=== PATIENT | female | born 1975 | race African-American/Black ===

== ENCOUNTER 2019-04-23 23:06 | Inpatient (IN) | payer OTHER ==
[2019-04-23] MEDS ORDERED: NORMAL SALINE 1000 ML 1,000 ML IV ONE (23:46)
--- NOTE | 2019-04-23 23:46 | ER Document Report ---
ED Medical Screen (RME) - General Chief Complaint: Nausea Stated Complaint: NAUSEA Time Seen by Provider: 04/23/19 23:35 Primary Care Provider: EYAD SMALLS MD [Primary Care Provider] - Follow up as needed Mode of Arrival: Wheelchair Information source: Patient, Relative Notes: 44-year-old female with history of sarcoidosis presents emergency department with altered mental status feeling very weak. Reports symptoms started on . Denies fever vomiting diarrhea. Reports she feels like she might be dehydrated. Patient reports she feels very very weak. Her cousin reports she is just not acting right. No obvious neuro deficit noted. I have greeted and performed a rapid initial assessment of this patient. A comprehensive ED assessment and evaluation of the patient, analysis of test results and completion of the medical decision making process will be conducted by additional ED providers. TRAVEL OUTSIDE OF THE [place] IN LAST 30 DAYS: No Physical Exam - Vital signs Vitals: Temp Pulse Resp BP Pulse Ox 98.5 F 127 H 20 99/59 L 95 04/23/19 23:14 04/23/19 23:14 04/23/19 23:14 04/23/19 23:14 04/23/19 23:14 Course - Vital Signs Vital signs: Temp Pulse Resp BP Pulse Ox 98.5 F 127 H 20 99/59 L 95 04/23/19 23:14 04/23/19 23:14 04/23/19 23:14 04/23/19 23:14 04/23/19 23:14 Doctor's Discharge - Discharge Referrals: EYAD SMALLS MD [Primary Care Provider] - Follow up as needed
[2019-04-24 01:00] LABS: HEMATOCRIT 38.6 % (36.0-47.0); HEMOGLOBIN 12.6 g/dL (12.0-15.5); MEAN CORPUSCULAR HEMOGLOBIN 22.7 pg (27.0-33.4); MEAN CORPUSCULAR HGB CONC 32.6 g/dL (32.0-36.0); MEAN CORPUSCULAR VOLUME 70 fl (80-97); PLATELET COUNT 377 10^3/uL (150-450); RED BLOOD COUNT 5.55 10^6/uL (3.72-5.28); WHITE BLOOD COUNT 20.1 10^3/uL (4.0-10.5)
[2019-04-24 01:17] LABS: ALBUMIN 4.6 g/dL (3.5-5.0); ALKALINE PHOSPHATASE 78 U/L (38-126); ASPARTATE AMINO TRANSFERASE 45 U/L (14-36); BILIRUBIN,DIRECT 0.6 mg/dL (0.0-0.4); BILIRUBIN,TOTAL 1.5 mg/dL (0.2-1.3); BLOOD UREA NITROGEN 67 mg/dL (7-20); CARBON DIOXIDE 26 mmol/L (22-30); CHLORIDE 93 mmol/L (98-107); GLUCOSE 182 mg/dL (75-110); POTASSIUM 3.9 mmol/L (3.6-5.0); TOTAL PROTEIN 9.1 g/dL (6.3-8.2)
--- NOTE | 2019-04-24 01:17 | RADIOLOGY REPORT (SQ) ---
EXAM DESCRIPTION: XR CHEST 1 VIEW COMPLETED DATE/TME: 04/23/2019 23:46 CLINICAL HISTORY: tachypneic COMPARISON: None. FINDINGS: Single frontal view of the chest. Cardiomediastinal silhouette: Normal size and contour. Lungs: Linear bibasilar opacities. Low lung volumes. Leads overlie the chest. Bones: No acute osseous abnormality. Upper abdomen: No abnormality identified. IMPRESSION: 1. Linear bibasilar opacities likely represent subsegmental atelectasis.
[2019-04-24 01:21] LABS: ABSOLUTE LYMPHOCYTES# (MANUAL) 1.8 10^3/uL (0.5-4.7); ABSOLUTE MONOCYTES # (MANUAL) 1.8 10^3/uL (0.1-1.4); ANISOCYTOSIS 1+; BAND NEUTROPHILS % (MANUAL) 5 % (3-5); BASOPHILS % (MANUAL) 0 % (0-2); EOSINOPHILS % (MANUAL) 0 % (0-6); LYMPHOCYTES % (MANUAL) 9 % (13-45); MONOCYTES % (MANUAL) 9 % (3-13); PLATELET COMMENT ADEQUATE; POLYCHROMASIA 1+; SEGMENTED NEUTROPHILS % (MAN) 77 % (42-78); TOTAL CELLS COUNTED 100
[2019-04-24 01:23] LABS: A TYPE INFLUENZA AG NEGATIVE (NEGATIVE); B INFLUENZA AG NEGATIVE (NEGATIVE)
[2019-04-24 01:25] LABS: ANION GAP 21 (5-19)
[2019-04-24 01:26] LABS: CALCIUM 14.3 mg/dL (8.4-10.2)
[2019-04-24] MEDS ORDERED: RINGERS SOLUTION,LACTATED 1,000 ML IV PRN (01:30)
[2019-04-24] MEDS ORDERED: CEFEPIME 2 GM/D5W RTU 2 GM/50 ML RTUPB IV ONE (01:33)
[2019-04-24] MEDS ORDERED: FENTANYL CITRATE INJ/PF 100 MCG/2 ML AMPUL IV ONE (01:38)
[2019-04-24] MEDS ORDERED: ONDANSETRON HCL INJ/PF 4 MG/2 ML SDV IV ONE (01:38)
--- NOTE | 2019-04-24 01:48 | ER Document Report ---
ED General <LUPE TRINIDAD IV - Last Filed: 04/24/19 05:22> - General Mode of Arrival: Wheelchair TRAVEL OUTSIDE OF THE [place] IN LAST 30 DAYS: No <LETYDORIAN BARRERACHIARA Abernathy - Last Filed: 04/25/19 02:40> - General Chief Complaint: General Weakness Stated Complaint: NAUSEA Time Seen by Provider: 04/23/19 23:35 - HPI Notes: Patient is a 44-year-old female who presents to the emergency department for evaluation. Patient's cousin is primary historian. She states the patient has a history of psoriatic/rheumatoid arthritis. On Wednesday she complained of "not feeling well." She thought that the patient might have the flu. She told her to rest, stay well-hydrated. On , the patient admitted she been having some constipation. She took some magnesium citrate, states she has not had a bowel movement since then. Today, patient's cousin was unable to contact her. She went to the house, knocked on the door for some time, and eventually found the patient confused. She brought her here to the emergency department for furt her evaluation. The patient complains of some abdominal pain. She has had some nausea but no emesis. She is unaware of any eze fevers. (MYA DIAZ) - Related Data Allergies/Adverse Reactions: No Known Allergies Allergy (Unverified 04/24/19 02:03) Past Medical History - General Information source: Patient, Relative - Social History Smoking Status: Never Smoker Family History: Reviewed & Not Pertinent Patient has suicidal ideation: No Patient has homicidal ideation: No - Past Medical History Cardiac Medical History: Reports: Hx Hypertension Musculoskeletal Medical History: Reports Hx Arthritis - Psoriatic/rheumatoid arthritis <MYA DIAZ - Last Filed: 04/25/19 02:40> Review of Systems - Review of Systems Constitutional: See HPI EENT: No symptoms reported Cardiovascular: No symptoms reported Respiratory: No symptoms reported Gastrointestinal: See HPI Genitourinary: No symptoms reported Musculoskeletal: No symptoms reported Skin: No symptoms reported Neurological/Psychological: See HPI <MYA DIAZ - Last Filed: 04/25/19 02:40> Physical Exam <MYA DIAZ - Last Filed: 04/25/19 02:40> - Vital signs Vitals: Temp Pulse Resp BP Pulse Ox 98.5 F 127 H 20 99/59 L 95 04/23/19 23:14 04/23/19 23:14 04/23/19 23:14 04/23/19 23:14 04/23/19 23:14 - Notes Notes: This is a pleasant, obese, 44-year-old female who appears her stated age in no acute distress. She is awake and alert. She is slow to answer questions, but answers them all appropriately. Vital signs reviewed, please refer to chart. H ead is normocephalic, atraumatic. Pupils equal round, reactive to light. Oral mucosa is slightly dry, uvula is midline. Neck is supple without meningismus. Heart is tachycardic. Lungs are clear to auscultation bilaterally. Abdomen is soft, moderately tender diffusely without rebound or guarding, normoactive bowel sounds throughout. Extremities without cyanosis, clubbing. Posterior calves are nontender. Peripheral pulses are equal. Skin is warm and dry. Patient is awake, alert, oriented x3. Cranial nerves II - XII are grossly intact without focal neurological deficits. Strength is plus 5 out of 5 bilateral upper and lower extremities. Sensation is intact. Reflexes symmetrical. Intact [id number], rapid alternating movements, [id number]. (MYA DIAZ) Course - Laboratory Result Diagrams: 04/24/19 00:20 04/24/19 00:20 - Consults teddy mg Time consulted: 05:23 - accepted pt for dr salcido <LUPE TRINIDAD IV - Last Filed: 04/24/19 05:22> - Laboratory Result Diagrams: 04/24/19 00:20 04/24/19 07:10 - Diagnostic Test Radiology reviewed: Reports reviewed <MYA DIAZ - Last Filed: 04/25/19 02:40> - Re-evaluation Re-evalutation: 04/24/19 01:49 Patient presents to the emergency department for evaluation. She had initial laboratory investigations as ordered per care set. She was given IV fluids. Laboratory investigations revealed a 20,000 white count, acute renal failure, highly elevated lactic acid, hypercalcemia. She is given IV fluids. She is covered for sepsis with cefepime. Cultures were obtained. Because of her renal failure, Velasco catheter is ordered. Secondary to her significant abdominal tenderness, CT scan of the abdomen and pelvis is ordered as well. At this point, patient's blood pressure is marginal, but she remains awake and alert. We will continue to monitor. 04/24/19 03:[address] Black in regards to this patient. Given her multiple issues, he was concerned that she should be admitted to the ICU. I spoke with Mark Robles, nurse practitioner and school business manager, in regards to this patient. He will come down and evaluate the patient to see if she meets ICU criteria. Patient will either be admitted to ICU or IMC, final disposition to be determined. (MYA DIAZ) - Vital Signs Vital signs: Temp Pulse Resp BP Pulse Ox 97.1 F 122 H 29 H 128/55 H 100 04/24/19 16:00 04/24/19 16:00 04/24/19 16:00 04/24/19 16:00 04/24/19 16:00 - Laboratory Laboratory results interpreted by me: 04/24/19 04/24/19 04/24/19 00:20 00:20 00:20 WBC 20.1 H RBC 5.55 H MCV 70 L MCH 22.7 L RDW 17.0 H Lymphocytes % (Manual) 9 L Abs Neuts (Manual) 16.5 H Abs Monocytes (Manual) 1.8 H Chloride 93 L Anion Gap 21 H BUN 67 H Creatinine 6.54 H Est GFR ( Amer) 8 L Est GFR (MDRD) Non-Af 7 L Glucose 182 H Lactic Acid 5.6 H Calcium 14.3 H* Total Bilirubin 1.5 H Direct Bilirubin 0.6 H AST 45 H Total Protein 9.1 H Lipase Urine Protein Urine Glucose (UA) Urine Ketones Urine Blood Ur Leukocyte Esterase 04/24/19 04/24/19 04/24/19 00:20 02:23 05:00 WBC RBC MCV MCH RDW Lymphocytes % (Manual) Abs Neuts (Manual) Abs Monocytes (Manual) Chloride Anion Gap BUN Creatinine Est GFR ( Amer) Est GFR (MDRD) Non-Af Glucose Lactic Acid 3.3 H Calcium Total Bilirubin Direct Bilirubin AST Total Protein Lipase 3973.5 H Urine Protein 100 H Urine Glucose (UA) 50 H Urine Ketones TRACE H Urine Blood MODERATE H Ur Leukocyte Esterase LARGE H - EKG Interpretation by Me Additional EKG results interpreted by me: 04/24/19 01:51 Sinus tachycardia with a rate of 136 bpm. Normal axis and intervals. No acute ST changes concerning for ischemia or infarction. (MYA DIAZ) Critical Care Note - Critical Care Note Total time excluding time spent on procedures (mins): 50 <MYA DIAZ - Last Filed: 04/25/19 02:40> Discharge - Discharge Admitting Provider: Irvin (Bridge Maintenance Worker) Unit Admitted: ICU <LUPE TRINIDAD IV - Last Filed: 04/24/19 05:22> - Discharge Admitting Provider: Irvni (Bridge Maintenance Worker) Unit Admitted: ICU <MYA DIAZ - Last Filed: 04/25/19 02:40> - Discharge Clinical Impression: Hypercalcemia, Severe sepsis Acute renal failure Qualifiers: Acute renal failure type: unspecified Qualified Code(s): N17.9 - Acute kidney failure, unspecified Urinary tract infection Qualifiers: Urinary tract infection type: site unspecified Hematuria presence: with hematuria Qualified Code(s): N39.0 - Urinary tract infection, site not specified Acute pancreatitis Qualifiers: Pancreatitis type: unspecified pancreatitis type Acute pancreatitis com plication: unspecified Qualified Code(s): K85.90 - Acute pancreatitis without necrosis or infection, unspecified Condition: Stable Disposition: ADMITTED INPATIENT
[2019-04-24] MEDS: NORMAL SALINE 1000 ML 1,000 ML IV PRN ×2 (02:17→03:20)
[2019-04-24 03:03] LABS: APPEARANCE,URINE CLOUDY; BILIRUBIN,URINE NEGATIVE (NEGATIVE); COLOR,URINE AMBER; GLUCOSE, URINE 50 mg/dL (NEGATIVE); KETONES,URINE TRACE mg/dL (NEGATIVE); LEUKOCYTE ESTERASE,URINE LARGE (NEGATIVE); NITRITE,URINE NEGATIVE (NEGATIVE); PROTEIN,URINE 100 mg/dL (NEGATIVE); URINE SPECIFIC GRAVITY 1.019; UROBILINOGEN,URINE NEGATIVE mg/dL (<2.0)
--- NOTE | 2019-04-24 03:10 | RADIOLOGY REPORT (SQ) ---
CT ABDOMEN AND PELVIS WITHOUT INTRAVENOUS CONTRAST: 04/24/2019 2:03 AM GENERAL FARMWORKER HISTORY: 44-year old with abdominal pain, sepsis. COMPARISON: None available TECHNIQUE: Axial contiguous images were obtained from the lung bases to the proximal femurs without oral or intravenous contrast administered. Sagittal and coronal reconstructions were also obtained and reviewed. This exam was performed according to our departmental dose-optimization program, which includes automated exposure control, adjustment of the mA and/or KV according to the patient's size and/or use of iterative reconstruction technique. FINDINGS: No large effusion is seen. There is some linear bibasilar atelectasis. There are some fine small groundglass nodules, most pronounced within the right middle lobe. These measure up to 7-8 mm. A small hiatal hernia containing portions of the stomach is seen. Evaluation of the solid organs is limited by the lack of intravenous contrast. The visualized hepatic parenchyma is unremarkable. The gallbladder demonstrates no evidence of calcified gallstones The spleen is normal in size and contour. There is mild fullness of the left adrenal gland which may be secondary to adjacent inflammation. The pancreas is enlarged with diffuse adjacent inflammatory stranding. No obvious fluid collection is seen. This may represent evolving pancreatitis. The kidneys demonstrate no evidence of hydronephrosis. There are multiple renal calculi at least 1.6 cm at the right renal pelvis and 7-8 mm at the left renal pelvis. These are beginning to form staghorn calculi. There is a calculus at the midportion of the left ureter measuring up to 5 to 6 mm. Bladder is decompressed by Velasco catheter, but grossly appears unremarkable. The stomach is not well distended. The small bowel loops appear unremarkable. No pericolonic inflammatory stranding is seen. The appendix appears unremarkable. There is no evidence of pneumoperitoneum. Trace free fluid is seen within the lower pelvis. The aorta and IVC appear normal in size. There are multiple prominent retroperitoneal lymph nodes measuring up to 1.5 cm. Review of the bone show no evidence of any suspicious lytic or blastic lesions. IMPRESSION: The pancreas is enlarged with adjacent inflammatory stranding consistent with pancreatitis. Trace free fluid is also seen. Multiple bilateral renal calculi are seen. These are beginning to form staghorn calculi. There is also a 5 to 6 mm calculus midportion of the left ureter. Groundglass nodules are seen within the lung bases measuring up to 7 to 8 mm. This could have an inflammatory/infectious etiology. These will need interval follow-up to exclude an underlying neoplasm. There are prominent retroperitoneal lymph nodes which could be reactive in nature. These also need subsequent interval follow-up.
[2019-04-24] MEDS ORDERED: NORMAL SALINE 1000 ML 1,000 ML IV ONE (03:13)
[2019-04-24] MEDS ORDERED: 1/2 NORMAL SALINE 1,000 ML IV PRN (05:12)
[2019-04-24] MEDS ORDERED: GLUCAGON,HUMAN RECOMB 1 MG INJ IM PRN (05:21)
[2019-04-24] MEDS ORDERED: DEXTROSE 40% GEL 15 GM TUBE PO PRN ×2 (05:21)
[2019-04-24] MEDS ORDERED: DEXTROSE 50%-WATER 25 GM/50 ML DISP.SYRIN IV PRN ×2 (05:21)
[2019-04-24] MEDS ORDERED: IMIPENEM/CILASTATIN SODIUM INJ 500 MG VIAL IV SCH (06:00)
--- NOTE | 2019-04-24 06:29 | EKG REPORT ---
SEVERITY:- ABNORMAL ECG - SINUS TACHYCARDIA PROBABLE INFERIOR INFARCT, AGE INDETERMINATE : Confirmed by: John Benjamin MD 24-Apr-2019 06:28:44
[2019-04-24] MEDS ORDERED: INFLUENZA QUAD (6MOS+) 2019-20 VAC 0.5 ML SYR IM ONE (06:57)
[2019-04-24] MEDS: INSULIN REG, HUMAN 100 UNIT/ML 3 ML VIAL (PYX) SUBCUT SCH ×2 (07:08→12:37)
--- NOTE | 2019-04-24 07:38 | CRITICAL CARE ADMISSION REPORT ---
HPI Date:: 04/24/19 Time:: 04:05 Reason for ICU Reason:: Sepsis, Acute Pancreatitis HPI: Mrs Hodge is a 44 year-old female with a past medical Hx significant for HTN, psoriatic as well as rheumatory arthritis for which she denied recent steroid use, and renal insufficiency (for which she does not know her baseline Cr) who presented to [facility] with altered mental status. Per the patient's cousin, Mrs Hodge has been feeling ill about one week for which she recently developed nausea with vomiting and mid-epigastric pain. To note, she was recently treated for UTI two weeks ago with "Cipro." An abdominal CT was performed demonstrating pancreatic stranding as well as trace free fluid, lipase 3974, no gallstones or gallbladder dilation, social drinking for which last use was Thanksgiving. She was also found to be in severe sepsis with leukocytosis of 20k, tachycardia on admission HR 142, initially hypotensive BP 87/59 but improved with fluids to 104/68, lactate of 5.6. Other notable labs are hypercalcemia of 14.3 and an CASSANDRA with BUN/Cr of 67/6.5 respectively. UA with + leuk est, + wbc, trace bacteria. Discussed with Dr Bryan and patient to be admitted to ICU for severe sepsis and acute pancreatitis. History obtained from:: patient, her cousin, ER physician, medical record - Diagnosis/Plan (1) Severe sepsis with acute organ dysfunction Is this a current diagnosis for this admission?: Yes Plan: Leukocytosis, tachycardia, hypotension, tachypnea present with renal end-organ dysfunction. Hydrate, trend lactate, empiric Abx as below. Blood and urine Cx's pending at this time. (2) Urinary tract infection Qualifiers: Urinary tract infection type: site unspecified Hematuria presence: with hematuria Qualified Code(s): N39.0 - Urinary tract infection, site not specified; R31.9 - Hematuria, unspecified Is this a current diagnosis for this admission?: Yes Plan: Suspect complicated cystitis with possibility of pyelonephritis also noting recent treatment with Ciprofloxacin two weeks ago per pt report. Will start empiric Iminepenem and Linezolid (instead of Vancomycin) due to CASSANDRA to avoid further nephrotoxicity at this time. AM cbc to evaluate leukocytosis. (3) Acute pancreatitis Qualifiers: Pancreatitis type: unspecified pancreatitis type Acute pancreatitis complication: unspecified Qualified Code(s): K85.90 - Acute pancreatitis without necrosis or infection, unspecified Is this a current diagnosis for this admission?: Yes Plan: NPO, aggressive hydration, repeat lipase in the morning. CT abdomen without gallstones or dilated gallbladder. Reports only social EtOH use, denies binge drinking, last use Thanks. F/U serial lactate; if continues to increase may need surgical consultation. (4) Acute kidney injury superimposed on CKD Is this a current diagnosis for this admission?: Yes Plan: Patient unaware of baseline serum Cr; may need to contact PCP for records later today during business hours. Serial BMP today trending renal function. Strict I&O via indwelling catheter. Monitor for hyperkalemia. (5) Acute pyelonephritis Is this a current diagnosis for this admission?: Yes Plan: Concerned for acute pyelonephritis given bilateral CVA tenderness, recently diana ated for UTI with Ciprofloxacin two weeks ago, and pyuria when indwelling catheter placed per ED RN stating she had to clean the urethra multiple times before insertion due to pus. Will start empiric Imipenem and Linezolid. (6) Hypercalcemia Is this a current diagnosis for this admission?: Yes Plan: Likely etiology for renal calculi. Concerning for malignancy or hyperthyroidism since level is so high; recommended that ER MD workup for malignancy/thyroid which is pending. Mother has Hx breast CA, pt reports recent mammogram in Jan 2019 was negative. (7) Renal calculus, bilateral Is this a current diagnosis for this admission?: Yes Plan: No evidence of obstructive uropathy at this time but will certainly need Urology consultation at some point in near future. (8) Ureteral calculus, left Is this a current diagnosis for this admission?: Yes Plan: Currently without obstructive uropathy, but will need Urology consult in near future. Past Medical History Cardiac Medical History: Reports: Hypertension Denies: Congestive Heart Failure, Coronary Artery Disease, Myocardial Infarction, Heart Murmur Pulmonary Medical History: Denies: Asthma, Chronic Obstructive Pulmonary Disease (COPD) EENT Medical History: Reports: None Neurological Medical History: Reports: None Endocrine Medical History: Reports: Obesity Denies: Diabetes Mellitus Type 2, Hyperthyroidism, Hypothyroidism Renal/ Medical History: Reports: Other - "renal insufficiency" but does not known baseline Cr Malignancy Medical History: Reports: None GI Medical History: Reports: None Musculoskeltal Medical History: Reports: Arthritis - Psoriatic/rheumatoid arthritis Skin Medical History: Reports: Psoriasis Hematology: Reports: None Infectious Medical History: Denies: Hepatitis B, Hepatitis C, HIV Past Surgical History Past Surgical History: Reports: None Social/Family History - Social History Lives with: Alone Smoking Status: Never Smoker Frequency of Alcohol Use: Rare Hx Recreational Drug Use: No - Family History Family History: Hyperlipidemia, Hypertension, Malignancy - mother had breast CA - Medication/Allergies Allergies/Adverse Reactions: No Known Allergies Allergy (Unverified 04/24/19 02:03) Review of Systems Constitutional: ABSENT: chills, fever(s), headache(s), night sweats Eyes: ABSENT: visual disturbances Ears: ABSENT: hearing changes Nose, Mouth, and Throat: ABSENT: mouth pain, sore throat, vertigo Breasts: ABSENT: other - denies tenderness; reports mammogram in Jan 2019 negative Cardiovascular: ABSENT: chest pain, dyspnea on exertion, edema, palpitations Respiratory: ABSENT: cough, dyspnea, hemoptysis, sputum Gastrointestinal: PRESENT: abdominal pain - epigastric pain, nausea, vomiting. ABSENT: coffee ground emesis, diarrhea, dysphagia, heartburn, hematemesis, hematochezia, melena Genitourinary: PRESENT: other - recent UTI 2 weeks ago for which she received Tx with "Cipro". ABSENT: difficulty urinating Musculoskeletal: PRESENT: back pain - bilateral posterior flank pain. ABSENT: deformity, joint swelling, muscle weakness Integumentary: PRESENT: lesions - psoriasis "back, abdomen, legs". ABSENT: d iaphoresis, erythema, pruritus, wounds Neurological: PRESENT: confusion - today per cousin report. ABSENT: convulsions, focal weakness, frequent falls, syncope Psychiatric: ABSENT: anxiety, depression, hallucinations Endocrine: ABSENT: cold intolerance, heat intolerance, menstrual abnormalities, polydipsia, polyphagia, polyuria Hematologic/Lymphatic: ABSENT: easy bleeding, easy bruising, lymphadenopathy Allergic/Immunologic: ABSENT: seasonal rhinorrhea Physical Exam Vital Signs: Temp Pulse Resp BP Pulse Ox 97.6 F 127 H 25 H 104/68 100 04/24/19 03:39 04/23/19 23:14 04/24/19 02:31 04/24/19 02:31 04/24/19 01:01 Intake & Output 04/22/19 04/23/19 04/24/19 06:59 06:59 06:59 Intake Total 2049 Balance 2049 Weight 128.3 kg Weight/Height Weight 128.3 kg Height 5 ft 2 in General appearance: PRESENT: no acute distress, cooperative, obese, well- nourished Head exam: PRESENT: atraumatic, normocephalic Eye exam: PRESENT: conjunctiva pink, EOMI, PERRLA. ABSENT: periorbital swelling, scleral icterus Ear exam: PRESENT: normal external ear exam. ABSENT: bleeding Mouth exam: PRESENT: neck supple, tongue midline. ABSENT: dry mucosa Throat exam: ABSENT: post pharyngeal erythema Neck exam: PRESENT: full ROM. ABSENT: JVD, lymphadenopathy, tenderness, thyromegaly, tracheal deviation Respiratory exam: PRESENT: clear to auscultation rose, tachypnea, unlabored. ABSENT: accessory muscle use, wheezes Cardiovascular exam: PRESENT: +S1, +S2, tachycardia - sinus tachycardia on telemetry. ABSENT: gallop, rubs, systolic murmur Pulses: PRESENT: normal carotid pulses, +2 pedal pulses bilateral Vascular exam: PRESENT: normal capillary refill GI/Abdominal exam: PRESENT: normal bowel sounds, tenderness - to epigastric region. ABSENT: guarding, Matos's sign, rebound Rectal exam: PRESENT: deferred Gentrourinary exam: PRESENT: lesions - psoriatic arthritis lesions to inner thighs and pubic mons region, urethral discharge - per ED RN was presence of pyuria upon indwelling catheter insertion, indwelling catheter - placed in ED, concentrated yellow urine, other - + bilateral CVA tenderness Extremities exam: PRESENT: full ROM, tenderness - to ankles when palpating posterior tibial arteries-pt reports that is her baseline arthritic pain. ABSENT: calf tenderness, clubbing Musculoskeletal exam: PRESENT: full ROM, normal inspection. ABSENT: dislocation Neurological exam: PRESENT: alert, awake, oriented to person, oriented to place, oriented to time, oriented to situation, CN II-XII grossly intact Psychiatric exam: PRESENT: flat affect Skin exam: PRESENT: dry, intact, normal color, warm Laboratory/Radiographs Laboratory Results: 04/24/19 00:20 04/24/19 04/24/19 04/24/19 00:20 00:20 00:20 WBC 20.1 H RBC 5.55 H Hgb 12.6 Hct 38.6 MCV 70 L MCH 22.7 L MCHC 32.6 RDW 17.0 H Plt Count 377 Seg Neutrophils % Not Reportable Sodium 140.3 Potassium 3.9 Chloride 93 L Carbon Dioxide 26 Anion Gap 21 H BUN 67 H Creatinine 6.54 H Est GFR ( Amer) 8 L Glucose 182 H Lactic Acid 5.6 H Calcium 14.3 H* Total Bilirubin 1.5 H AST 45 H Alkaline Phosphatase 78 Total Protein 9.1 H Albumin 4.6 Lipase Urine Color Urine Appearance Urine pH Ur Specific [place] Urine Protein Urine Glucose (UA) Urine Ketones Urine Blood Urine Nitrite Ur Leukocyte Esterase Urine WBC (Auto) Urine RBC (Auto) 04/24/19 04/24/19 00:20 02:23 WBC RBC Hgb Hct MCV MCH MCHC RDW Plt Count Seg Neutrophils % Sodium Potassium Chloride Carbon Dioxide Anion Gap BUN Creatinine Est GFR ( Amer) Glucose Lactic Acid Calcium Total Bilirubin AST Alkaline Phosphatase Total Protein Albumin Lipase 3973.5 H Urine Color ARIEL Urine Appearance CLOUDY Urine pH 5.0 Ur Specific [place] 1.019 Urine Protein 100 H Urine Glucose (UA) 50 H Urine Ketones TRACE H Urine Blood MODERATE H Urine Nitrite NEGATIVE Ur Leukocyte Esterase LARGE H Urine WBC (Auto) >182 Urine RBC (Auto) 25 Impressions: Chest X-Ray 04/23/19 23:46 IMPRESSION: 1. Linear bibasilar opacities likely represent subsegmental atelectasis. Abdomen/Pelvis CT 04/24/19 01:32 IMPRESSION: The pancreas is enlarged with adjacent inflammatory stranding consistent with pancreatitis. Trace free fluid is also seen. Multiple bilateral renal calculi are seen. These are beginning to form staghorn calculi. There is also a 5 to 6 mm calculus midportion of the left ureter. Groundglass nodules are seen within the lung bases measuring up to 7 to 8 mm. This could have an inflammatory/infectious etiology. These will need interval follow-up to exclude an underlying neoplasm. There are prominent retroperitoneal lymph nodes which could be reactive in nature. These also need subsequent interval follow-up. EKG: With T wave inversion in inferior wall leads. All labs, radiographs, diagnostic studies and EKGs were personally reviewed: Yes Critical Time Critical Time (minutes): 70 -: The care of a critically ill patient is dynamic. This note represents a static moment in the admission process. Orders and treatments may be given simultaneously and urgently, and time is not customer support representative of the treatment process. This patient requires Critical Care secondary to life threatening organ or limb dysfunction. Without Critical Care services, the patient is at risk for incre ased mortality and morbidity.
[2019-04-24 07:51] LABS: ANION GAP 15 (5-19); BLOOD UREA NITROGEN 67 mg/dL (7-20); CALCIUM 11.5 mg/dL (8.4-10.2); CARBON DIOXIDE 21 mmol/L (22-30); CHLORIDE 105 mmol/L (98-107); GLUCOSE 145 mg/dL (75-110); POTASSIUM 3.7 mmol/L (3.6-5.0)
[2019-04-24] MEDS: MORPHINE SULFATE 10 MG/ML INJ ONE ×2 (07:58→08:06)
[2019-04-24] MEDS ORDERED: HEPARIN SOD (PORCINE) 5,000 UNIT/ML 1 ML VIAL SUBCUT SCH (08:00)
[2019-04-24 08:07] LABS: FREE T3 1.88 pg/mL (2.77-5.27); FREE T4 (FREE THYROXINE) 1.53 ng/dL (0.78-2.19)
[2019-04-24 08:21] LABS: THYROID STIMULATING HORMONE 0.8 uIU/mL (0.47-4.68)
[2019-04-24] MEDS: IMIPENEM/CILASTATIN SODIUM 500 MG in NORMAL SALINE 100 ML IV SCH ×2 (08:25→12:38)
[2019-04-24] MEDS ORDERED: MORPHINE SULFATE 10 MG/ML INJ IV ONE ×2 (09:00→11:30)
[2019-04-24] MEDS ORDERED: LINEZOLID 600 MG/300 ML RTUPB IV SCH (10:00)
[2019-04-24] MEDS ORDERED: NORMAL SALINE 1000 ML 1,000 ML IV PRN (12:01)
--- NOTE | 2019-04-24 12:36 | PDOC CRITICAL CARE PROG REPORT ---
General Date:: 04/24/19 - Critical Care Attending Note Events in the past 12 to 24 Hours:: Pt continues to have pain. Remains tachycardic and tachypneic. Complains of pain in her epigastric region and in her right flank. Reason for ICU Addmission:: Sepsis, Acute Pancreatitis, pyelonephritis, hy percalcemia - Medications: Medications reviewed and adjusted accordingly: Yes Physical Exam Vital Signs: Temp Pulse Resp BP Pulse Ox 97.4 F 124 H 41 H 124/105 H 99 04/24/19 08:00 04/24/19 10:00 04/24/19 10:32 04/24/19 10:32 04/24/19 10:32 Intake & Output 04/23/19 04/24/19 04/25/19 06:59 06:59 06:59 Intake Total 3050 Output Total 395 Balance 3050 -395 Weight 128.3 kg Weight/Height Weight 128.3 kg Height 5 ft 2 in General appearance: PRESENT: no acute distress, well-developed, well-nourished Head exam: PRESENT: atraumatic, normocephalic Respiratory exam: PRESENT: rhonchi, tachypnea Cardiovascular exam: PRESENT: tachycardia GI/Abdominal exam: PRESENT: tenderness - TTP in epigastric region, right CVA tenderness Gentrourinary exam: PRESENT: indwelling catheter Neurological exam: PRESENT: alert, awake Skin exam: PRESENT: other - psoriatic lesions Laboratory/Radiographs Laboratory Results: 04/24/19 00:20 04/24/19 07:10 04/24/19 04/24/19 04/24/19 00:20 00:20 00:20 WBC 20.1 H RBC 5.55 H Hgb 12.6 Hct 38.6 MCV 70 L MCH 22.7 L MCHC 32.6 RDW 17.0 H Plt Count 377 Seg Neutrophils % Not Reportable Sodium 140.3 Potassium 3.9 Chloride 93 L Carbon Dioxide 26 Anion Gap 21 H BUN 67 H Creatinine 6.54 H Est GFR ( Amer) 8 L Est GFR (Non-Af Amer) Glucose 182 H Lactic Acid 5.6 H Calcium 14.3 H* Phosphorus Magnesium Total Bilirubin 1.5 H AST 45 H Alkaline Phosphatase 78 Total Protein 9.1 H Albumin 4.6 Lipase TSH Free T4 Free T3 pg/mL Urine Color Urine Appearance Urine pH Ur Specific [place] Urine Protein Urine Glucose (UA) Urine Ketones Urine Blood Urine Nitrite Ur Leukocyte Esterase Urine WBC (Auto) Urine RBC (Auto) 04/24/19 04/24/19 04/24/19 00:20 00:20 02:23 WBC RBC Hgb Hct MCV MCH MCHC RDW Plt Count Seg Neutrophils % Sodium Potassium Chloride Carbon Dioxide Anion Gap BUN Creatinine Est GFR ( Amer) Est GFR (Non-Af Amer) Glucose Lactic Acid Calcium Phosphorus Magnesium Total Bilirubin AST Alkaline Phosphatase Total Protein Albumin Lipase 3973.5 H TSH Cancelled Free T4 Cancelled Free T3 pg/mL Cancelled Urine Color ARIEL Urine Appearance CLOUDY Urine pH 5.0 Ur Specific [place] 1.019 Urine Protein 100 H Urine Glucose (UA) 50 H Urine Ketones TRACE H Urine Blood MODERATE H Urine Nitrite NEGATIVE Ur Leukocyte Esterase LARGE H Urine WBC (Auto) >182 Urine RBC (Auto) 25 04/24/19 04/24/19 04/24/19 05:00 05:00 05:00 WBC RBC Hgb Hct MCV MCH MCHC RDW Plt Count Seg Neutrophils % Sodium Cancelled Potassium Cancelled Chloride Cancelled Carbon Dioxide Cancelled Anion Gap Cancelled BUN Cancelled Creatinine Cancelled Est GFR ( Amer) Cancelled Est GFR (Non-Af Amer) Cancelled Glucose Cancelled Lactic Acid 3.3 H Calcium Cancelled Phosphorus Cancelled Magnesium Cancelled Total Bilirubin AST Alkaline Phosphatase Total Protein Albumin Lipase TSH Free T4 Free T3 pg/mL Urine Color Urine Appearance Urine pH Ur Specific [place] Urine Protein Urine Glucose (UA) Urine Ketones Urine Blood Urine Nitrite Ur Leukocyte Esterase Urine WBC (Auto) Urine RBC (Auto) 04/24/19 04/24/19 07:10 07:10 WBC RBC Hgb Hct MCV MCH MCHC RDW Plt Count Seg Neutrophils % Sodium 140.9 Potassium 3.7 Chloride 105 Carbon Dioxide 21 L Anion Gap 15 BUN 67 H Creatinine 4.84 H Est GFR ( Amer) 12 L Est GFR (Non-Af Amer) Glucose 145 H Lactic Acid Calcium 11.5 H Phosphorus 3.0 Magnesium 2.3 Total Bilirubin AST Alkaline Phosphatase Total Protein Albumin Lipase TSH 0.80 Free T4 1.53 Free T3 pg/mL 1.88 L Urine Color Urine Appearance Urine pH Ur Specific [place] Urine Protein Urine Glucose (UA) Urine Ketones Urine Blood Urine Nitrite Ur Leukocyte Esterase Urine WBC (Auto) Urine RBC (Auto) Impressions: Chest X-Ray 04/23/19 23:46 IMPRESSION: 1. Linear bibasilar opacities likely represent subsegmental atelectasis. Abdomen/Pelvis CT 04/24/19 01:32 IMPRESSION: The pancreas is enlarged with adjacent inflammatory stranding consistent with pancreatitis. Trace free fluid is also seen. Multiple bilateral renal calculi are seen. These are beginning to form staghorn calculi. There is also a 5 to 6 mm calculus midportion of the left ureter. Groundglass nodules are seen within the lung bases measuring up to 7 to 8 mm. This could have an inflammatory/infectious etiology. These will need interval follow-up to exclude an underlying neoplasm. There are prominent retroperitoneal lymph nodes which could be reactive in nature. These also need subsequent interval follow-up. Assessment and Plan - Diagnosis (1) Acute kidney injury superimposed on CKD Is this a current diagnosis for this admission?: Yes (2) Renal calculus, bilateral Is this a current diagnosis for this admission?: Yes (3) Acute pyelonephritis Is this a current diagnosis for this admission?: Yes (4) Acute pancreatitis Qualifiers: Pancreatitis type: unspecified pancreatitis type Acute pancreatitis complication: unspecified Qualified Code(s): K85.90 - Acute pancreatitis without necrosis or infection, unspecified Is this a current diagnosis for this admission?: Yes (5) Hypercalcemia Is this a current diagnosis for this admission?: Yes (7) Rheumatoid arthritis Is this a current diagnosis for this admission?: Yes (8) Sarcoid Is this a current diagnosis for this admission?: Yes (9) Ureteral calculus, left Is this a current diagnosis for this admission?: Yes Plan Summary: Assessment: critically ill 44 yo woman with severe sepsis, RA, sarcoidosis, p soriatic arthritis, complicated UTI, pyelonephritis, renal calculi, left ureteral stone, CASSANDRA, CKD, hypercalcemia, acute pancreatitis. Plan: 1. Respiratory: mild respiratory distress. Pt is tachypneic with respiratory rate in high 20s, low 30s. Is on nasal cannula. Continue to monitor respiratory status closely. 2. CV: sinus tachycardia. Hypotension, is resolving. SBP in the 120s. Continue IVF 3. Renal/Uro: CASSANDRA, CKD, complicated UTI, pyelonephritis, multiple renal stones, left ureteral calculi, hypercalcemia. Continue IV ATBX. Continue IVF. Cr has decreased from 6.54 to 4.84. Calcium has decreased romr 14.3 to 11.5. Pt needs a urology evaluation due to her extensive renal stones and her ureteral calculi. Will request transfer to [facility]. 4. ID: severe sepsis, complicated UTI, pyelonephritis. Continue zyvoxx. Will d/c primaxin due to severe CASSANDRA. Will resume cefepime. Cultures pending 5. GI: acute pancreatitis. 6. Rheum: sarcoidosis, RA, psoriathic arthritis 7. Nutrition: NPO 8. Prophylaxis: sq heparin 9. Disposition: request transfer to [facility] for urological evaluation. Critical Time Critical Time (minutes): 60 Level of Care: ICU -: 1. The care of a critical patient is a dynamic process. This note is a printing sales representative synopsis but static in nature. The timeframe for treatments given in order is not necessarily the actual time these treatments may have been done. 2. This patient requires critical care secondary to ongoing requirements for therapy not offered or safe outside the critical care environment. Transfer to a lower level of care will result in altered life or limb morbidity and mortality. 3. Multidisciplinary rounds completed. 4. ABCDE bundle addressed.
--- NOTE | 2019-04-24 14:07 | Progress Note ---
Provider Note Provider Note: Pt has been accepted to the ICU at [facility]. Dr. Forrest is the accepting physician.
--- NOTE | 2019-04-24 14:09 | PDOC TRANSFER SUMMARY ---
General Admission Date/PCP: 04/24/19 05:28 EYAD SMALLS MD - Transfer Diagnosis (1) Acute kidney injury superimposed on CKD Is this a current diagnosis for this admission?: Yes (2) Renal calculus, bilateral Is this a current diagnosis for this admission?: Yes (3) Acute pyelonephritis Is this a current diagnosis for this admission?: Yes (4) Acute pancreatitis Is this a current diagnosis for this admission?: Yes (5) Hypercalcemia Is this a current diagnosis for this admission?: Yes (7) Rheumatoid arthritis Is this a current diagnosis for this admission?: Yes (8) Sarcoid Is this a current diagnosis for this admission?: Yes (9) Ureteral calculus, left Is this a current diagnosis for this admission?: Yes - Transfer Medications Home Medications: Candesartan/Hydrochlorothiazid [Candesartan-Hctz 32-25 mg Tab] 1 tab PO DAILY 04/24/19 Esomeprazole Magnesium [Nexium 24Hr] 20 mg PO DAILYP PRN 04/24/19 Gabapentin [Neurontin 300 mg Capsule] 300 mg PO Q8 04/24/19 Ibuprofen [Motrin 800 mg Tablet] 800 mg PO BIDP PRN 04/24/19 Metoprolol Tartrate [Lopressor 50 mg Tablet] 50 mg PO Q12 04/24/19 Transfer Medications: Current Medications Dextrose (Dextrose Inj 50% Syringe (25 Gm/50 Ml)) 12.5 gm IV PRN PRN; Protocol PRN Reason: FOR BG 50-69 IN ALERT PATIENT Stop: 05/24/19 05:20 Dextrose (Dextrose Inj 50% Syringe (25 Gm/50 Ml)) 25 gm IV PRN PRN; Protocol PRN Reason: PER PROTOCOL Stop: 05/24/19 05:20 Glucagon (Glucagen Inj 1 Mg Vial) 1 mg IM PRN PRN; Protocol PRN Reason: Evaluate for BG < 70 Stop: 05/24/19 05:20 Glucose (Glutose 40% Gel 15 Gm Tube) 15 gm PO PRN PRN; Protocol PRN Reason: FOR BG 50-69 IN ALERT PATIENT Stop: 05/24/19 05:20 Glucose (Glutose 40% Gel 15 Gm Tube) 30 gm PO PRN PRN; Protocol PRN Reason: FOR BG < 50 IN ALERT PATIENT Stop: 05/24/19 05:20 Heparin Sodium (Porcine) (Heparin Inj 5,000 Units/Ml 1 Ml Vial) 7,500 unit SUBCUT Q8H [facility] Last Admin: 04/24/19 09:21 Dose: Not Given Documented by: Linezolid (Zyvox Rtu 600 Mg/300 Ml Premixed) 600 mg in 300 mls @ 300 mls/hr IV Q12 [facility] Stop: 05/01/19 09:59 Last Infusion: 04/24/19 11:55 Dose: Infused Documented by: Sodium Chloride (Nacl 0.9% 1000 Ml Iv Soln) 1,000 mls @ 75 mls/hr IV CONTINUOUS PRN PRN Reason: THIS MED IS NOT "PRN" Stop: 05/24/19 12:00 Last Admin: 04/24/19 12:37 Dose: 75 mls/hr Documented by: Cefepime HCl (Maxipime Rtu 1 Gm/D5w 50 Ml Premix Bag) 1 gm in 50 mls @ 100 mls/hr IV DAILY [facility] Stop: 05/02/19 09:59 Insulin Human Regular (Humulin R (Pyxis) Insulin 100 Unit/Ml 3ml) 0 - 12 unit SUBCUT Q6 [facility]; Protocol Stop: 05/24/19 05:59 Last Admin: 04/24/19 12:37 Dose: Not Given Documented by: Sodium Chloride (Saline Flush 2.5 Ml Monoject Prefil Syrin) 2.5 ml IV Q8 [facility] Stop: 05/24/19 05:59 Last Admin: 04/24/19 07:08 Dose: Not Given Documented by: - Allergies Allergies/Adverse Reactions: No Known Allergies Allergy (Unverified 04/24/19 02:03) Hospital Course Hospital Course: Assessment: critically ill 44 yo woman with severe sepsis, RA, sarcoidosis, psoriatic arthritis, complicated UTI, pyelonephritis, renal calculi, left ureteral stone, CASSANDRA, CKD, hypercalcemia, acute pancreatitis. Plan: 1. Respiratory: mild respiratory distress. Pt is tachypneic with respiratory rate in high 20s, low 30s. Is on nasal cannula. Continue to monitor respiratory status closely. 2. CV: sinus tachycardia. Hypotension, is resolving. SBP in the 120s. Continue IVF 3. Renal/Uro: CASSANDRA, CKD, complicated UTI, pyelonephritis, multiple renal stones, left ureteral calculi, hypercalcemia. Continue IV ATBX. Continue IVF. Cr has decreased from 6.54 to 4.84. Calcium has decreased romr 14.3 to 11.5. Pt needs a urology evaluation due to her extensive renal stones and her ureteral calculi. Will request transfer to [facility]. 4. ID: severe sepsis, complicated UTI, pyelonephritis. Continue zyvoxx. Will d/c primaxin due to severe CASSANDRA. Will resume cefepime. Cultures pending 5. GI: acute pancreatitis. 6. Rheum: sarcoidosis, RA, psoriathic arthritis 7. Nutrition: NPO 8. Prophylaxis: sq heparin 9. Disposition: transfer to [facility] Physical Exam Vital Signs: Temp Pulse Resp BP Pulse Ox 98.4 F 119 H 30 H 127/80 H 100 04/24/19 12:00 04/24/19 12:00 04/24/19 12:00 04/24/19 12:00 04/24/19 12:00 Intake & Output 04/23/19 04/24/19 04/25/19 06:59 06:59 06:59 Intake Total 3050 300 Output Total 695 Balance 3050 -395 Weight 128.3 kg General appearance: PRESENT: well-developed, well-nourished, other - tachypnea Head exam: PRESENT: atraumatic, normocephalic Respiratory exam: PRESENT: tachypnea Cardiovascular exam: PRESENT: tachycardia GI/Abdominal exam: PRESENT: tenderness, other - right flank pain Results Laboratory Results: 04/24/19 00:20 04/24/19 07:10 04/24/19 04/24/19 04/24/19 00:20 00:20 00:20 WBC 20.1 H RBC 5.55 H Hgb 12.6 Hct 38.6 MCV 70 L MCH 22.7 L MCHC 32.6 RDW 17.0 H Plt Count 377 Seg Neutrophils % Not Reportable Sodium 140.3 Potassium 3.9 Chloride 93 L Carbon Dioxide 26 Anion Gap 21 H BUN 67 H Creatinine 6.54 H Est GFR ( Amer) 8 L Est GFR (Non-Af Amer) Glucose 182 H Lactic Acid 5.6 H Calcium 14.3 H* Phosphorus Magnesium Total Bilirubin 1.5 H AST 45 H Alkaline Phosphatase 78 Total Protein 9.1 H Albumin 4.6 Lipase TSH Free T4 Free T3 pg/mL Urine Color Urine Appearance Urine pH Ur Specific [place] Urine Protein Urine Glucose (UA) Urine Ketones Urine Blood Urine Nitrite Ur Leukocyte Esterase Urine WBC (Auto) Urine RBC (Auto) 04/24/19 04/24/19 04/24/19 00:20 00:20 02:23 WBC RBC Hgb Hct MCV MCH MCHC RDW Plt Count Seg Neutrophils % Sodium Potassium Chloride Carbon Dioxide Anion Gap BUN Creatinine Est GFR ( Amer) Est GFR (Non-Af Amer) Glucose Lactic Acid Calcium Phosphorus Magnesium Total Bilirubin AST Alkaline Phosphatase Total Protein Albumin Lipase 3973.5 H TSH Cancelled Free T4 Cancelled Free T3 pg/mL Cancelled Urine Color ARIEL Urine Appearance CLOUDY Urine pH 5.0 Ur Specific [place] 1.019 Urine Protein 100 H Urine Glucose (UA) 50 H Urine Ketones TRACE H Urine Blood MODERATE H Urine Nitrite NEGATIVE Ur Leukocyte Esterase LARGE H Urine WBC (Auto) >182 Urine RBC (Auto) 25 04/24/19 04/24/19 04/24/19 05:00 05:00 05:00 WBC RBC Hgb Hct MCV MCH MCHC RDW Plt Count Seg Neutrophils % Sodium Cancelled Potassium Cancelled Chloride Cancelled Carbon Dioxide Cancelled Anion Gap Cancelled BUN Cancelled Creatinine Cancelled Est GFR ( Amer) Cancelled Est GFR (Non-Af Amer) Cancelled Glucose Cancelled Lactic Acid 3.3 H Calcium Cancelled Phosphorus Cancelled Magnesium Cancelled Total Bilirubin AST Alkaline Phosphatase Total Protein Albumin Lipase TSH Free T4 Free T3 pg/mL Urine Color Urine Appearance Urine pH Ur Specific [place] Urine Protein Urine Glucose (UA) Urine Ketones Urine Blood Urine Nitrite Ur Leukocyte Esterase Urine WBC (Auto) Urine RBC (Auto) 04/24/19 04/24/19 07:10 07:10 WBC RBC Hgb Hct MCV MCH MCHC RDW Plt Count Seg Neutrophils % Sodium 140.9 Potassium 3.7 Chloride 105 Carbon Dioxide 21 L Anion Gap 15 BUN 67 H Creatinine 4.84 H Est GFR ( Amer) 12 L Est GFR (Non-Af Amer) Glucose 145 H Lactic Acid Calcium 11.5 H Phosphorus 3.0 Magnesium 2.3 Total Bilirubin AST Alkaline Phosphatase Total Protein Albumin Lipase TSH 0.80 Free T4 1.53 Free T3 pg/mL 1.88 L Urine Color Urine Appearance Urine pH Ur Specific [place] Urine Protein Urine Glucose (UA) Urine Ketones Urine Blood Urine Nitrite Ur Leukocyte Esterase Urine WBC (Auto) Urine RBC (Auto) 04/24/19 11:45 Troponin I < 0.012 Impressions: Chest X-Ray 04/23/19 23:46 IMPRESSION: 1. Linear bibasilar opacities likely represent subsegmental atelectasis. Abdomen/Pelvis CT 04/24/19 01:32 IMPRESSION: The pancreas is enlarged with adjacent inflammatory stranding consistent with pancreatitis. Trace free fluid is also seen. Multiple bilateral renal calculi are seen. These are beginning to form staghorn calculi. There is also a 5 to 6 mm calculus midportion of the left ureter. Groundglass nodules are seen within the lung bases measuring up to 7 to 8 mm. This could have an inflammatory/infectious etiology. These will need interval follow-up to exclude an underlying neoplasm. There are prominent retroperitoneal lymph nodes which could be reactive in nature. These also need subsequent interval follow-up. Plan Discharge Plan: Pt has been accepted to the ICU at [facility]. Dr. Forrest is the accepting physician. Time Spent: Greater than 30 Minutes
[2019-04-24 16:47] VITALS: BP 128/55
[2019-04-25] MEDS ORDERED: CEFEPIME 1 GM/D5W RTU 1 GM/50 ML RTUPB IV SCH (10:00)
== END 2019-04-24 17:23 | disposition short-term general hospital (02) | DRG 871 ==
LOC: ER 23:06 → EH 04-24 05:28 → ICU 04-24 06:10
PROVIDERS: ADMIT Anesthesiology; ATTEND Anesthesiology
DX: A41.9 Sepsis, unspecified organism (principal); K85.90 Acute pancreatitis without necrosis or infection, unspecified; N17.9 Acute kidney failure, unspecified; N20.1 Calculus of ureter; N10 Acute pyelonephritis; N39.0 Urinary tract infection, site not specified; L40.50 Arthropathic psoriasis, unspecified; R65.20 Severe sepsis without septic shock; N18.9 Chronic kidney disease, unspecified; N20.0 Calculus of kidney; E83.52 Hypercalcemia; M06.9 Rheumatoid arthritis, unspecified; D86.9 Sarcoidosis, unspecified; R31.9 Hematuria, unspecified; I12.9 Hypertensive chronic kidney disease with stage 1 through stage 4 chronic kidney disease, or unspecified chronic kidney disease; E66.9 Obesity, unspecified; L40.9 Psoriasis, unspecified; Z28.21 Immunization not carried out because of patient refusal; Z82.49 Family history of ischemic heart disease and other diseases of the circulatory system
CPT/HCPCS: 36415; 71045; 74176; 80053; 81001; 81025; 82150; 82962; 83605; 83690; 83735; 84100; 84439; 84443; 84481; 84484; 85025; 86300; 86304; 87040; 87086; 87804; 93005; 93010; 96361; 96365; 96375; 99239; 99291; 99292; J0692; J2020; J2270; J2405; J3010; J7030

== ENCOUNTER 2019-05-22 15:26 | Inpatient (IN) | payer OTHER ==
[2019-05-22] MEDS ORDERED: NORMAL SALINE 1000 ML 1,000 ML IV ONE ×2 (16:25)
[2019-05-22] MEDS ORDERED: CEFEPIME 2 GM/D5W RTU 2 GM/50 ML RTUPB IV ONE (16:25)
[2019-05-22 17:04] LABS: ABSOLUTE BASOPHILS # (AUTO) 0.1 10^3/uL (0.0-0.2); ABSOLUTE EOSINOPHILS # (AUTO) 0.1 10^3/uL (0.0-0.6); ABSOLUTE LYMPHOCYTES (AUTO) 0.7 10^3/uL (0.5-4.7); ABSOLUTE MONOCYTES (AUTO) 0.8 10^3/uL (0.1-1.4); ABSOLUTE NEUT (AUTO) 5.6 10^3/uL (1.7-8.2); BASOPHILS % (AUTO) 0.7 % (0-2); EOSINOPHILS % (AUTO) 1.4 % (0-6); HEMATOCRIT 31.9 % (36.0-47.0); HEMOGLOBIN 9.7 g/dL (12.0-15.5); LYMPHOCYTES % (AUTO) 10.1 % (13-45); MEAN CORPUSCULAR HEMOGLOBIN 21.5 pg (27.0-33.4); MEAN CORPUSCULAR HGB CONC 30.5 g/dL (32.0-36.0); MEAN CORPUSCULAR VOLUME 71 fl (80-97); MONOCYTES % (AUTO) 10.7 % (3-13); PLATELET COUNT 276 10^3/uL (150-450); RED BLOOD COUNT 4.52 10^6/uL (3.72-5.28); RED CELL DISTRIBUTION WIDTH 18.3 % (11.5-14.0); SEGMENTED NEUTROPHILS % (AUTO) 77.1 % (42-78); TOTAL CELLS COUNTED % (AUTO) 100 %; WHITE BLOOD COUNT 7.3 10^3/uL (4.0-10.5)
[2019-05-22 17:10] LABS: INTERNATIONAL RATION (INR) 1.11; PROTHROMBIN TIME 14.4 SEC (11.4-15.4)
[2019-05-22 17:12] LABS: VENOUS BLOOD BASE EXCESS -8.8 mmol/L; VENOUS BLOOD HCO3 17.7 mmol/L (20-32); VENOUS BLOOD PCO2 40.2 mmHg (35-63); VENOUS BLOOD PH 7.26 (7.30-7.42)
--- NOTE | 2019-05-22 17:12 | RADIOLOGY REPORT (SQ) ---
EXAM DESCRIPTION: CHEST SINGLE VIEW COMPLETED DATE/TIME: 05/22/2019 4:50 pm REASON FOR STUDY: ams COMPARISON: 04/24/2011 EXAM PARAMETERS: NUMBER OF VIEWS: One view. TECHNIQUE: Single frontal radiographic view of the chest acquired. RADIATION DOSE: NA LIMITATIONS: None. FINDINGS: LUNGS AND PLEURA: No opacities, masses or pneumothorax. No pleural effusion. MEDIASTINUM AND HILAR STRUCTURES: No masses. Contour normal. HEART AND VASCULAR STRUCTURES: Heart normal in size. Normal vasculature. BONES: No acute findings. HARDWARE: None in the chest. OTHER: No other significant finding. IMPRESSION: NO ACUTE RADIOGRAPHIC FINDING IN THE CHEST. TECHNICAL DOCUMENTATION: JOB ID: [id number] 2010 [employer]- All Rights Reserved Reading location - IP/workstation name: [email or web address]
[2019-05-22 17:27] LABS: ALBUMIN 3.8 g/dL (3.5-5.0); ALKALINE PHOSPHATASE 95 U/L (38-126); ASPARTATE AMINO TRANSFERASE 23 U/L (14-36); BILIRUBIN,DIRECT 0.7 mg/dL (0.0-0.4); BILIRUBIN,TOTAL 0.7 mg/dL (0.2-1.3); BLOOD UREA NITROGEN 112 mg/dL (7-20); POTASSIUM 5.8 mmol/L (3.6-5.0); TOTAL PROTEIN 7.8 g/dL (6.3-8.2)
[2019-05-22 17:32] LABS: CARBON DIOXIDE 16 mmol/L (22-30); CHLORIDE 88 mmol/L (98-107)
[2019-05-22 17:59] LABS: CALCIUM 13.9 mg/dL (8.4-10.2); GLUCOSE 993 mg/dL (75-110)
[2019-05-22 18:00] LABS: ANION GAP 27 (5-19)
[2019-05-22] MEDS: VANCOMYCIN HCL INJ 1000 MG VIAL IV ONE (18:11)
--- NOTE | 2019-05-22 18:11 | EKG REPORT ---
SEVERITY:- BORDERLINE ECG - SINUS TACHYCARDIA BORDERLINE PROLONGED QT INTERVAL : Confirmed by: Safia Payton MD 22-May-2019 18:09:26
[2019-05-22] MEDS ORDERED: ACETAMINOPHEN 325 MG TABLET PO PRN (18:28)
[2019-05-22 18:30] LABS: APPEARANCE,URINE CLOUDY; BILIRUBIN,URINE NEGATIVE (NEGATIVE); COLOR,URINE YELLOW; GLUCOSE, URINE >=500 mg/dL (NEGATIVE); KETONES,URINE 20 mg/dL (NEGATIVE); PROTEIN,URINE 30 mg/dL (NEGATIVE); URINE SPECIFIC GRAVITY 1.014; UROBILINOGEN,URINE NEGATIVE mg/dL (<2.0)
[2019-05-22] MEDS ORDERED: INSULIN REG, HUMAN 100 UNIT/ML 3 ML VIAL (PYX) ONE (18:32)
--- NOTE | 2019-05-22 18:43 | ER Document Report ---
ED Dizziness/Weakness - General Chief Complaint: General Weakness Stated Complaint: WEAKNESS/POSSIBLE SEPSIS Time Seen by Provider: 05/22/19 15:55 Primary Care Provider: EYAD SMALLS MD [Primary Care Provider] - Follow up as needed Mode of Arrival: Medic Information source: Patient TRAVEL OUTSIDE OF THE [place] IN LAST 30 DAYS: No - HPI Notes: Patient is brought in by paramedics for weakness. Paramedics state they were called by family because patient was weak. They said they found patient with a low blood pressure and confusion. Patient arrives here and still has some confusion. She also complains of feeling very weak. Due to her confusion she is somewhat of a poor historian. She states that she was recently admitted to the ICU and then transferred due to some kidney stones. She also had pancreatitis. She states she is having severe constant abdominal pain now that is in the front. Nothing makes it better or worse. Does not radiate. It is sharp and burning. She denies any problems with stool or urine. No known fevers. No known vomiting. - Related Data Allergies/Adverse Reactions: No Known Allergies Allergy (Unverified 04/24/19 02:03) Past Medical History - General Information source: Patient, Relative - Social History Smoking Status: Never Smoker Frequency of alcohol use: None Drug Abuse: None Family History: Reviewed & Not Pertinent Patient has suicidal ideation: No Patient has homicidal ideation: No - Past Medical History Cardiac Medical History: Reports: Hx Hypertension Denies: Hx Congestive Heart Failure, Hx Coronary Artery Disease, Hx Heart Attack, Hx Heart Murmur Pulmonary Medical History: Denies: Hx Asthma, Hx COPD Endocrine Medical History: Denies: Hx Diabetes Mellitus Type 2, Hx Hyperthyroidism, Hx Hypothyroidism Musculoskeletal Medical History: Reports Hx Arthritis - Psoriatic/rheumatoid arthritis Skin Medical History: Reports Hx Psoriasis Infectious Medical History: Denies: Hx HIV Review of Systems - Review of Systems Constitutional: Malaise, Weakness. denies: Fever Cardiovascular: denies: Chest pain, Palpitations Respiratory: denies: Cough, Short of breath Neurological/Psychological: Confusion -: Yes All other systems reviewed and negative Physical Exam - Vital signs Vitals: Pulse Ox 100 05/22/19 15:56 Interpretation: Hypotensive, Tachycardic, Other - Hypothermia - General General appearance: Alert In distress: Moderate - HEENT Head: Normocephalic, Atraumatic Eyes: Normal Pupils: PERRL - Respiratory Respiratory status: No respiratory distress Chest status: Nontender Breath sounds: Normal Chest palpation: Normal - Cardiovascular Rhythm: Tachycardia Heart sounds: Normal auscultation Murmur: No - Abdominal Inspection: Normal Distension: Distended Bowel sounds: Hypoactive Tenderness: Tender - Mild diffuse Organomegaly: No organomegaly - Back Back: Normal, Nontender - Extremities General upper extremity: Normal inspection, Nontender, Normal color General lower extremity: Normal inspection, Nontender, Normal color, Normal ROM. No: Leigh's sign - Neurological Cognition: Confused Orientation: Disoriented to time [place] Coma Scale Eye Opening: Spontaneous Shanna Coma Scale Verbal: Confused [place] Coma Scale Motor: Obeys Commands [place] Coma Scale Total: 14 Speech: Normal Motor strength normal: LUE, RUE, LLE, RLE Sensory: Normal - Psychological Associated symptoms: Depressed, Flat affect, Psychomotor depression - Skin Skin Temperature: Warm Skin Moisture: Dry Skin Color: Normal Course - Re-evaluation Re-evalutation: 05/22/19 18:41 Patient presents with a myriad of abnormalities. Patient is acidotic with an elevated lactate. This seems to be most likely due to dehydration patient does seem to be in diabetic ketoacidosis and will be treated with fluids and insulin. She is most likely developed a secondary to loss of pancreatic function due to her pancreatitis. Also patient may possibly be septic since she is hypothermic and has had a recent urinary tract infection. She has been covered with cefepime. Vancomycin was held at the request of the forest nursery supervisor due to patient's elevated creatinine. Her acute renal failure seems most likely due to dehydration. Patient's high calcium should come down with fluids. Her high potassium should also come down with fluids. She has been placed on a bear hugger for her hypothermia. She is going to be admitted to the ICU and has been seen by the forest nursery supervisor. Patient's blood pressure initially was in the 70s systolic patient's blood pressure is now in the 90s systolic. She is on her third liter of fluid. - Vital Signs Vital signs: Temp Pulse Resp BP Pulse Ox 94.7 F L 19 94/51 L 98 05/22/19 16:14 05/22/19 18:01 05/22/19 18:00 05/22/19 18:01 - Laboratory Result Diagrams: 05/22/19 16:40 05/22/19 16:40 Laboratory results interpreted by me: 05/22/19 05/22/19 05/22/19 16:40 16:40 16:40 Hgb 9.7 L Hct 31.9 L MCV 71 L MCH 21.5 L MCHC 30.5 L RDW 18.3 H Lymph % (Auto) 10.1 L VBG pH 7.26 L VBG HCO3 17.7 L Sodium 130.7 L Potassium 5.8 H Chloride 88 L Carbon Dioxide 16 L Anion Gap 27 H BUN 112 H Creatinine 8.43 H Est GFR ( Amer) 6 L Est GFR (MDRD) Non-Af 5 L Glucose 993 H* Lactic Acid Calcium 13.9 H* Direct Bilirubin 0.7 H Lipase 3484.7 H Urine Protein Urine Glucose (UA) Urine Ketones Urine Blood Leukocyte Esterase Rfl 05/22/19 05/22/19 16:40 18:00 Hgb Hct MCV MCH MCHC RDW Lymph % (Auto) VBG pH VBG HCO3 Sodium Potassium Chloride Carbon Dioxide Anion Gap BUN Creatinine Est GFR ( Amer) Est GFR (MDRD) Non-Af Glucose Lactic Acid 2.8 H Calcium Direct Bilirubin Lipase Urine Protein 30 H Urine Glucose (UA) >=500 H Urine Ketones 20 H Urine Blood LARGE H Leukocyte Esterase Rfl LARGE H - Diagnostic Test Radiology reviewed: Image reviewed, Reports reviewed - EKG Interpretation by Me EKG shows normal: Sinus rhythm Rate: Tachycardia - 101 Rhythm: NSR [place]/QRS: No: Right axis deviation, Left axis deviation Critical Care Note - Critical Care Note Total time excluding time spent on procedures (mins): 80 Comments: Approximately 80 minutes of critical care time were spent on this acidotic, possibly septic, diabetic, hypothermic, hypercalcemic, hyperkalemic, altered patient. This time was spent doing multiple reassessments. It was spent reviewing old records. It was spent talking to multiple consultants. It was spent discussing with family. It was spent reviewing imaging and laboratory values. Discharge - Discharge Clinical Impression: Hyperkalemia, Hypercalcemia, Sarcoid, Confused, Dehydration Hypothermia Qualifiers: Encounter type: initial encounter Qualified Code(s): T68.XXXA - Hypothermia, initial encounter Acute renal failure Qualifiers: Acute renal failure type: unspecified Qualified Code(s): N17.9 - Acute kidney f ailure, unspecified Acute pancreatitis Qualifiers: Pancreatitis type: other Acute pancreatitis complication: uninfected necrosis Qualified Code(s): K85.81 - Other acute pancreatitis with uninfected necrosis Diabetic ketoacidosis Qualifiers: Diabetes mellitus type: other specified (including ALETHA) Diabetes mellitus complication detail: without coma Qualified Code(s): E13.10 - Other specified di abetes mellitus with ketoacidosis without coma Hypotension Qualifiers: Hypotension type: hypotension due to hypovolemia Qualified Code(s): I95.89 - Other hypotension; E86.1 - Hypovolemia Condition: Critical Disposition: ADMITTED INPATIENT Admitting Provider: Irvin (Parquet Floor [employer]) Unit Admitted: ICU Referrals: EYAD SMALLS MD [Primary Care Provider] - Follow up as needed
--- NOTE | 2019-05-22 19:00 | RADIOLOGY REPORT (SQ) ---
EXAM DESCRIPTION: CT ABD/PELVIS NO ORAL OR IV COMPLETED DATE/TIME: 05/22/2019 6:35 pm REASON FOR STUDY: abd pain/hx stones/panc COMPARISON: 04/24/2019 TECHNIQUE: CT scan of the abdomen and pelvis performed without intravenous or oral contrast. Images reviewed with lung, soft tissue, and bone windows. Reconstructed coronal and sagittal MPR images revi ewed. All images stored on PACS. All CT scanners at this facility use dose modulation, iterative reconstruction, and/or weight based d osing when appropriate to reduce radiation dose to as low as reasonably achievable (ALARA). [facility]: Dose Right [facility]: CareDose [facility]: Dose Right [facility]: Teradose 4D [facility]: [employer] RADIATION DOSE: CT Rad equipment meets quality standard of care and radiation dose reduction techniq ues were employed. CTDIvol: 15.6 mGy. DLP: 810 mGy-cm.mGy. LIMITATIONS: None. FINDINGS: There are new innumerable tiny nodules present throughout the mesentery and upper retrope ritoneum which involves the left upper quadrant as well as in the midline of the lower abdomen in the mesentery of the small bowel as well as the left pericolic gutter. Since the prior examination there has been development of fluid collections near the tail and distal body of the pancreas, 3 collections measure greater than 3.5 cm each. Similar retroperitoneal adenopathy is again noted. There are newly placed bilateral ureteral stents. There is a Velasco catheter decompressing the bladde r. Calcified stones are present both kidneys. OTHER: Bulky percent lymphadenopathy in the infrahilar and lower paraesophageal locations. IMPRESSION: There are new innumerable tiny nodules present throughout the mesentery and upper retrop eritoneum which involves the left upper quadrant as well as in the midline of the lower abdomen in th e mesentery of the small bowel as well as the left pericolic gutter. Bulky percent lymphadenopathy in the infrahilar and lower paraesophageal locations. These findings are concerning for possible neopla stic process. Since the prior examination there has been development of fluid collections near the tail and distal body of the pancreas, 3 collections measure greater than 3.5 cm each. COMMENT: Consider surgical consultation if not previously obtained. TECHNICAL DOCUMENTATION: JOB ID: [id number] [place]-72 Quality ID # [id number]: Final reports with documentation of one or more dose reduction techniques (e.g., Au tomated exposure control, adjustment of the mA and/or kV according to patient size, use of iterative reconstruction technique) 2010 [employer]- All Rights Reserved Reading location - IP/workstation name: [email or web address]
[2019-05-22] MEDS: NORMAL SALINE 100 ML with INSULIN REGULAR, HUMAN 100 UNIT IV PRN ×2 (19:19)
[2019-05-22] MEDS: NORMAL SALINE 1000 ML 1,000 ML IV PRN (20:28)
[2019-05-22 21:17] LABS: ALBUMIN 3.3 g/dL (3.5-5.0); ALKALINE PHOSPHATASE 89 U/L (38-126); AMYLASE 121 U/L (30-110); ASPARTATE AMINO TRANSFERASE 17 U/L (14-36); BILIRUBIN,DIRECT 0.6 mg/dL (0.0-0.4); BILIRUBIN,TOTAL 0.6 mg/dL (0.2-1.3); BLOOD UREA NITROGEN 96 mg/dL (7-20); POTASSIUM 4.9 mmol/L (3.6-5.0); TOTAL PROTEIN 7.1 g/dL (6.3-8.2)
[2019-05-22 21:22] LABS: CARBON DIOXIDE 16 mmol/L (22-30); CHLORIDE 98 mmol/L (98-107)
[2019-05-22 21:26] LABS: ANION GAP 22 (5-19)
[2019-05-22 21:29] LABS: CALCIUM 12.4 mg/dL (8.4-10.2); GLUCOSE 762 mg/dL (75-110)
[2019-05-22] MEDS ORDERED: INFLUENZA QUAD (6MOS+) 2019-20 VAC 0.5 ML SYR IM ONE (22:44)
[2019-05-22] MEDS ORDERED: LIDOCAINE 1% INJ (10 MG/ML) 10 ML MDV INJ ONE (23:04)
[2019-05-22] MEDS ORDERED: LIDOCAINE 1% INJ-PF (10 MG/ML) 30 ML SDV ONE (23:07)
--- NOTE | 2019-05-22 23:58 | PDOC CONSULTATION ---
Consultation Consult Date: 05/22/19 Attending physician:: TIMOTHY NORRIS Provider Consulted: NESTOR ZACARIAS Consult reason:: pancreatitis History of Present Illness Admission Date/PCP: 05/22/19 18:50 EYAD SMALLS MD History of Present Illness: LAWRENCE GODWIN is a 44 year old female Patient is brought in by paramedics for weakness. Paramedics state they were called by family because patient was weak. They said they found patient with a low blood pressure and confusion. Patient arrives here and still has some confusion. She also complains of feeling very weak. Due to her confusion she is somewhat of a poor historian. She states that she was recently admitted to the ICU and then transferred due to some kidney stones. She also had pancreatitis. She states she is having severe constant abdominal pain now that is in the front. Nothing makes it better or worse. Does not radiate. It is sharp and burning. She denies any problems with stool or urine. No known fevers. No known vomiting. Patient was admitted to the intensive care unit for acute diabetic ketoacidosis with severe pancreatitis and dehydration confusion. A CT scan was obtained and upon its completion Dr. Veronica and nurse practitioner in intensive care and felt that surgical consultation was in order. Patient was initially complaining of a significant abdominal pain which resolved shortly after its initial presentation. Past Medical History Cardiac Medical History: Reports: Hypertension Denies: Congestive Heart Failure, Coronary Artery Disease, Myocardial Infarction, Heart Murmur Pulmonary Medical History: Denies: Asthma, Chronic Obstructive Pulmonary Disease (COPD) Endocrine Medical History: Denies: Diabetes Mellitus Type 2, Hyperthyroidism, Hypothyroidism Musculoskeltal Medical History: Reports: Arthritis - Psoriatic/rheumatoid arthritis Skin Medical History: Reports: Psoriasis Infectious Medical History: Denies: HIV Past Surgical History Past Surgical History: Reports: Other - Bilateral ureteral stent placements Social History Smoking Status: Never Smoker Electronic Cigarette use?: No Frequency of Alcohol Use: Rare Hx Recreational Drug Use: No Drugs: None Hx Prescription Drug Abuse: No - Advance Directive Resuscitation Status: Full Code Family History Family History: Reviewed & Not Pertinent Parental Family History Reviewed: No Children Family History Reviewed: NA Sibling(s) Family History Reviewed.: NA Medication/Allergy Home Medications: Allopurinol [Zyloprim 100 mg Tablet] 100 mg PO DAILY 05/22/19 Allopurinol [Zyloprim 300 mg Tablet] 300 mg PO DAILY 05/22/19 Candesartan/Hydrochlorothiazid [Candesartan-Hctz 32-25 mg Tab] 1 tab PO DAILY 05/22/19 Ciprofloxacin HCl [Cipro 500 mg Tablet] 500 mg PO BID 05/22/19 Gabapentin [Neurontin 300 mg Capsule] 300 mg PO Q8 05/22/19 Hydrocodone/Acetaminophen [[place] 5-325 mg Tablet] 1 tab PO Q6HP PRN 05/22/19 Metoprolol Tartrate [Lopressor 50 mg Tablet] 50 mg PO 12 05/22/19 Ondansetron [Zofran Odt 4 mg Tablet] 4 mg PO Q6HP PRN 05/22/19 Pantoprazole Sodium [Protonix [address] Tablet] 40 mg PO QAM 05/22/19 Pnv 119/Iron Fum/Folic Acid [Se--19 Tablet] 1 tab PO DAILY 05/22/19 Prednisone 10 mg PO .TAPER 05/22/19 Tamsulosin HCl [Flomax 0.4 mg Cap.sr] 0.4 mg PO DAILY 05/22/19 Tizanidine HCl [Zanaflex 4 mg Tablet] 4 mg PO BIDP PRN 05/22/19 Allergies/Adverse Reactions: No Known Allergies Allergy (Unverified 04/24/19 02:03) Review of Systems ROS unobtainable: Due to mental status Physical Exam Vital Signs: Temp Pulse Resp BP Pulse Ox 96.6 F L 110 H 18 108/78 99 05/22/19 22:27 05/22/19 22:27 05/22/19 22:27 05/22/19 22:27 05/22/19 22:27 Intake & Output 05/21/19 05/22/19 05/23/19 06:59 06:59 06:59 Intake Total 2050 Output Total 525 Balance 1525 Weight 97.3 kg General appearance: PRESENT: mild distress, obese Head exam: PRESENT: atraumatic Eye exam: PRESENT: EOMI Ear exam: PRESENT: normal external ear exam Mouth exam: PRESENT: dry mucosa, moist Teeth exam: PRESENT: poor dentation Neck exam: PRESENT: full ROM Respiratory exam: PRESENT: clear to auscultation rose Cardiovascular exam: PRESENT: tachycardia Pulses: PRESENT: normal carotid pulses, normal radial pulses, normal femoral pulses Vascular exam: PRESENT: normal capillary refill Breast: PRESENT: Normal GI/Abdominal exam: PRESENT: other - Diminished soft minimally distended minimally tender to deep palpation in all 4 quadrants there is no peritoneal signs Rectal exam: PRESENT: deferred Gentrourinary exam: PRESENT: indwelling catheter Extremities exam: PRESENT: full ROM Musculoskeletal exam: PRESENT: full ROM Neurological exam: PRESENT: awake, other - She is confused secondary to dehydration and her acidosis Psychiatric exam: PRESENT: anxious Skin exam: PRESENT: dry Results Laboratory Results: 05/22/19 16:40 05/22/19 20:30 05/22/19 05/22/19 05/22/19 16:40 16:40 16:40 WBC 7.3 RBC 4.52 Hgb 9.7 L Hct 31.9 L MCV 71 L MCH 21.5 L MCHC 30.5 L RDW 18.3 H Plt Count 276 Seg Neutrophils % 77.1 VBG pH 7.26 L VBG pCO2 40.2 VBG HCO3 17.7 L VBG Base Excess -8.8 Sodium 130.7 L Potassium 5.8 H Chloride 88 L Carbon Dioxide 16 L Anion Gap 27 H BUN 112 H Creatinine 8.43 H Est GFR ( Amer) 6 L Glucose 993 H* Lactic Acid Calcium 13.9 H* Phosphorus Magnesium Total Bilirubin 0.7 AST 23 Alkaline Phosphatase 95 Total Protein 7.8 Albumin 3.8 Amylase Lipase 3484.7 H Urine Color Urine Appearance Urine pH Ur Specific [place] Urine Protein Urine Glucose (UA) Urine Ketones Urine Blood Urine RBC (Auto) 05/22/19 05/22/19 05/22/19 16:40 18:00 18:51 WBC RBC Hgb Hct MCV MCH MCHC RDW Plt Count Seg Neutrophils % VBG pH VBG pCO2 VBG HCO3 VBG Base Excess Sodium Potassium Chloride Carbon Dioxide Anion Gap BUN Creatinine Est GFR ( Amer) Glucose Lactic Acid 2.8 H 2.3 H Calcium Phosphorus Magnesium Total Bilirubin AST Alkaline Phosphatase Total Protein Albumin Amylase Lipase Urine Color YELLOW Urine Appearance CLOUDY Urine pH 5.0 Ur Specific [place] 1.014 Urine Protein 30 H Urine Glucose (UA) >=500 H Urine Ketones 20 H Urine Blood LARGE H Urine RBC (Auto) >182 05/22/19 05/22/19 20:30 21:43 WBC RBC Hgb Hct MCV MCH MCHC RDW Plt Count Seg Neutrophils % VBG pH VBG pCO2 VBG HCO3 VBG Base Excess Sodium 136.0 L Potassium 4.9 Chloride 98 Carbon Dioxide 16 L Anion Gap 22 H BUN 96 H Creatinine 7.59 H Est GFR ( Amer) 7 L Glucose 762 H* Lactic Acid 3.0 H Calcium 12.4 H* Phosphorus 7.0 H Magnesium 2.8 H Total Bilirubin 0.6 AST 17 Alkaline Phosphatase 89 Total Protein 7.1 Albumin 3.3 L Amylase 121 H Lipase Urine Color Urine Appearance Urine pH Ur Specific [place] Urine Protein Urine Glucose (UA) Urine Ketones Urine Blood Urine RBC (Auto) Impressions: Abdomen/Pelvis CT 05/22/19 16:27 IMPRESSION: There are new innumerable tiny nodules present throughout the mesentery and upper retroperitoneum which involves the left upper quadrant as well as in the midline of the lower abdomen in the mesentery of the small bowel as well as the left pericolic gutter. Bulky percent lymphadenopathy in the infrahilar and lower paraesophageal locations. These findings are concerning for possible neoplastic process. Since the prior examination there has been development of fluid collections near the tail and distal body of the pancreas, 3 collections measure greater than 3.5 cm each. Assessment & Plan - Plan Summary Plan Summary: Patient is a 44-year-old female who was admitted to the ICU emergently from the ER when she presented with severe diabetic ketoacidosis and moderate to severe pancreatitis. Patient has recently been discharged from [facility] after bilateral ureteral stent placements for bilateral ureteral calculi and was admitted there advised him for approximately a week records in the ER still pending. Upon our initial presentation here about a week ago and prior to her transfer to [facility] we did note that she had elevated lipase levels consistent with pancreatitis. Patient now presents with severe diabetic ketoacidosis renal failure and abdominal pain whereupon a CT scan was obtained which showed thickened pancreas with 2 fluid collections in the body and tail the pancreas multiple intraperitoneal nodules consistent with either malignant process versus saponification secondary to the pancreatitis. In addition that she has significant hypercalcemia which may explain her pancreatitis and I am not aware of that had been worked up yet. Recommendations #1 I placed a central line for CVP monitoring patient will require continued fluid resuscitation She will need a work-up for her hypercalcemia and management of her renal failure and diabetes. At this point she does not have an acute abdomen that would require operative exploration. After patient is been rehydrated and her metabolic derangements have been addressed she may need a repeat CT scan to follow these pancreatic fluid collections which are consistent with pseudocyst.
--- NOTE | 2019-05-23 00:01 | Operative Report ---
Nonrecallable Operative Report DATE OF SURGERY: 05/22/19 PREOPERATIVE DIAGNOSIS: Severe diabetic ketoacidosis with pancreatitis POSTOPERATIVE DIAGNOSIS: Severe diabetic ketoacidosis pancreatitis OPERATION: Central line placement SURGEON: NESTOR ZACARIAS ANESTHESIA: Local COMPLICATIONS: None 5 cc INTRAOPERATIVE FINDINGS: See note PROCEDURE: Procedure patient was placed in a Trendelenburg position in the intensive care unit the right chest was prepped and draped in usual sterile fashion. After after appropriate timeout site verification the procedure commenced. Using 1% lidocaine plain the area underneath the right clavicle was anesthetized with a skin wheal. Using a 16-gauge needle attempts at the right subclavian vein were unsuccessful. Therefore the right neck was prepped and draped in usual sterile fashion. Using again 1% lidocaine plain the area along the anterior sternocleidomastoid muscle was anesthetized. Then using a 16-gauge needle the right jugular vein was cannulated. A wire was placed through the needle into the superior vena cava. The needle was removed over the wire. Small sarwat was made in the skin with a 11 blade and the dilator was passed over the wire and dilated the tract. The dilator was removed and a 16 [place] triple- lumen catheter was placed into the superior vena cava through this incision the wire was then removed. The catheter was fixed to the neck with 2-0 silk sutures and a sterile dressing was applied which completed the procedure. The chest x-ray is pending.
[2019-05-23] MEDS: NORMAL SALINE 100 ML with INSULIN REGULAR, HUMAN 100 UNIT IV PRN ×2 (00:11)
[2019-05-23] MEDS: VANCOMYCIN HCL INJ 1000 MG VIAL IV ONE (00:18)
--- NOTE | 2019-05-23 00:21 | RADIOLOGY REPORT (SQ) ---
EXAM DESCRIPTION: XR CHEST 1 VIEW COMPLETED DATE/TME: 05/22/2019 23:27 CLINICAL HISTORY: 44 years, Female, central line placement COMPARISON: 1648 hours NUMBER OF VIEWS: Single TECHNIQUE: 2344 hours, May 22, 2019 LIMITATIONS: None. FINDINGS: Cardiomediastinal silhouette is stable. Lungs are grossly clear. No effusion. No pneumothorax. The new right IJ central venous catheter tip projects over right atrium, satisfactory IMPRESSION: Satisfactory placement of central venous catheter copyright 2011 [employer]- All Rights Reserved
[2019-05-23] MEDS: NORMAL SALINE 1000 ML 1,000 ML IV PRN ×3 (00:24→23:44)
[2019-05-23] MEDS ORDERED: NORMAL SALINE 1000 ML 1,000 ML IV ONE (00:52)
--- NOTE | 2019-05-23 00:59 | CRITICAL CARE ADMISSION REPORT ---
HPI Date:: 05/22/19 Time:: 21:09 Reason for ICU Reason:: Hypotension, pancreatitis, ARF, DKA, hypothermia HPI: Mrs. Hodge is a 44yr old F with PMH significant for sarcoidosis, psoriatic arthritis, RA, CKD who was admitted to the ICU on 04/24/19 with severe sepsis, complicated UTI, pyelonephritis, renal calculi, left ureteral stone, CASSANDRA, hypercalcemia and acute pancreatitis. She was transferred the following day (04/25) to the ICU at [facility] where she had bilateral renal stents placed. Today, she was brought to the ED by EMS for complaints of weakness, hypotension severe abdominal pain and confusion. She was found to have a blood glucose of >900 on her labs with a anion gap of 27, lipase of 3484, potassium of 5.8 and Cr of 8.43. She was hypothermic to 93.4 and hypotensive that had some improvement after 3L IV fluids. Abd/pelvis CT obtained in the ED shows changes when compared to previous admission; new innumerable tiny nodules throughout mesentary and upper retroperitoneum involving the LUQ, midline of lower abdomen and pericolic gutter. Worsening of fluid collection surrounding the pancreas with 3 fluid collections measuring greater than 3.5cm each. While in the ED, pt was given 3L IV fluids, Vancomycin and insulin drip. Pt was accepted to the ICU and will be treated for acute pancreatitis, DKA and CASSANDRA on CKD. On arrival to the ICU, pt was moaning out in pain, repeating "back, abdomen" when asked several different questions regarding her pain and history. When attempting to perfrom a physical assessment, she had acute tenderness with vocalizations to all areas of the abdomen and bilateral flanks. Decision was made to call Dr. Mejias from surgery to discuss concerns with changes noted on CT scan and physical assessment. He arrived at bedside and pt did not have any complaints of have same physical exam presentation with acute pain on palpation of abdomen. Recommendations to continue to monitor and treat acute symptoms; no need for surgical intervention at this time. History obtained from:: previous records and minimal amount of information from patient - Diagnosis/Plan (1) Acute pancreatitis Qualifiers: Pancreatitis type: other Acute pancreatitis complication: uninfected necrosis Qualified Code(s): K85.81 - Other acute pancreatitis with uninfected necrosis (2) Acute renal failure Qualifiers: Acute renal failure type: unspecified Qualified Code(s): N17.9 - Acute kidney failure, unspecified (4) Diabetic ketoacidosis Qualifiers: Diabetes mellitus type: other specified (including ALETHA) Diabetes mellitus complication detail: without coma Qualified Code(s): E13.10 - Other specified diabetes mellitus with ketoacidosis without coma (7) Hypotension Qualifiers: Hypotension type: hypotension due to hypovolemia Qualified Code(s): I95.89 - Other hypotension; E86.1 - Hypovolemia (8) Hypothermia Qualifiers: Encounter type: initial encounter Qualified Code(s): T68.XXXA - Hy pothermia, initial encounter - . Plan Summary: Plan: 1. Respiratory: * no acute distress - continue to closely monitor respiratory status and increase interventions as needed 2. CV: * Maintain continuous cardiac monitoring - currently in sinus tachycardia * Hypotension as low as SBP of 95 since arrival to ICU - continue IVF * hold home antihypertensive medications at this time 3:Neuro: * ?AMS/confused - likely metabolic encephalopathy 2/2 multiple presenting issues - hypotension, DKA, CASSANDRA, hypothermia, additional labs ordered to r/o pathologies * Acute pain - fentnyl Q4hr PRN for treatment of acute pancreatitis 4. Renal/uro: * CASSANDRA on CKD - initial Cr of 8.3 shows improvement after IVF, continue fluids and avoid nephrotoxic agents * recent hx of urosepsis 2/2 pyelonethritis, multiple renal calculi and left ureteral calculi resulting in placement of bilateral renal stents - maintain grigsby, monitor I&O closely * hyperkalemia - trending down with resolution of DKA, continue to monitor 5. GI: * Acute pancreatitis - elevated lipase/amylase with fluid collections noted on CT scan around pancreatic body and tail. Unknown if there is any evidence of necrosis as no contrast was used on CT scan. Unknown what treatment was provided for pancreatitis while at [facility]; awaiting records * NPO at this time 6. Endocrine: * DKA - continue on insulin gtt with Q1h POC and Q4h BMP * hypercalcemia - PTH pending as there is history of elevated Ca on previous admission 7. ID: * Vanco given in ED once - will hold on additional doses with elevated Cr * WBC stable at this time, hypothermia resolving - will continue to monitor for the need for antibiotics, blood and urine cultures pending * Continue to monitor Lactate - likely elevated 2/2 dehydration 8. Heme/Onc: * Heparin for DVT ppx * trend H/H - transfuse for Hgb <7.0 9. MSK/rheum: * no acute concerns at this time * hx of RA and psoriatic arthritis * hx of sarcoid Past Medical History Cardiac Medical History: Reports: Hypertension Denies: Congestive Heart Failure, Coronary Artery Disease, Myocardial Infarction, Heart Murmur Pulmonary Medical History: Denies: Asthma, Chronic Obstructive Pulmonary Disease (COPD) Endocrine Medical History: Denies: Diabetes Mellitus Type 2, Hyperthyroidism, Hypothyroidism Musculoskeltal Medical History: Reports: Arthritis - Psoriatic/rheumatoid arthritis Skin Medical History: Reports: Psoriasis Infectious Medical History: Denies: HIV Social/Family History - Social History Social History Note: Difficult to obtain - pt intermittently answering questions Smoking Status: Never Smoker Frequency of Alcohol Use: Rare Hx Recreational Drug Use: No - Medication/Allergies Home Medications: Allopurinol [Zyloprim 100 mg Tablet] 100 mg PO DAILY 05/22/19 Allopurinol [Zyloprim 300 mg Tablet] 300 mg PO DAILY 05/22/19 Candesartan/Hydrochlorothiazid [Candesartan-Hctz 32-25 mg Tab] 1 tab PO DAILY 05/22/19 Ciprofloxacin HCl [Cipro 500 mg Tablet] 500 mg PO BID 05/22/19 Gabapentin [Neurontin 300 mg Capsule] 300 mg PO Q8 05/22/19 Hydrocodone/Acetaminophen [[place] 5-325 mg Tablet] 1 tab PO Q6HP PRN 05/22/19 Metoprolol Tartrate [Lopressor 50 mg Tablet] 50 mg PO 12 05/22/19 Ondansetron [Zofran Odt 4 mg Tablet] 4 mg PO Q6HP PRN 05/22/19 Pantoprazole Sodium [Protonix [address] Tablet] 40 mg PO QAM 05/22/19 Pnv 119/Iron Fum/Folic Acid [Se--19 Tablet] 1 tab PO DAILY 05/22/19 Prednisone 10 mg PO .TAPER 05/22/19 Tamsulosin HCl [Flomax 0.4 mg Cap.sr] 0.4 mg PO DAILY 05/22/19 Tizanidine HCl [Zanaflex 4 mg Tablet] 4 mg PO BIDP PRN 05/22/19 Allergies/Adverse Reactions: No Known Allergies Allergy (Unverified 04/24/19 02:03) Review of Systems ROS unobtainable: Other - difficult to obtain - pt intermittently answering questions Constitutional: PRESENT: chills, weakness Cardiovascular: ABSENT: chest pain, palpitations Respiratory: ABSENT: cough Gastrointestinal: PRESENT: abdominal pain - acutte diffuse pain Musculoskeletal: PRESENT: back pain - bilateral lower and mid-back Integumentary: PRESENT: wounds - bilateral lower legs Neurological: PRESENT: dizziness, weakness Endocrine: ABSENT: polydipsia, polyphagia, polyuria Physical Exam Vital Signs: Temp Pulse Resp BP Pulse Ox 94.7 F L 19 94/51 L 98 05/22/19 16:14 05/22/19 18:01 05/22/19 18:00 05/22/19 18:01 Intake & Output 05/21/19 05/22/19 05/23/19 06:59 06:59 06:59 Intake Total 2049 Balance 2049 Weight 90.9 kg Weight/Height Weight 90.9 kg Height 5 ft 2 in General appearance: PRESENT: obese, severe distress - with physical assessment Head exam: PRESENT: atraumatic, normocephalic Eye exam: PRESENT: conjunctiva pink, EOMI, PERRLA. ABSENT: nystagmus, scleral icterus Ear exam: PRESENT: normal external ear exam Mouth exam: PRESENT: dry mucosa, neck supple Neck exam: ABSENT: JVD, tracheal deviation Respiratory exam: PRESENT: decreased breath sounds, tachypnea. ABSENT: acc essory muscle use, retraction, wheezes Cardiovascular exam: PRESENT: +S1, +S2, tachycardia Pulses: PRESENT: normal radial pulses, +1 pedal pulses bilateral GI/Abdominal exam: PRESENT: guarding, tenderness Extremities exam: PRESENT: +1 edema Neurological exam: PRESENT: alert, awake, CN II-XII grossly intact, other - intermittently answers questions Psychiatric exam: PRESENT: flat affect Skin exam: PRESENT: other - several small raised lesions to bilateral lower extremities Laboratory/Radiographs Laboratory Results: 05/22/19 16:40 05/22/19 05/22/19 05/22/19 16:40 16:40 16:40 WBC 7.3 RBC 4.52 Hgb 9.7 L Hct 31.9 L MCV 71 L MCH 21.5 L MCHC 30.5 L RDW 18.3 H Plt Count 276 Seg Neutrophils % 77.1 VBG pH 7.26 L VBG pCO2 40.2 VBG HCO3 17.7 L VBG Base Excess -8.8 Sodium 130.7 L Potassium 5.8 H Chloride 88 L Carbon Dioxide 16 L Anion Gap 27 H BUN 112 H Creatinine 8.43 H Est GFR ( Amer) 6 L Glucose 993 H* Lactic Acid Calcium 13.9 H* Total Bilirubin 0.7 AST 23 Alkaline Phosphatase 95 Total Protein 7.8 Albumin 3.8 Lipase 3484.7 H Urine Color Urine Appearance Urine pH Ur Specific [place] Urine Protein Urine Glucose (UA) Urine Ketones Urine Blood Urine RBC (Auto) 05/22/19 05/22/19 05/22/19 16:40 18:00 18:51 WBC RBC Hgb Hct MCV MCH MCHC RDW Plt Count Seg Neutrophils % VBG pH VBG pCO2 VBG HCO3 VBG Base Excess Sodium Potassium Chloride Carbon Dioxide Anion Gap BUN Creatinine Est GFR ( Amer) Glucose Lactic Acid 2.8 H 2.3 H Calcium Total Bilirubin AST Alkaline Phosphatase Total Protein Albumin Lipase Urine Color YELLOW Urine Appearance CLOUDY Urine pH 5.0 Ur Specific [place] 1.014 Urine Protein 30 H Urine Glucose (UA) >=500 H Urine Ketones 20 H Urine Blood LARGE H Urine RBC (Auto) >182 Impressions: Chest X-Ray 05/22/19 16:24 IMPRESSION: NO ACUTE RADIOGRAPHIC FINDING IN THE CHEST. Abdomen/Pelvis CT 05/22/19 16:27 IMPRESSION: There are new innumerable tiny nodules present throughout the mesentery and upper retroperitoneum which involves the left upper quadrant as well as in the midline of the lower abdomen in the mesentery of the small bowel as well as the left pericolic gutter. Bulky percent lymphadenopathy in the infrahilar and lower paraesophageal locations. These findings are concerning for possible neoplastic process. Since the prior examination there has been development of fluid collections near the tail and distal body of the pancreas, 3 collections measure greater than 3.5 cm each. Critical Time Critical Time (minutes): 60 -: The care of a critically ill patient is dynamic. This note represents a static moment in the admission process. Orders and treatments may be given simultaneously and urgently, and time is not labor service representative of the treatment process. This patient requires Critical Care secondary to life threatening organ or limb dysfunction. Without Critical Care services, the patient is at risk for increased mortality and morbidity.
[2019-05-23] MEDS: HEPARIN SOD (PORCINE) 5,000 UNIT/ML 1 ML VIAL SUBCUT SCH ×4 (01:02→21:44)
[2019-05-23 01:21] LABS: ANION GAP 15 (5-19); BLOOD UREA NITROGEN 91 mg/dL (7-20); CARBON DIOXIDE 21 mmol/L (22-30); CHLORIDE 107 mmol/L (98-107); GLUCOSE 332 mg/dL (75-110)
[2019-05-23 01:38] LABS: POTASSIUM 3.7 mmol/L (3.6-5.0)
[2019-05-23 01:41] LABS: CALCIUM 12.6 mg/dL (8.4-10.2)
[2019-05-23] MEDS ORDERED: NOREPINEPHRINE BITARTRATE INJ/PF 4 MG/4 ML SDV IV ONE (01:51)
[2019-05-23] MEDS ORDERED: DEXTROSE 5%-WATER 250 ML with NOREPINEPHRINE BITARTRATE 4 MG IV PRN ×2 (02:04)
[2019-05-23 02:23] LABS: ABSOLUTE BASOPHILS # (AUTO) 0.1 10^3/uL (0.0-0.2); ABSOLUTE EOSINOPHILS # (AUTO) 0.2 10^3/uL (0.0-0.6); ABSOLUTE LYMPHOCYTES (AUTO) 0.4 10^3/uL (0.5-4.7); ABSOLUTE MONOCYTES (AUTO) 0.5 10^3/uL (0.1-1.4); ABSOLUTE NEUT (AUTO) 5.3 10^3/uL (1.7-8.2); EOSINOPHILS % (AUTO) 2.8 % (0-6); HEMATOCRIT 26.6 % (36.0-47.0); HEMOGLOBIN 8.8 g/dL (12.0-15.5); LYMPHOCYTES % (AUTO) 6.1 % (13-45); MEAN CORPUSCULAR HEMOGLOBIN 21.8 pg (27.0-33.4); MEAN CORPUSCULAR HGB CONC 33.1 g/dL (32.0-36.0); MONOCYTES % (AUTO) 7.9 % (3-13); RED BLOOD COUNT 4.04 10^6/uL (3.72-5.28); RED CELL DISTRIBUTION WIDTH 17.5 % (11.5-14.0); SEGMENTED NEUTROPHILS % (AUTO) 82.2 % (42-78); TOTAL CELLS COUNTED % (AUTO) 100 %; WHITE BLOOD COUNT 6.5 10^3/uL (4.0-10.5)
[2019-05-23 02:43] LABS: MEAN CORPUSCULAR VOLUME 66 fl (80-97); PLATELET COUNT 207 10^3/uL (150-450)
[2019-05-23] MEDS ORDERED: DEXTROSE 5%-NORMAL SALINE 1,000 ML IV PRN (03:22)
[2019-05-23 04:15] LABS: ANION GAP 8 (5-19); BLOOD UREA NITROGEN 84 mg/dL (7-20); CALCIUM 11.9 mg/dL (8.4-10.2); CARBON DIOXIDE 23 mmol/L (22-30); CHLORIDE 115 mmol/L (98-107); GLUCOSE 145 mg/dL (75-110); POTASSIUM 3.6 mmol/L (3.6-5.0)
[2019-05-23] MEDS ORDERED: NORMAL SALINE 1000 ML 1,000 ML IV PRN ×2 (04:23→04:30)
[2019-05-23] MEDS: PANTOPRAZOLE SODIUM 40 MG TABLET.DR PO SCH (05:05)
--- NOTE | 2019-05-23 08:38 | RADIOLOGY REPORT (SQ) ---
EXAM DESCRIPTION: CHEST SINGLE VIEW COMPLETED DATE/TIME: 05/23/2019 8:07 am REASON FOR STUDY: tachypnea COMPARISON: [id number]. EXAM PARAMETERS: NUMBER OF VIEWS: One view. TECHNIQUE: Single frontal radiographic view of the chest acquired. RADIATION DOSE: NA LIMITATIONS: None. FINDINGS: LUNGS AND PLEURA: No opacities, masses or pneumothorax. No pleural effusion. MEDIASTINUM AND HILAR STRUCTURES: No masses. Contour normal. HEART AND VASCULAR STRUCTURES: Heart normal in size. Normal vasculature. BONES: No acute findings. HARDWARE: Central venous catheter. OTHER: No other significant finding. IMPRESSION: NO ACUTE RADIOGRAPHIC FINDING IN THE CHEST. TECHNICAL DOCUMENTATION: JOB ID: [id number] 2010 [employer]- All Rights Reserved Reading location - IP/workstation name: [email or web address]
[2019-05-23 09:18] LABS: ANION GAP 12 (5-19); BLOOD UREA NITROGEN 70 mg/dL (7-20); CALCIUM 11.3 mg/dL (8.4-10.2); CARBON DIOXIDE 18 mmol/L (22-30); CHLORIDE 115 mmol/L (98-107); GLUCOSE 207 mg/dL (75-110)
[2019-05-23 09:18] LABS: ABSOLUTE BASOPHILS # (AUTO) 0.1 10^3/uL (0.0-0.2); ABSOLUTE EOSINOPHILS # (AUTO) 0.2 10^3/uL (0.0-0.6); ABSOLUTE LYMPHOCYTES (AUTO) 0.5 10^3/uL (0.5-4.7); ABSOLUTE MONOCYTES (AUTO) 0.8 10^3/uL (0.1-1.4); ABSOLUTE NEUT (AUTO) 5.2 10^3/uL (1.7-8.2); BASOPHILS % (AUTO) 1.1 % (0-2); EOSINOPHILS % (AUTO) 2.8 % (0-6); HEMATOCRIT 27.1 % (36.0-47.0); HEMOGLOBIN 8.7 g/dL (12.0-15.5); MEAN CORPUSCULAR HEMOGLOBIN 21.9 pg (27.0-33.4); MEAN CORPUSCULAR HGB CONC 32.2 g/dL (32.0-36.0); MEAN CORPUSCULAR VOLUME 68 fl (80-97); MONOCYTES % (AUTO) 11.2 % (3-13); PLATELET COUNT 212 10^3/uL (150-450); RED CELL DISTRIBUTION WIDTH 17.5 % (11.5-14.0); SEGMENTED NEUTROPHILS % (AUTO) 76.9 % (42-78); TOTAL CELLS COUNTED % (AUTO) 100 %; WHITE BLOOD COUNT 6.8 10^3/uL (4.0-10.5)
--- NOTE | 2019-05-23 09:19 | PDOC CRITICAL CARE PROG REPORT ---
General Date:: 05/23/19 ICU Day:: 1 Hospital Day:: 1 Resuscitation Status: Full Code Events in the past 12 to 24 Hours:: Pressure better with IVF, decreased rate. Review of systems relevant to events:: CV, Neurological, GI and endocrine Reason for ICU Addmission:: Hypotension, pancreatitis, ARF, DKA, hypothermia - Medications: Medications reviewed and adjusted accordingly: Yes Vasopressors:: Levophed off. Sedation:: None Physical Exam Vital Signs: Temp Pulse Resp BP Pulse Ox 98.6 F 108 H 19 117/56 L 97 05/23/19 06:20 05/22/19 23:30 05/23/19 06:20 05/23/19 06:20 05/23/19 06:20 Intake & Output 05/22/19 05/23/19 05/24/19 06:59 06:59 06:59 Intake Total 5935 Output Total 1925 Balance 4010 Weight 97.3 kg Weight/Height Weight 97.3 kg Height 5 ft 2 in General appearance: PRESENT: no acute distress, well-developed, well-nourished Head exam: PRESENT: atraumatic, normocephalic Eye exam: PRESENT: conjunctiva pink, EOMI, PERRLA. ABSENT: scleral icterus Ear exam: PRESENT: normal external ear exam Mouth exam: PRESENT: dry mucosa Respiratory exam: PRESENT: clear to auscultation orse. ABSENT: rales, rhonchi, wheezes Cardiovascular exam: PRESENT: tachycardia Vascular exam: PRESENT: normal capillary refill GI/Abdominal exam: PRESENT: normal bowel sounds, soft, tenderness - Some diffuse abdominal pain.. ABSENT: distended, guarding, mass, organolmegaly, rebound Rectal exam: PRESENT: deferred Gentrourinary exam: PRESENT: indwelling catheter Extremities exam: PRESENT: pedal edema Musculoskeletal exam: PRESENT: normal inspection Neurological exam: PRESENT: alert, awake, oriented to person, oriented to place, oriented to time, oriented to situation, CN II-XII grossly intact. ABSENT: motor sensory deficit Skin exam: PRESENT: dry, intact, warm. ABSENT: cyanosis, rash Laboratory/Radiographs Laboratory Results: 05/22/19 05/22/19 05/22/19 16:40 16:40 16:40 WBC 7.3 RBC 4.52 Hgb 9.7 L Hct 31.9 L MCV 71 L MCH 21.5 L MCHC 30.5 L RDW 18.3 H Plt Count 276 Seg Neutrophils % 77.1 VBG pH 7.26 L VBG pCO2 40.2 VBG HCO3 17.7 L VBG Base Excess -8.8 Sodium 130.7 L Potassium 5.8 H Chloride 88 L Carbon Dioxide 16 L Anion Gap 27 H BUN 112 H Creatinine 8.43 H Est GFR ( Amer) 6 L Glucose 993 H* Lactic Acid Calcium 13.9 H* Phosphorus Magnesium Total Bilirubin 0.7 AST 23 Alkaline Phosphatase 95 Ammonia Total Protein 7.8 Albumin 3.8 Amylase Lipase 3484.7 H TSH PTH Intact Urine Color Urine Appearance Urine pH Ur Specific [place] Urine Protein Urine Glucose (UA) Urine Ketones Urine Blood Urine RBC (Auto) 05/22/19 05/22/19 05/22/19 16:40 18:00 18:51 WBC RBC Hgb Hct MCV MCH MCHC RDW Plt Count Seg Neutrophils % VBG pH VBG pCO2 VBG HCO3 VBG Base Excess Sodium Potassium Chloride Carbon Dioxide Anion Gap BUN Creatinine Est GFR ( Amer) Glucose Lactic Acid 2.8 H 2.3 H Calcium Phosphorus Magnesium Total Bilirubin AST Alkaline Phosphatase Ammonia Total Protein Albumin Amylase Lipase TSH PTH Intact Urine Color YELLOW Urine Appearance CLOUDY Urine pH 5.0 Ur Specific [place] 1.014 Urine Protein 30 H Urine Glucose (UA) >=500 H Urine Ketones 20 H Urine Blood LARGE H Urine RBC (Auto) >182 05/22/19 05/22/19 05/23/19 20:30 21:43 00:47 WBC RBC Hgb Hct MCV MCH MCHC RDW Plt Count Seg Neutrophils % VBG pH VBG pCO2 VBG HCO3 VBG Base Excess Sodium 136.0 L 143.0 Potassium 4.9 3.7 D Chloride 98 107 Carbon Dioxide 16 L 21 L Anion Gap 22 H 15 BUN 96 H 91 H Creatinine 7.59 H 6.73 H Est GFR ( Amer) 7 L 8 L Glucose 762 H* 332 H Lactic Acid 3.0 H Calcium 12.4 H* 12.6 H* Phosphorus 7.0 H Magnesium 2.8 H Total Bilirubin 0.6 AST 17 Alkaline Phosphatase 89 Ammonia Total Protein 7.1 Albumin 3.3 L Amylase 121 H Lipase TSH PTH Intact Urine Color Urine Appearance Urine pH Ur Specific [place] Urine Protein Urine Glucose (UA) Urine Ketones Urine Blood Urine RBC (Auto) 05/23/19 05/23/19 05/23/19 00:47 00:47 01:08 WBC Cancelled RBC Cancelled Hgb Cancelled Hct Cancelled MCV Cancelled MCH Cancelled MCHC Cancelled RDW Cancelled Plt Count Cancelled Seg Neutrophils % Cancelled VBG pH VBG pCO2 VBG HCO3 VBG Base Excess Sodium Potassium Chloride Carbon Dioxide Anion Gap BUN Creatinine Est GFR ( Amer) Glucose Lactic Acid Calcium Phosphorus Magnesium Total Bilirubin AST Alkaline Phosphatase Ammonia Total Protein Albumin Amylase Lipase TSH 1.22 PTH Intact 18.4 Urine Color Urine Appearance Urine pH Ur Specific [place] Urine Protein Urine Glucose (UA) Urine Ketones Urine Blood Urine RBC (Auto) 05/23/19 05/23/19 05/23/19 01:08 01:58 03:34 WBC 6.5 RBC 4.04 Hgb 8.8 L Hct 26.6 L MCV 66 L D MCH 21.8 L MCHC 33.1 RDW 17.5 H Plt Count 207 Seg Neutrophils % 82.2 H VBG pH VBG pCO2 VBG HCO3 VBG Base Excess Sodium 145.8 H Potassium 3.6 Chloride 115 H Carbon Dioxide 23 Anion Gap 8 BUN 84 H Creatinine 6.02 H Est GFR ( Amer) 9 L Glucose 145 H Lactic Acid Calcium 11.9 H Phosphorus Magnesium Total Bilirubin AST Alkaline Phosphatase Ammonia < 8.7 L Total Protein Albumin Amylase Lipase TSH PTH Intact Urine Color Urine Appearance Urine pH Ur Specific [place] Urine Protein Urine Glucose (UA) Urine Ketones Urine Blood Urine RBC (Auto) Impressions: Abdomen/Pelvis CT 05/22/19 16:27 IMPRESSION: There are new innumerable tiny nodules present throughout the mesentery and upper retroperitoneum which involves the left upper quadrant as well as in the midline of the lower abdomen in the mesentery of the small bowel as well as the left pericolic gutter. Bulky percent lymphadenopathy in the infra hilar and lower paraesophageal locations. These findings are concerning for possible neoplastic process. Since the prior examination there has been development of fluid collections near the tail and distal body of the pancreas, 3 collections measure greater than 3.5 cm each. Chest X-Ray 05/23/19 06:08 IMPRESSION: NO ACUTE RADIOGRAPHIC FINDING IN THE CHEST. EKG: ST, prolonged QT All labs, radiographs, diagnostic studies and EKGs were personally reviewed: Yes In addition, reports of radiographic and diagnostic studies were read: Yes Assessment and Plan - Diagnosis (1) Acute pancreatitis Qualifiers: Pancreatitis type: unspecified pancreatitis type Acute pancreatitis complication: uninfected necrosis Qualified Code(s): K85.91 - Acute pancreatit is with uninfected necrosis, unspecified Is this a current diagnosis for this admission?: Yes Plan: Repeat lipase pending. Psuedocysts forming. Trial of TPN warranted. (2) Dehydration Is this a current diagnosis for this admission?: Yes Plan: Improved. (3) Acute kidney injury superimposed on CKD Is this a current diagnosis for this admission?: Yes Plan: Cr is still 6. Dr. Mc consulted. (4) Renal calculus, bilateral Is this a current diagnosis for this admission?: Yes Plan: Stents recently placed. Will have pyuria and bacteriuria. Await cultures. Plan Summary: Slow IVF, TPN, bowel rest. Dr. Mc to see. Critical Time Critical Time (minutes): 35 Level of Care: ICU Anticipated discharge: Home Within: Other - Too soon to say. -: 1. The care of a critical patient is a dynamic process. This note is a inside sales account representative synopsis but static in nature. The timeframe for treatments given in order is not necessarily the actual time these treatments may have been done. 2. This patient requires critical care secondary to ongoing requirements for therapy not offered or safe outside the critical care environment. Transfer to a lower level of care will result in altered life or limb morbidity and mortality. 3. Multidisciplinary rounds completed. 4. ABCDE bundle addressed.
[2019-05-23] MEDS ORDERED: TIZANIDINE HCL 4 MG TABLET PO PRN (09:27)
[2019-05-23] MEDS ORDERED: DEXTROSE 40% GEL 15 GM TUBE PO PRN ×4 (09:29→10:30)
[2019-05-23] MEDS ORDERED: DEXTROSE 50%-WATER 25 GM/50 ML DISP.SYRIN IV PRN ×4 (09:29→10:30)
[2019-05-23] MEDS ORDERED: GLUCAGON,HUMAN RECOMB 1 MG INJ IM PRN ×2 (09:29→10:30)
[2019-05-23] MEDS ORDERED: PANTOPRAZOLE SODIUM 40 MG TABLET.DR PO SCH (09:30)
[2019-05-23] MEDS ORDERED: FOLIC ACID PO SCH (10:00)
[2019-05-23] MEDS ORDERED: IRON FUM PO SCH (10:00)
[2019-05-23] MEDS ORDERED: CIPROFLOXACIN HCL 500 MG TABLET PO SCH (10:00)
[2019-05-23] MEDS ORDERED: PNV PO SCH (10:00)
[2019-05-23] MEDS: TAMSULOSIN HCL 0.4 MG CAP.SR.24H PO SCH (10:58)
--- NOTE | 2019-05-23 11:00 | PDOC CONSULTATION ---
Consultation Consult Date: 05/23/19 Provider Consulted: SAUL YUSUF Consult reason:: CASSANDRA/CKD History of Present Illness Admission Date/PCP: 05/22/19 18:50 EYAD POLLACK MD History of Present Illness: LAWRENCE GODWIN is a 44 year old -[place] female with history of Psoriatec arthritis, rheumatoid arthritis followed by Dr. Caballero, suspected sarcoidosis following up with clerk general office Dr. Caballero, nephrolithiasis status post bilateral renal stent placement recently, hypertension and possible chronic kidney disease who was brought into the emergency room via EMS yesterday because of severe abdominal pain, weakness, and confusion. Records indicated that the patient was admitted here at [facility], intensive care unit on April 24, 2019 with severe sepsis, complicated urinary tract infection, pyelonephritis, nephrolithiasis, left ureteral stone, acute kidney injury, hypercalcemia and acute pancreatitis which led to subsequent transfer to [facility] on April 25. Records from [facility] states that the patient was found to have pulmonary hypertension with abnormal chest CT and pancreatic necrosis. On April 25, 2019 she had had bilateral ureteral renal stents placed and was subsequently discharged home. The patient is somnolent and somewhat slow to respond to questions but otherwise appropriate and answering questions. Patient said that yesterday her cousin called the EMS because of above symptoms. Initial evaluation in the emergency room revealed a blood glucose of 993, bicarbonate of 16 with anion gap of 27, potassium of 5.8, sodium of 130.7, BUN of 112, creatinine 8.43, lipase of 3484.7 and lactic acid of 2.8. Patient was hypotensive with lowest blood pressure of 73/41. She was also hypothermic with temperature of 94.7. Abdominal CT scan showed new innumerable tiny nodules throughout the mesentery and in the upper retroperitoneum, worsening fluid collection around the pancreas with free fluid collections measuring greater than 3.5 cm with possibility of pseudocyst. Patient was evaluated yesterday by surgery, Dr. Mejias who did not recommend any surgical intervention. Patient was started on fluid resuscitation and was given at least 3 L of IV fluids initially in the emergency room which was continued here in the ICU. She was on vasopressor initially but was discontinued. Patient also received a dose of vancomycin and cefepime. Diabetic ketoacidosis, and hypotension. Today when I spoke to the patient she said she has this severe abdominal pain but denies any nausea nor vomiting at home. She said she has some fever but no chills. For the last few days that she was having the symptoms she has no oral solid nor fluid intake at all. She reports that she feels weird when she urinates but denies any gross hematuria. She has some flank pains. She reports some constipation. She denies any real history of diabetes mellitus but said that she was given prednisone invited due to her arthritis flare and was told t hat her blood sugar was elevated. Patient said that in January 2019 she was told by her primary care provider that she has some blood in the urine. She also had some blood work which she was told she has abnormal kidney function and was supposed to be referred to a atm servicer but has just not gotten to it until this time until she gets sick. She denied any history of NSAID use no history of hepatitis. She denies any family history of kidney disease. Since admission she has made about 1925 mL of urine output. She is positive at least 4 L for the past 24 hours since admission. On April 24 her creatinine went from 6.54-4.84 prior to transfer to [facility]. Upon discharge from [facility] on April 30, 2019 the patient had a BUN of 13, creatinine of 1.71. Today the patient has a BUN of 70, creatinine of 4.91, EGFR of 12 and bicarbonate of 18 from 16. Her potassium is now normal at 4.0. Her blood sugars are also improving. She is being given IV fluids at 200 mL an hour. She is also going to be given ciprofloxacin. Her blood cultures and urine cultures are still pending. Past Medical History Endocrine Medical History: Reports: Other - Steroid-induced hyperglycemia Renal/ Medical History: Reports: Nephrolithiasis, Other - Suspected history of chronic kidney disease with unknown baseline Musculoskeltal Medical History: Reports: Arthritis - Psoriatic/rheumatoid arthritis Skin Medical History: Reports: Psoriasis Past Surgical History Past Surgical History: Reports: Other - Bilateral ureteral stent placements Social History Information Source: Patient Lives with: Alone Smoking Status: Never Smoker Electronic Cigarette use?: No Frequency of Alcohol Use: Rare Hx Recreational Drug Use: No Drugs: None Hx Prescription Drug Abuse: No - Advance Directive Resuscitation Status: Full Code Family History Family History: No history of kidney disease in the family. Parental Family History Reviewed: Yes Children Family History Reviewed: Unknown Sibling(s) Family History Reviewed.: Yes Medication/Allergy Home Medications: Allopurinol [Zyloprim 100 mg Tablet] 100 mg PO DAILY 05/22/19 Allopurinol [Zyloprim 300 mg Tablet] 300 mg PO DAILY 05/22/19 Candesartan/Hydrochlorothiazid [Candesartan-Hctz 32-25 mg Tab] 1 tab PO DAILY 05/22/19 Ciprofloxacin HCl [Cipro 500 mg Tablet] 500 mg PO BID 05/22/19 Gabapentin [Neurontin 300 mg Capsule] 300 mg PO Q8 05/22/19 Hydrocodone/Acetaminophen [[place] 5-325 mg Tablet] 1 tab PO Q6HP PRN 05/22/19 Metoprolol Tartrate [Lopressor 50 mg Tablet] 50 mg PO 12 05/22/19 Ondansetron [Zofran Odt 4 mg Tablet] 4 mg PO Q6HP PRN 05/22/19 Pantoprazole Sodium [Protonix [address] Tablet] 40 mg PO QAM 05/22/19 Pnv 119/Iron Fum/Folic Acid [Se-Cinthya-19 Tablet] 1 tab PO DAILY 05/22/19 Prednisone 10 mg PO .TAPER 05/22/19 Tamsulosin HCl [Flomax 0.4 mg Cap.sr] 0.4 mg PO DAILY 05/22/19 Tizanidine HCl [Zanaflex 4 mg Tablet] 4 mg PO BIDP PRN 05/22/19 Allergies/Adverse Reactions: No Known Allergies Allergy (Unverified 04/24/19 02:03) Review of Systems All systems: reviewed and no additional remarkable complaints except as stated Review of Systems: Constitutional: ABSENT: chills, fatigue, fever(s), headache(s), weight gain, weight loss Eyes: ABSENT: visual disturbances Ears: ABSENT: hearing changes Cardiovascular: ABSENT: chest pain, dyspnea on exertion, edema, orthropnea, palpitations Respiratory: ABSENT: cough, dyspnea, hemoptysis Gastrointestinal: ABSENT: Constipation, diarrhea, hematemesis, hematochezia, nausea, vomiting; reports abdominal pain Genitourinary: ABSENT: dysuria, hematuria Musculoskeletal: ABSENT: joint swelling Integumentary: ABSENT: rash, wounds Neurological: ABSENT: abnormal gait, abnormal speech, dizziness, focal weakness, numbness, syncope; patient had confusion and admission as well as generalized weakness. Psychiatric: ABSENT: anxiety, depression Endocrine: ABSENT: cold intolerance, heat intolerance, polydipsia, polyuria Hematologic/Lymphatic: ABSENT: easy bleeding, easy bruising, lymphadenopathy Physical Exam Vital Signs: Temp Pulse Resp BP Pulse Ox 98.4 F 122 H 34 H 118/67 100 05/23/19 08:00 05/23/19 09:20 05/23/19 08:00 05/23/19 08:00 05/23/19 08:00 Intake & Output 05/22/19 05/23/19 05/24/19 06:59 06:59 06:59 Intake Total 5935 Output Total 1925 Balance 4010 Weight 97.3 kg Exam: General appearance: No acute distress, cooperative, well-developed, well- nourished, answering questions but appears to be somnolent and slow to respond Head exam: PRESENT: atraumatic, normocephalic Eye exam: PRESENT: Conjunctiva slightly pale, EOMI, PERRLA. ABSENT: conjunctival injection, scleral icterus Mouth exam: PRESENT: moist, neck supple, tongue midline Neck exam: PRESENT: full ROM. ABSENT: carotid bruit, JVD, lymphadenopathy, thyromegaly Respiratory exam: PRESENT: clear to auscultation bilaterally. ABSENT: rales, rhonchi, stridor, wheezes Cardiovascular exam: PRESENT: RRR, +S1, +S2. ABSENT: systolic murmur Pulses: PRESENT: normal radial pulses, normal dorsalis pedis pulses GI/Abdominal exam: PRESENT: normal bowel sounds, soft. ABSENT: guarding, mass, tenderness Rectal exam: Deferred Extremities exam: PRESENT: full ROM. ABSENT: calf tenderness, pedal edema Musculoskeletal: PRESENT: full ROM. ABSENT: deformity Neurological exam: PRESENT: alert, Awake, Oriented to person, Oriented to place, Oriented to time, reflexes normal, CN II-XII grossly intact. ABSENT: motor sensory deficit Psychiatric exam: PRESENT: appropriate affect, normal mood. ABSENT: homicidal ideation, suicidal ideation Skin exam: PRESENT: intact, dry, warm. Positive skin lesions on lower extremities consistent with previous Psoriatec active lesions. ABSENT: rash Results Laboratory Results: 05/23/19 08:35 05/22/19 05/22/19 05/22/19 16:40 16:40 16:40 WBC 7.3 RBC 4.52 Hgb 9.7 L Hct 31.9 L MCV 71 L MCH 21.5 L MCHC 30.5 L RDW 18.3 H Plt Count 276 Seg Neutrophils % 77.1 VBG pH 7.26 L VBG pCO2 40.2 VBG HCO3 17.7 L VBG Base Excess -8.8 Sodium 130.7 L Potassium 5.8 H Chloride 88 L Carbon Dioxide 16 L Anion Gap 27 H BUN 112 H Creatinine 8.43 H Est GFR ( Amer) 6 L Glucose 993 H* Lactic Acid Calcium 13.9 H* Phosphorus Magnesium Total Bilirubin 0.7 AST 23 Alkaline Phosphatase 95 Ammonia Total Protein 7.8 Albumin 3.8 Amylase Lipase 3484.7 H TSH PTH Intact Urine Color Urine Appearance Urine pH Ur Specific [place] Urine Protein Urine Glucose (UA) Urine Ketones Urine Blood Urine RBC (Auto) 05/22/19 05/22/19 05/22/19 16:40 18:00 18:51 WBC RBC Hgb Hct MCV MCH MCHC RDW Plt Count Seg Neutrophils % VBG pH VBG pCO2 VBG HCO3 VBG Base Excess Sodium Potassium Chloride Carbon Dioxide Anion Gap BUN Creatinine Est GFR ( Amer) Glucose Lactic Acid 2.8 H 2.3 H Calcium Phosphorus Magnesium Total Bilirubin AST Alkaline Phosphatase Ammonia Total Protein Albumin Amylase Lipase TSH PTH Intact Urine Color YELLOW Urine Appearance CLOUDY Urine pH 5.0 Ur Specific [place] 1.014 Urine Protein 30 H Urine Glucose (UA) >=500 H Urine Ketones 20 H Urine Blood LARGE H Urine RBC (Auto) >182 05/22/19 05/22/19 05/23/19 20:30 21:43 00:47 WBC RBC Hgb Hct MCV MCH MCHC RDW Plt Count Seg Neutrophils % VBG pH VBG pCO2 VBG HCO3 VBG Base Excess Sodium 136.0 L 143.0 Potassium 4.9 3.7 D Chloride 98 107 Carbon Dioxide 16 L 21 L Anion Gap 22 H 15 BUN 96 H 91 H Creatinine 7.59 H 6.73 H Est GFR ( Amer) 7 L 8 L Glucose 762 H* 332 H Lactic Acid 3.0 H Calcium 12.4 H* 12.6 H* Phosphorus 7.0 H Magnesium 2.8 H Total Bilirubin 0.6 AST 17 Alkaline Phosphatase 89 Ammonia Total Protein 7.1 Albumin 3.3 L Amylase 121 H Lipase TSH PTH Intact Urine Color Urine Appearance Urine pH Ur Specific [place] Urine Protein Urine Glucose (UA) Urine Ketones Urine Blood Urine RBC (Auto) 05/23/19 05/23/19 05/23/19 00:47 00:47 01:08 WBC Cancelled RBC Cancelled Hgb Cancelled Hct Cancelled MCV Cancelled MCH Cancelled MCHC Cancelled RDW Cancelled Plt Count Cancelled Seg Neutrophils % Cancelled VBG pH VBG pCO2 VBG HCO3 VBG Base Excess Sodium Potassium Chloride Carbon Dioxide Anion Gap BUN Creatinine Est GFR ( Amer) Glucose Lactic Acid Calcium Phosphorus Magnesium Total Bilirubin AST Alkaline Phosphatase Ammonia Total Protein Albumin Amylase Lipase TSH 1.22 PTH Intact 18.4 Urine Color Urine Appearance Urine pH Ur Specific [place] Urine Protein Urine Glucose (UA) Urine Ketones Urine Blood Urine RBC (Auto) 05/23/19 05/23/19 05/23/19 01:08 01:58 03:34 WBC 6.5 RBC 4.04 Hgb 8.8 L Hct 26.6 L MCV 66 L D MCH 21.8 L MCHC 33.1 RDW 17.5 H Plt Count 207 Seg Neutrophils % 82.2 H VBG pH VBG pCO2 VBG HCO3 VBG Base Excess Sodium 145.8 H Potassium 3.6 Chloride 115 H Carbon Dioxide 23 Anion Gap 8 BUN 84 H Creatinine 6.02 H Est GFR ( Amer) 9 L Glucose 145 H Lactic Acid Calcium 11.9 H Phosphorus Magnesium Total Bilirubin AST Alkaline Phosphatase Ammonia < 8.7 L Total Protein Albumin Amylase Lipase TSH PTH Intact Urine Color Urine Appearance Urine pH Ur Specific [place] Urine Protein Urine Glucose (UA) Urine Ketones Urine Blood Urine RBC (Auto) 05/23/19 05/23/19 08:35 08:35 WBC RBC Hgb Hct MCV MCH MCHC RDW Plt Count Seg Neutrophils % VBG pH VBG pCO2 VBG HCO3 VBG Base Excess Sodium 145.0 Potassium 4.0 Chloride 115 H Carbon Dioxide 18 L Anion Gap 12 BUN 70 H Creatinine 4.91 H Est GFR ( Amer) 12 L Glucose 207 H Lactic Acid Calcium 11.3 H Phosphorus Magnesium Total Bilirubin AST Alkaline Phosphatase Ammonia Total Protein Albumin Amylase Lipase 1975.8 H TSH PTH Intact Urine Color Urine Appearance Urine pH Ur Specific [place] Urine Protein Urine Glucose (UA) Urine Ketones Urine Blood Urine RBC (Auto) Impressions: Abdomen/Pelvis CT 05/22/19 16:27 IMPRESSION: There are new innumerable tiny nodules present throughout the mesentery and upper retroperitoneum which involves the left upper quadrant as well as in the midline of the lower abdomen in the mesentery of the small bowel as well as the left pericolic gutter. Bulky percent lymphadenopathy in the infrahilar and lower paraesophageal locations. These findings are concerning for possible neoplastic process. Since the prior examination there has been development of fluid collections near the tail and distal body of the pancreas, 3 collections measure greater than 3.5 cm each. Chest X-Ray 05/23/19 06:08 IMPRESSION: NO ACUTE RADIOGRAPHIC FINDING IN THE CHEST. Assessment & Plan - Diagnosis (1) Acute kidney injury superimposed on CKD Is this a current diagnosis for this admission?: Yes Plan: Patient is currently nonoliguric. This is most likely secondary to severe dehydration with hypotension causing initial acute severe prerenal azotemia and possibly progressing to acute tubular necrosis. Patient's kidney function is currently improving with aggressive IV fluid resuscitation. She does not need any acute renal replacement therapy. Continue current management. Continue to monitor kidney function and electrolytes. We will also get records from andrey miramontes's primary care provider Dr. Pollack to know what her baseline kidney function is before getting sick last month. (2) Acute pancreatitis Qualifiers: Pancreatitis type: unspecified pancreatitis type Acute pancreatitis complication: uninfected necrosis Qualified Code(s): K85.91 - Acute pancreatitis with uninfected necrosis, unspecified Is this a current diagnosis for this admission?: Yes Plan: With possible associated pseudocyst formations. Patient is currently being given IV fluid resuscitation. Management per Dr. Bryan, agriculture mechanic. (3) Diabetic ketoacidosis Qualifiers: Diabetes mellitus type: other specified (including ALETHA) Diabetes mellitus complication detail: without coma Qualified Code(s): E13.10 - Other specified diabetes mellitus with ketoacidosis without coma Is this a current diagnosis for this admission?: Yes Plan: This is a result of severe acute pancreatitis as above. With current management and IV fluid resuscitation everything seems to be improving. Defer to Dr. Bryan. (4) Dehydration Is this a current diagnosis for this admission?: Yes Plan: Currently improving with aggressive fluid resuscitation. (5) Hypercalcemia Is this a current diagnosis for this admission?: Yes Plan: I think part of this if not all of that are most likely secondary to severe dehydration. Work-up is probably warranted when the patient is already in steady state. (6) Renal calculus, bilateral Is this a current diagnosis for this admission?: Yes Plan: Status post bilateral ureteral stent placement. With this we can expect gross or microscopic hematuria until the stents are in place. Patient also has some leukocytes in the urine but urine culture still pending. - Notes Notes: Thank you very much for this consultation. Discussed the case with Dr. Bryan, the agriculture mechanic. - Time Time Spent: Greater than 70 Minutes
[2019-05-23] MEDS: PRENATAL VITAMIN W DHA CAPSULE PO SCH (12:34)
[2019-05-23] MEDS: METOPROLOL TARTRATE 50 MG TABLET PO SCH (12:34)
[2019-05-23] MEDS: INSULIN REG, HUMAN 100 UNIT/ML 3 ML VIAL (PYX) SUBCUT SCH ×3 (12:35→23:36)
[2019-05-23 12:47] LABS: ANION GAP 16 (5-19); BLOOD UREA NITROGEN 64 mg/dL (7-20); CALCIUM 11.1 mg/dL (8.4-10.2); CARBON DIOXIDE 16 mmol/L (22-30); CHLORIDE 114 mmol/L (98-107); GLUCOSE 332 mg/dL (75-110); POTASSIUM 4.2 mmol/L (3.6-5.0)
--- NOTE | 2019-05-23 13:54 | PDOC PROGRESS REPORT ---
Subjective Progress Note for:: 05/23/19 Subjective:: Feels a lot better. Abdominal pains her getting better. Patient is more alert and oriented this morning Reason For Visit: ELEVATED BG, HYPOTHERMIA, ARF Physical Exam Vital Signs: Temp Pulse Resp BP Pulse Ox 98.4 F 114 H 35 H 104/84 100 05/23/19 12:00 05/23/19 12:00 05/23/19 12:00 05/23/19 12:00 05/23/19 12:00 Intake & Output 05/22/19 05/23/19 05/24/19 06:59 06:59 06:59 Intake Total 5935 Output Total 1925 655 Balance 4010 -655 Weight 97.3 kg 97.3 kg Exam: Abdomen is soft with minimal diffuse tenderness Results Laboratory Results: 05/23/19 09:02 05/23/19 11:50 05/22/19 05/22/19 05/22/19 16:40 16:40 16:40 WBC 7.3 RBC 4.52 Hgb 9.7 L Hct 31.9 L MCV 71 L MCH 21.5 L MCHC 30.5 L RDW 18.3 H Plt Count 276 Seg Neutrophils % 77.1 VBG pH 7.26 L VBG pCO2 40.2 VBG HCO3 17.7 L VBG Base Excess -8.8 Sodium 130.7 L Potassium 5.8 H Chloride 88 L Carbon Dioxide 16 L Anion Gap 27 H BUN 112 H Creatinine 8.43 H Est GFR ( Amer) 6 L Glucose 993 H* Lactic Acid Calcium 13.9 H* Phosphorus Magnesium Total Bilirubin 0.7 AST 23 Alkaline Phosphatase 95 Ammonia Total Protein 7.8 Albumin 3.8 Amylase Lipase 3484.7 H TSH PTH Intact Urine Color Urine Appearance Urine pH Ur Specific [place] Urine Protein Urine Glucose (UA) Urine Ketones Urine Blood Urine RBC (Auto) 05/22/19 05/22/19 05/22/19 16:40 18:00 18:51 WBC RBC Hgb Hct MCV MCH MCHC RDW Plt Count Seg Neutrophils % VBG pH VBG pCO2 VBG HCO3 VBG Base Excess Sodium Potassium Chloride Carbon Dioxide Anion Gap BUN Creatinine Est GFR ( Amer) Glucose Lactic Acid 2.8 H 2.3 H Calcium Phosphorus Magnesium Total Bilirubin AST Alkaline Phosphatase Ammonia Total Protein Albumin Amylase Lipase TSH PTH Intact Urine Color YELLOW Urine Appearance CLOUDY Urine pH 5.0 Ur Specific [place] 1.014 Urine Protein 30 H Urine Glucose (UA) >=500 H Urine Ketones 20 H Urine Blood LARGE H Urine RBC (Auto) >182 05/22/19 05/22/19 05/23/19 20:30 21:43 00:47 WBC RBC Hgb Hct MCV MCH MCHC RDW Plt Count Seg Neutrophils % VBG pH VBG pCO2 VBG HCO3 VBG Base Excess Sodium 136.0 L 143.0 Potassium 4.9 3.7 D Chloride 98 107 Carbon Dioxide 16 L 21 L Anion Gap 22 H 15 BUN 96 H 91 H Creatinine 7.59 H 6.73 H Est GFR ( Amer) 7 L 8 L Glucose 762 H* 332 H Lactic Acid 3.0 H Calcium 12.4 H* 12.6 H* Phosphorus 7.0 H Magnesium 2.8 H Total Bilirubin 0.6 AST 17 Alkaline Phosphatase 89 Ammonia Total Protein 7.1 Albumin 3.3 L Amylase 121 H Lipase TSH PTH Intact Urine Color Urine Appearance Urine pH Ur Specific [place] Urine Protein Urine Glucose (UA) Urine Ketones Urine Blood Urine RBC (Auto) 05/23/19 05/23/19 05/23/19 00:47 00:47 01:08 WBC Cancelled RBC Cancelled Hgb Cancelled Hct Cancelled MCV Cancelled MCH Cancelled MCHC Cancelled RDW Cancelled Plt Count Cancelled Seg Neutrophils % Cancelled VBG pH VBG pCO2 VBG HCO3 VBG Base Excess Sodium Potassium Chloride Carbon Dioxide Anion Gap BUN Creatinine Est GFR ( Amer) Glucose Lactic Acid Calcium Phosphorus Magnesium Total Bilirubin AST Alkaline Phosphatase Ammonia Total Protein Albumin Amylase Lipase TSH 1.22 PTH Intact 18.4 Urine Color Urine Appearance Urine pH Ur Specific [place] Urine Protein Urine Glucose (UA) Urine Ketones Urine Blood Urine RBC (Auto) 05/23/19 05/23/19 05/23/19 01:08 01:58 03:34 WBC 6.5 RBC 4.04 Hgb 8.8 L Hct 26.6 L MCV 66 L D MCH 21.8 L MCHC 33.1 RDW 17.5 H Plt Count 207 Seg Neutrophils % 82.2 H VBG pH VBG pCO2 VBG HCO3 VBG Base Excess Sodium 145.8 H Potassium 3.6 Chloride 115 H Carbon Dioxide 23 Anion Gap 8 BUN 84 H Creatinine 6.02 H Est GFR ( Amer) 9 L Glucose 145 H Lactic Acid Calcium 11.9 H Phosphorus Magnesium Total Bilirubin AST Alkaline Phosphatase Ammonia < 8.7 L Total Protein Albumin Amylase Lipase TSH PTH Intact Urine Color Urine Appearance Urine pH Ur Specific [place] Urine Protein Urine Glucose (UA) Urine Ketones Urine Blood Urine RBC (Auto) 05/23/19 05/23/19 05/23/19 08:35 08:35 09:02 WBC 6.8 RBC 4.00 Hgb 8.7 L Hct 27.1 L MCV 68 L MCH 21.9 L MCHC 32.2 RDW 17.5 H Plt Count 212 Seg Neutrophils % 76.9 VBG pH VBG pCO2 VBG HCO3 VBG Base Excess Sodium 145.0 Potassium 4.0 Chloride 115 H Carbon Dioxide 18 L Anion Gap 12 BUN 70 H Creatinine 4.91 H Est GFR ( Amer) 12 L Glucose 207 H Lactic Acid Calcium 11.3 H Phosphorus Magnesium Total Bilirubin AST Alkaline Phosphatase Ammonia Total Protein Albumin Amylase Lipase 1975.8 H TSH PTH Intact Urine Color Urine Appearance Urine pH Ur Specific [place] Urine Protein Urine Glucose (UA) Urine Ketones Urine Blood Urine RBC (Auto) 05/23/19 11:50 WBC RBC Hgb Hct MCV MCH MCHC RDW Plt Count Seg Neutrophils % VBG pH VBG pCO2 VBG HCO3 VBG Base Excess Sodium 145.8 H Potassium 4.2 Chloride 114 H Carbon Dioxide 16 L Anion Gap 16 BUN 64 H Creatinine 4.38 H Est GFR ( Amer) 13 L Glucose 332 H Lactic Acid Calcium 11.1 H Phosphorus Magnesium Total Bilirubin AST Alkaline Phosphatase Ammonia Total Protein Albumin Amylase Lipase TSH PTH Intact Urine Color Urine Appearance Urine pH Ur Specific [place] Urine Protein Urine Glucose (UA) Urine Ketones Urine Blood Urine RBC (Auto) 05/22/19 18:00 Catheterized Urine Urine Culture - Final 2,000 col/ml Impressions: Abdomen/Pelvis CT 05/22/19 16:27 IMPRESSION: There are new innumerable tiny nodules present throughout the mesentery and upper retroperitoneum which involves the left upper quadrant as well as in the midline of the lower abdomen in the mesentery of the small bowel as well as the left pericolic gutter. Bulky percent lymphadenopathy in the infrahilar and lower paraesophageal locations. These findings are concerning for possible neoplastic process. Since the prior examination there has been development of fluid collections near the tail and distal body of the pancreas, 3 collections measure greater than 3.5 cm each. Chest X-Ray 05/23/19 06:08 IMPRESSION: NO ACUTE RADIOGRAPHIC FINDING IN THE CHEST. Assessment & Plan - Diagnosis (1) Acute pancreatitis Qualifiers: Pancreatitis type: unspecified pancreatitis type Acute pancreatitis complication: uninfected necrosis Qualified Code(s): K85.91 - Acute pancreatitis with uninfected necrosis, unspecified Is this a current diagnosis for this admission?: Yes (2) Acute renal failure Qualifiers: Acute renal failure type: unspecified Qualified Code(s): N17.9 - Acute kidney failure, unspecified Is this a current diagnosis for this admission?: Yes (3) Anemia Is this a current diagnosis for this admission?: Yes (4) Confused Is this a current diagnosis for this admission?: Yes (5) Dehydration Is this a current diagnosis for this admission?: Yes (6) Diabetic ketoacidosis Qualifiers: Diabetes mellitus type: other specified (including ALETHA) Diabetes mellitus complication detail: without coma Qualified Code(s): E13.10 - Other specified diabetes mellitus with ketoacidosis without coma Is this a current diagnosis for this admission?: Yes (7) Hypercalcemia Is this a current diagnosis for this admission?: Yes (8) Hyperkalemia Is this a current diagnosis for this admission?: Yes - Time Critical Time spent with patient: 15-24 minutes - Inpatient Certification Medical Necessity: Need For IV Fluids, Risk of Complication if Not Cared For in Hospital - Plan Summary Plan Summary: 44-year-old female with diabetic ketoacidosis due to acute pancreatitis with elevated lipase, BUN/creatinine, calcium. All her numbers today are getting better. Clinically she appears to be definitely improving. There is no surgical abdomen at this time. We will sign off. Call us for questions..
[2019-05-23] MEDS: CIPROFLOXACIN HCL 500 MG TABLET PO SCH (14:59)
[2019-05-24] MEDS: PANTOPRAZOLE SODIUM 40 MG TABLET.DR PO SCH (06:24)
[2019-05-24] MEDS: INSULIN REG, HUMAN 100 UNIT/ML 3 ML VIAL (PYX) SUBCUT SCH ×4 (06:27→23:17)
[2019-05-24] MEDS: HEPARIN SOD (PORCINE) 5,000 UNIT/ML 1 ML VIAL SUBCUT SCH ×3 (06:28→22:53)
[2019-05-24 07:06] LABS: ALBUMIN 2.9 g/dL (3.5-5.0); ALKALINE PHOSPHATASE 83 U/L (38-126); ANION GAP 13 (5-19); ASPARTATE AMINO TRANSFERASE 22 U/L (14-36); BILIRUBIN,DIRECT 0.4 mg/dL (0.0-0.4); BILIRUBIN,TOTAL 0.5 mg/dL (0.2-1.3); BLOOD UREA NITROGEN 45 mg/dL (7-20); CARBON DIOXIDE 19 mmol/L (22-30); CHLORIDE 117 mmol/L (98-107); GLUCOSE 179 mg/dL (75-110); PHOSPHORUS 2.6 mg/dL (2.5-4.5); POTASSIUM 3.3 mmol/L (3.6-5.0); TOTAL PROTEIN 6.9 g/dL (6.3-8.2)
[2019-05-24 07:14] LABS: PREALBUMIN 14.1 mg/dL (17.6-36.0)
[2019-05-24] MEDS ORDERED: DEXTROSE 10%-WATER 1,000 ML IV PRN (11:00)
[2019-05-24] MEDS ORDERED: AMINO ACIDS 5 %/DEXTROSE 20 % 1,000 ML IV PRN (11:00)
[2019-05-24] MEDS: CIPROFLOXACIN HCL 500 MG TABLET PO SCH (11:07)
[2019-05-24] MEDS: TAMSULOSIN HCL 0.4 MG CAP.SR.24H PO SCH (11:07)
[2019-05-24] MEDS: NORMAL SALINE 1000 ML 1,000 ML IV PRN (11:08)
--- NOTE | 2019-05-24 11:54 | PDOC CRITICAL CARE PROG REPORT ---
General Date:: 05/24/19 Hospital Day:: 2 Resuscitation Status: Full Code Events in the past 12 to 24 Hours:: Lipase better, renal function improved. More awake. Review of systems relevant to events:: GI, renal. Reason for ICU Addmission:: Hypotension, pancreatitis, ARF, DKA, hypothermia - Medications: Medications reviewed and adjusted accordingly: Yes Vasopressors:: None Sedation:: None Physical Exam Vital Signs: Temp Pulse Resp BP Pulse Ox 97.7 F 90 20 123/71 99 05/24/19 08:00 05/23/19 21:00 05/24/19 08:00 05/24/19 04:00 05/24/19 06:00 Intake & Output 05/23/19 05/24/19 05/25/19 06:59 06:59 06:59 Intake Total 5935 2119 Output Total 1925 4285 Balance 4010 -4285 2119 Weight 97.3 kg 99.9 kg Weight/Height Weight 99.9 kg Height 5 ft 2 in General appearance: PRESENT: no acute distress, well-developed, well-nourished Head exam: PRESENT: atraumatic, normocephalic Eye exam: PRESENT: conjunctiva pink, EOMI, PERRLA. ABSENT: scleral icterus Ear exam: PRESENT: normal external ear exam Mouth exam: PRESENT: moist, tongue midline Respiratory exam: PRESENT: clear to auscultation rose. ABSENT: rales, rhonchi, wheezes Cardiovascular exam: PRESENT: RRR. ABSENT: diastolic murmur, rubs, systolic murmur GI/Abdominal exam: PRESENT: normal bowel sounds, soft, tenderness - Mild. ABSENT: distended, guarding, mass, organolmegaly, rebound Rectal exam: PRESENT: deferred Gentrourinary exam: PRESENT: indwelling catheter Extremities exam: PRESENT: full ROM. ABSENT: calf tenderness, clubbing, pedal edema Musculoskeletal exam: PRESENT: normal inspection Neurological exam: PRESENT: alert, awake, oriented to person, oriented to place, oriented to time, oriented to situation, CN II-XII grossly intact. ABSENT: motor sensory deficit Skin exam: PRESENT: dry, intact, warm. ABSENT: cyanosis, rash Laboratory/Radiographs Laboratory Results: 05/23/19 09:02 05/24/19 06:30 02/25/20 02/26/20 11:50 06:30 Sodium 145.8 H 148.5 H Potassium 4.2 3.3 L Chloride 114 H 117 H Carbon Dioxide 16 L 19 L Anion Gap 16 13 BUN 64 H 45 H Creatinine 4.38 H 3.06 H Est GFR ( Amer) 13 L 20 L Glucose 332 H 179 H Calcium 11.1 H 11.0 H Phosphorus 2.6 Total Bilirubin 0.5 AST 22 Alkaline Phosphatase 83 Total Protein 6.9 Albumin 2.9 L Prealbumin 14.1 L Lipase 1010.3 H 05/22/19 16:40 Blood Blood Culture (PCR) - Final Staphylococcus Species 05/22/19 18:00 Catheterized Urine Urine Culture - Final 2,000 col/ml Impressions: Abdomen/Pelvis CT 05/22/19 16:27 IMPRESSION: There are new innumerable tiny nodules present throughout the mesentery and upper retroperitoneum which involves the left upper quadrant as well as in the midline of the lower abdomen in the mesentery of the small bowel as well as the left pericolic gutter. Bulky percent lymphadenopathy in the infrahilar and lower paraesophageal locations. These findings are concerning for possible neoplastic process. Since the prior examination there has been development of fluid collections near the tail and distal body of the pancreas, 3 collections measure greater than 3.5 cm each. Chest X-Ray 05/23/19 06:08 IMPRESSION: NO ACUTE RADIOGRAPHIC FINDING IN THE CHEST. All labs, radiographs, diagnostic studies and EKGs were personally reviewed: Yes In addition, reports of radiographic and diagnostic studies were read: Yes Assessment and Plan - Diagnosis (1) Acute pancreatitis Qualifiers: Pancreatitis type: unspecified pancreatitis type Acute pancreatitis complication: uninfected necrosis Qualified Code(s): K85.91 - Acute pancreatitis with uninfected necrosis, unspecified Is this a current diagnosis for this admission?: Yes Plan: Lipase down to about 1000. Mild pain, no nausea. Anticipate normalization in 2 days. (2) Dehydration Is this a current diagnosis for this admission?: Yes Plan: Resolved (3) Acute kidney injury superimposed on CKD Is this a current diagnosis for this admission?: Yes Plan: Improving (4) Renal calculus, bilateral Is this a current diagnosis for this admission?: Yes Plan: Stable. Plan Summary: Await floor bed should be ready for discharge in about 3 days. Critical Time Critical Time (minutes): 25 Level of Care: MEDICAL Anticipated discharge: Home Within: within 72 hours -: 1. The care of a critical patient is a dynamic process. This note is a area representative synopsis but static in nature. The timeframe for treatments given in order is not necessarily the actual time these treatments may have been done. 2. This patient requires critical care secondary to ongoing requirements for therapy not offered or safe outside the critical care environment. Transfer to a lower level of care will result in altered life or limb morbidity and mortality. 3. Multidisciplinary rounds completed. 4. ABCDE bundle addressed.
[2019-05-24] MEDS: PRENATAL VITAMIN W DHA CAPSULE PO SCH (12:19)
[2019-05-24] MEDS: METOPROLOL TARTRATE 50 MG TABLET PO SCH (12:20)
--- NOTE | 2019-05-24 14:35 | PDOC PROGRESS REPORT ---
Subjective Progress Note for:: 05/24/19 Subjective:: Patient is doing well. She is more awake today and is communicating better. She made about 4285 mL of urine output from yesterday. She said she is doing fine. She started eating some liquids but she said she feels like she is having indigestion whenever she eats. She denies any nausea nor vomiting. She also noticed a little bit of muscle twitching occasionally. We were able to get some records from Dr. Gypsy Chans, her primary care provider. On February 20, 2019 she had a BUN of 29, creatinine of 2.22 with EGFR of 30 with calcium of 12. On August 06, 2017 she had a BUN of 21, creatinine 1.29 with EGFR 59, and calcium of 10.8. Reason For Visit: ELEVATED BG, HYPOTHERMIA, ARF Physical Exam Vital Signs: Temp Pulse Resp BP Pulse Ox 97.7 F 117 H 16 127/83 H 100 05/24/19 14:00 05/24/19 09:00 05/24/19 14:00 05/24/19 13:01 05/24/19 14:00 Intake & Output 05/23/19 05/24/19 05/25/19 06:59 06:59 06:59 Intake Total 5935 2119 Output Total 1925 4285 1125 Balance 4010 -4285 994 Weight 97.3 kg 99.9 kg 99.9 kg Exam: General appearance: PRESENT: no acute distress, cooperative, well-developed, well-nourished Head exam: PRESENT: atraumatic, normocephalic Eye exam: PRESENT: conjunctiva pink, PERRLA. ABSENT: scleral icterus Neck exam: ABSENT: JVD Respiratory exam: PRESENT: Normal breath sounds. ABSENT: crackles, rales, rhonchi, unlabored, wheezes Cardiovascular exam: PRESENT: Regular rate rhythm -+S1, +S2. ABSENT: diastolic murmur, systolic murmur GI/Abdominal exam: PRESENT: normal bowel sounds, soft. ABSENT: guarding, mass, tenderness Extremities exam: ABSENT: No edema Neurological exam: PRESENT: alert, awake, oriented to person, place and time. Skin exam: PRESENT: dry, warm, Results Laboratory Results: 05/23/19 09:02 05/24/19 06:30 05/24/19 06:30 Sodium 148.5 H Potassium 3.3 L Chloride 117 H Carbon Dioxide 19 L Anion Gap 13 BUN 45 H Creatinine 3.06 H Est GFR ( Amer) 20 L Glucose 179 H Calcium 11.0 H Phosphorus 2.6 Total Bilirubin 0.5 AST 22 Alkaline Phosphatase 83 Total Protein 6.9 Albumin 2.9 L Prealbumin 14.1 L Lipase 1010.3 H 05/22/19 16:40 Blood Blood Culture (PCR) - Final Staphylococcus Species 05/22/19 18:00 Catheterized Urine Urine Culture - Final 2,000 col/ml Impressions: Abdomen/Pelvis CT 05/22/19 16:27 IMPRESSION: There are new innumerable tiny nodules present throughout the mesentery and upper retroperitoneum which involves the left upper quadrant as well as in the midline of the lower abdomen in the mesentery of the small bowel as well as the left pericolic gutter. Bulky percent lymphadenopathy in the infrahilar and lower paraesophageal locations. These findings are concerning for possible neoplastic process. Since the prior examination there has been development of fluid collections near the tail and distal body of the pancreas, 3 collections measure greater than 3.5 cm each. Chest X-Ray 05/23/19 06:08 IMPRESSION: NO ACUTE RADIOGRAPHIC FINDING IN THE CHEST. Assessment & Plan - Diagnosis (1) Acute kidney injury superimposed on CKD Is this a current diagnosis for this admission?: Yes Plan: Secondary to dehydration and hypotension causing initial acute prerenal azotemia leading to ATN. Currently nonoliguric and producing excellent amount of urine output. Continue current management with maintenance IV fluids. Avoid nephrotoxic medications. Baseline creatinine in January 2019 was 2.22. Her creatinine post discharge from [facility] few weeks ago was 1.7. (2) Acute pancreatitis Qualifiers: Pancreatitis type: unspecified pancreatitis type Acute pancreatitis complication: uninfected necrosis Qualified Code(s): K85.91 - Acute pancreatitis with uninfected necrosis, unspecified Is this a current diagnosis for this admission?: Yes Plan: Clinically improving. Blindmaker managing. (3) Diabetic ketoacidosis Qualifiers: Diabetes mellitus type: other specified (including ALETHA) Diabetes mellitus complication detail: without coma Qualified Code(s): E13.10 - Other specified diabetes mellitus with ketoacidosis without coma Is this a current diagnosis for this admission?: Yes Plan: Likely a result of acute pancreatitis. Improving. (4) Dehydration Is this a current diagnosis for this admission?: Yes Plan: Resolving. (5) Hypercalcemia Is this a current diagnosis for this admission?: Yes Plan: This appears to be a chronic problem. Patient is not aware of any work-up. Patient's phosphorus is within normal limits. Her chest x-ray and abdominal CT do not show any evidence of malignancy. We will check her vitamin D both 25 and 125, serum protein electrophoresis, PTH, PTH RP and NANCY level. (6) Renal calculus, bilateral Is this a current diagnosis for this admission?: Yes Plan: Status post bilateral ureteral stent placements at [facility]. (7) Anemia Is this a current diagnosis for this admission?: Yes - Time Time with patient: 15-25 minutes
--- NOTE | 2019-05-24 18:12 | Progress Note ---
Provider Note Provider Note: Patient downgraded from ICU to medical floor today. Received signout from performance specialist. Briefly, patient is a 44-year-old female with history of UTIs and renal stones and recent history of infected bilateral kidney stones with ureteral stenting advised and who presented with abdominal pain. Patient was noted to be having significant pancreatitis with renal failure. She has significant CASSANDRA with creatinine of 8 but has improved with IV fluids. Patient has been seen by nephrology. Orders initially placed for TPN however patient is starting to improve her oral intake. On liquid diet today. At this time patient states that she is tolerating diet though having some heartburn and indigestion with diet. Patient's vitals are currently stable at this time and patient's pancreatitis is improved. Patient's creatinine is also significantly improved. Was diagnosed with new onset diabetes mellitus with hemoglobin A1c of 11. Orders reviewed. Medications reviewed. Patient notably is on ciprofloxacin for prophylaxis, infected kidney stone. Will continue current regimen by prior former provider. I will also start patient on Lantus for diabetes mellitus new onset. Continue hydration. Plan to escalate diet tomorrow if any improvement. Still significantly dehydrated and needs aggressive hydration at this point.
[2019-05-24] MEDS ORDERED: INSULIN GLARGINE,HUM.REC.ANLOG 1,000 UNIT/10 ML VIAL (PYX) SUBCUT ONE (22:46)
[2019-05-24] MEDS: INSULIN GLARGINE,HUM.REC.ANLOG 1,000 UNIT/10 ML VIAL SUBCUT SCH (22:52)
[2019-05-25] MEDS: INSULIN REG, HUMAN 100 UNIT/ML 3 ML VIAL (PYX) SUBCUT SCH ×3 (06:17→17:48)
[2019-05-25] MEDS: HEPARIN SOD (PORCINE) 5,000 UNIT/ML 1 ML VIAL SUBCUT SCH ×3 (06:19→22:08)
[2019-05-25 07:01] LABS: ANION GAP 12 (5-19); BLOOD UREA NITROGEN 30 mg/dL (7-20); CALCIUM 11.1 mg/dL (8.4-10.2); CARBON DIOXIDE 19 mmol/L (22-30); CHLORIDE 110 mmol/L (98-107); GLUCOSE 370 mg/dL (75-110); PHOSPHORUS 2.5 mg/dL (2.5-4.5); POTASSIUM 3.5 mmol/L (3.6-5.0)
[2019-05-25 07:08] LABS: PREALBUMIN 13.8 mg/dL (17.6-36.0)
[2019-05-25] MEDS: INSULIN GLARGINE,HUM.REC.ANLOG 1,000 UNIT/10 ML VIAL SUBCUT SCH ×2 (09:51→22:13)
[2019-05-25] MEDS: TAMSULOSIN HCL 0.4 MG CAP.SR.24H PO SCH (09:51)
[2019-05-25] MEDS: CIPROFLOXACIN HCL 500 MG TABLET PO SCH (09:51)
[2019-05-25] MEDS: METOPROLOL TARTRATE 50 MG TABLET PO SCH (12:40)
[2019-05-25] MEDS: PRENATAL VITAMIN W DHA CAPSULE PO SCH (12:40)
[2019-05-25] MEDS ORDERED: 1/2 NORMAL SALINE 1,000 ML IV PRN (17:42)
--- NOTE | 2019-05-25 18:40 | PDOC PROGRESS REPORT ---
Subjective Progress Note for:: 05/25/19 Subjective:: Patient has been transferred to the regular floor from ICU. She has done very well. He continues to produce excellent amount of urine output of 2425 mL for the past 24 hours. She is now tolerating full liquid diet. Her abdominal pain resolved. Patient has informed me today that is been on Humira twice but she has had side effects with it was discontinued. Reason For Visit: ELEVATED BG, HYPOTHERMIA, ARF Physical Exam Vital Signs: Temp Pulse Resp BP Pulse Ox 98.2 F 109 H 20 125/62 100 05/25/19 08:16 05/25/19 08:16 05/25/19 08:16 05/25/19 08:16 05/25/19 08:16 Intake & Output 05/24/19 05/25/19 05/26/19 06:59 06:59 06:59 Intake Total 3726 Output Total 4285 2425 Balance -4285 1301 Weight 99.9 kg 81.6 kg Exam: General appearance: PRESENT: no acute distress, cooperative, well-developed, well-nourished Head exam: PRESENT: atraumatic, normocephalic Eye exam: PRESENT: conjunctiva pink, PERRLA. ABSENT: scleral icterus Neck exam: ABSENT: JVD Respiratory exam: PRESENT: Normal breath sounds. ABSENT: crackles, rales, rhonchi, unlabored, wheezes Cardiovascular exam: PRESENT: Regular rate rhythm -+S1, +S2. ABSENT: diastolic murmur, systolic murmur GI/Abdominal exam: PRESENT: normal bowel sounds, soft. ABSENT: guarding, mass, tenderness Extremities exam: ABSENT: No edema Neurological exam: PRESENT: alert, awake, oriented to person, place and time. Skin exam: PRESENT: dry, warm, Results Laboratory Results: 05/23/19 09:02 05/25/19 05:43 05/25/19 05/25/19 05:43 08:10 Sodium 141.1 Potassium 3.5 L Chloride 110 H Carbon Dioxide 19 L Anion Gap 12 BUN 30 H Creatinine 2.25 H Est GFR ( Amer) 29 L Glucose 370 H Calcium 11.1 H Phosphorus 2.5 Prealbumin 13.8 L Lipase 1304.2 H PTH Intact 6.7 L 05/22/19 16:40 Blood Blood Culture (PCR) - Final Staphylococcus Species Impressions: Abdomen/Pelvis CT 05/22/19 16:27 IMPRESSION: There are new innumerable tiny nodules present throughout the mesentery and upper retroperitoneum which involves the left upper quadrant as well as in the midline of the lower abdomen in the mesentery of the small bowel as well as the left pericolic gutter. Bulky percent lymphadenopathy in the infrahilar and lower paraesophageal locations. These findings are concerning for possible neoplastic process. Since the prior examination there has been development of fluid collections near the tail and distal body of the pancreas, 3 collections measure greater than 3.5 cm each. Chest X-Ray 05/23/19 06:08 IMPRESSION: NO ACUTE RADIOGRAPHIC FINDING IN THE CHEST. Assessment & Plan - Diagnosis (1) Acute kidney injury superimposed on CKD Is this a current diagnosis for this admission?: Yes Plan: Secondary to dehydration and hypotension causing initial acute prerenal azotemia leading to ATN. Currently nonoliguric and producing excellent amount of urine output. Kidney function continues to improve and almost at baseline. Continue current management with maintenance IV fluids. Avoid nephrotoxic medications. Baseline creatinine in January 2019 was 2.22. Her creatinine post discharge from [facility] few weeks ago was 1.7. (2) Acute pancreatitis Qualifiers: Pancreatitis type: unspecified pancreatitis type Acute pancreatitis complication: uninfected necrosis Qualified Code(s): K85.91 - Acute pancreatitis with uninfected necrosis, unspecified Is this a current diagnosis for this admission?: Yes Plan: Clinically improving. Full liquid diet. (3) Diabetic ketoacidosis Qualifiers: Diabetes mellitus type: other specified (including ALETHA) Diabetes mellitus complication detail: without coma Qualified Code(s): E13.10 - Other specified diabetes mellitus with ketoacidosis without coma Is this a current diagnosis for this admission?: Yes Plan: Likely a result of acute pancreatitis. Patient also is newly diagnosed with diabetes mellitus. Improved. (4) Dehydration Is this a current diagnosis for this admission?: Yes Plan: Resolving. (5) Hypercalcemia Is this a current diagnosis for this admission?: Yes Plan: This appears to be a chronic problem. Patient is not aware of any work-up. Patient's phosphorus is within normal limits. Her chest x-ray and abdominal CT do not show any evidence of malignancy. Her 25 vitamin D. Her PTH is 6.7 and 2 days ago it is 18.1 either low normal or normal. Pending results include serum protein electrophoresis, PTH RP and NANCY level. (6) Renal calculus, bilateral Is this a current diagnosis for this admission?: Yes Plan: Status post bilateral ureteral stent placements at [facility]. (7) Anemia Is this a current diagnosis for this admission?: Yes (8) Diabetes mellitus Is this a current diagnosis for this admission?: Yes Plan: Newly diagnosed. Hemoglobin A1c of 11.8. Hospitalist managing. - Time Time with patient: 15-25 minutes
--- NOTE | 2019-05-25 19:54 | PDOC PROGRESS REPORT ---
Subjective Progress Note for:: 05/25/19 Subjective:: Patient feels well today. She has been able to tolerate a diet even more. Denies any shortness of breath. Has mild abdominal pain but not significant mental disturbance. Reason For Visit: ELEVATED BG, HYPOTHERMIA, ARF Physical Exam Vital Signs: Temp Pulse Resp BP Pulse Ox 98.2 F 108 H 20 137/76 H 100 05/25/19 11:44 05/25/19 11:44 05/25/19 11:44 05/25/19 11:44 05/25/19 11:44 Intake & Output 05/24/19 05/25/19 05/26/19 06:59 06:59 06:59 Intake Total 3726 Output Total 4285 2425 Balance -4285 1301 Weight 99.9 kg 81.6 kg General appearance: PRESENT: no acute distress, cooperative Neck exam: ABSENT: JVD Respiratory exam: PRESENT: clear to auscultation rose, unlabored. ABSENT: tachypnea, wheezes Cardiovascular exam: PRESENT: +S1, +S2, tachycardia. ABSENT: irregular rhythm GI/Abdominal exam: PRESENT: normal bowel sounds, soft, tenderness. ABSENT: distended, firm, guarding, rebound, rigid Neurological exam: PRESENT: alert, awake, oriented to person, oriented to place, oriented to time Results Laboratory Results: 05/23/19 09:02 05/25/19 05:43 05/25/19 05/25/19 05:43 08:10 Sodium 141.1 Potassium 3.5 L Chloride 110 H Carbon Dioxide 19 L Anion Gap 12 BUN 30 H Creatinine 2.25 H Est GFR ( Amer) 29 L Glucose 370 H Calcium 11.1 H Phosphorus 2.5 Prealbumin 13.8 L Lipase 1304.2 H PTH Intact 6.7 L 05/22/19 16:40 Blood Blood Culture (PCR) - Final Staphylococcus Species Impressions: Abdomen/Pelvis CT 05/22/19 16:27 IMPRESSION: There are new innumerable tiny nodules present throughout the mesentery and upper retroperitoneum which involves the left upper quadrant as well as in the midline of the lower abdomen in the mesentery of the small bowel as well as the left pericolic gutter. Bulky percent lymphadenopathy in the infrahilar and lower paraesophageal locations. These findings are concerning for possible neoplastic process. Since the prior examination there has been development of fluid collections near the tail and distal body of the pancreas, 3 collections measure greater than 3.5 cm each. Chest X-Ray 05/23/19 06:08 IMPRESSION: NO ACUTE RADIOGRAPHIC FINDING IN THE CHEST. Assessment and Plan - Diagnosis (1) Acute pancreatitis Qualifiers: Pancreatitis type: unspecified pancreatitis type Acute pancreatitis complication: uninfected necrosis Qualified Code(s): K85.91 - Acute pancreatit is with uninfected necrosis, unspecified Is this a current diagnosis for this admission?: Yes (2) Diabetes mellitus Is this a current diagnosis for this admission?: Yes (3) Acute kidney injury superimposed on CKD Is this a current diagnosis for this admission?: Yes (4) Hypercalcemia Is this a current diagnosis for this admission?: Yes - Plan Summary Summary: Patient is That he seems to be improving. We will continue IV fluids. Patient is now tolerating more oral intake. As such I will discontinue TPN at this time and upgrade patient's diet to mechanical soft diet. Hopefully patient can tolerate this. We will continue patient on ciprofloxacin as suppressive therapy for infected renal stone will plan to stop in a couple of days. Continue work-up for hypercalcemia per nephrology. Currently PTH is normal and vitamin D 25 is also normal. Obtaining serum protein electrophoresis for further evaluation. Other serological work-up for autoimmune conditions has been negative at this time. Diabetes regimen has also been adjusted giving continued hyperglycemia. - Time Time Spent with patient: 15-24 minutes
[2019-05-25] MEDS: INSULIN LISPRO 100 UNIT/ML 3 ML VIAL SUBCUT SCH (22:09)
[2019-05-26] MEDS: HEPARIN SOD (PORCINE) 5,000 UNIT/ML 1 ML VIAL SUBCUT SCH ×3 (05:18→22:25)
[2019-05-26] MEDS: INSULIN LISPRO 100 UNIT/ML 3 ML VIAL SUBCUT SCH ×4 (08:10→22:26)
[2019-05-26] MEDS: PANTOPRAZOLE SODIUM 40 MG TABLET.DR PO SCH (09:02)
[2019-05-26] MEDS: CIPROFLOXACIN HCL 500 MG TABLET PO SCH (09:02)
[2019-05-26] MEDS: TAMSULOSIN HCL 0.4 MG CAP.SR.24H PO SCH (09:02)
[2019-05-26 09:36] LABS: ABSOLUTE BASOPHILS # (AUTO) 0.1 10^3/uL (0.0-0.2); ABSOLUTE EOSINOPHILS # (AUTO) 0.2 10^3/uL (0.0-0.6); ABSOLUTE LYMPHOCYTES (AUTO) 1.4 10^3/uL (0.5-4.7); ABSOLUTE MONOCYTES (AUTO) 0.7 10^3/uL (0.1-1.4); ABSOLUTE NEUT (AUTO) 3.8 10^3/uL (1.7-8.2); BASOPHILS % (AUTO) 1.3 % (0-2); EOSINOPHILS % (AUTO) 3.8 % (0-6); HEMATOCRIT 25.8 % (36.0-47.0); HEMOGLOBIN 8.5 g/dL (12.0-15.5); LYMPHOCYTES % (AUTO) 22.9 % (13-45); MEAN CORPUSCULAR HEMOGLOBIN 21.8 pg (27.0-33.4); MEAN CORPUSCULAR VOLUME 66 fl (80-97); PLATELET COUNT 192 10^3/uL (150-450); RED BLOOD COUNT 3.89 10^6/uL (3.72-5.28); RED CELL DISTRIBUTION WIDTH 17.9 % (11.5-14.0); TOTAL CELLS COUNTED % (AUTO) 100 %; WHITE BLOOD COUNT 6.2 10^3/uL (4.0-10.5)
[2019-05-26 10:10] LABS: ALBUMIN 2.8 g/dL (3.5-5.0); ALKALINE PHOSPHATASE 85 U/L (38-126); ANION GAP 10 (5-19); ASPARTATE AMINO TRANSFERASE 46 U/L (14-36); BILIRUBIN,DIRECT 0.4 mg/dL (0.0-0.4); BILIRUBIN,TOTAL 0.5 mg/dL (0.2-1.3); BLOOD UREA NITROGEN 19 mg/dL (7-20); CALCIUM 10.9 mg/dL (8.4-10.2); CARBON DIOXIDE 21 mmol/L (22-30); CHLORIDE 106 mmol/L (98-107); GLUCOSE 138 mg/dL (75-110); POTASSIUM 3.2 mmol/L (3.6-5.0); TOTAL PROTEIN 6.8 g/dL (6.3-8.2)
[2019-05-26] MEDS: INSULIN GLARGINE,HUM.REC.ANLOG 1,000 UNIT/10 ML VIAL SUBCUT SCH ×2 (10:53→22:25)
[2019-05-26] MEDS: CALCIUM CARBONATE 500 MG TAB.CHEW PO SCH ×3 (11:48→22:25)
[2019-05-26] MEDS: MAGNESIUM SULFATE/D5W 1 GM/100 ML RTUPB IV SCH ×2 (11:48→13:24)
[2019-05-26] MEDS: PRENATAL VITAMIN W DHA CAPSULE PO SCH (11:48)
[2019-05-26] MEDS: METOPROLOL TARTRATE 50 MG TABLET PO SCH (11:48)
[2019-05-26] MEDS ORDERED: 1/2 NORMAL SALINE 1,000 ML IV PRN (11:55)
--- NOTE | 2019-05-26 12:02 | PDOC PROGRESS REPORT ---
Subjective Progress Note for:: 05/26/19 Subjective:: 44-year-old female downgraded from ICU to medical floor yesterday. She has history of recurrent UTI associated with kidney stones and recent history of for infected bilateral kidney stones with ureteral stenting. Admitted with abdominal pain. Found to have a significant pancreatitis associated with renal failure. Creatinine is improved from 8.0 at the time of admission to 1.67 today. Able to tolerate soft diet. Abdomen is benign on examination. Magnesium is 1.2 give her magnesium supplementation potassium is 3.2 to provide potassium supplementations. Hemoglobin A1c is 11. Patient is requesting for Mylanta this morning to provide Mylanta. She is on half normal saline at 120 cc/h plan to decrease the fluids to 50 cc/h from today. Plan is to repeat the labs tomorrow. Reason For Visit: ELEVATED BG, HYPOTHERMIA, ARF Physical Exam Vital Signs: Temp Pulse Resp BP Pulse Ox 97.8 F 107 H 16 134/72 H 100 05/26/19 08:00 05/26/19 08:00 05/26/19 08:00 05/26/19 08:00 05/26/19 08:00 Intake & Output 05/25/19 05/26/19 05/27/19 06:59 06:59 06:59 Intake Total 3726 2179 Output Total 2425 2400 Balance 1301 -221 Weight 81.6 kg 82.5 kg General appearance: PRESENT: no acute distress, well-developed Head exam: PRESENT: atraumatic Eye exam: PRESENT: PERRLA Mouth exam: PRESENT: dry mucosa Teeth exam: PRESENT: poor dentation Neck exam: ABSENT: carotid bruit, JVD, lymphadenopathy, thyromegaly Respiratory exam: PRESENT: clear to auscultation rose. ABSENT: rales, rhonchi, wheezes Cardiovascular exam: PRESENT: RRR. ABSENT: diastolic murmur, rubs, systolic murmur GI/Abdominal exam: PRESENT: normal bowel sounds, soft. ABSENT: distended, guarding, mass, organolmegaly, rebound, tenderness Extremities exam: PRESENT: full ROM. ABSENT: calf tenderness, clubbing, pedal edema Neurological exam: PRESENT: alert, awake, oriented to person, oriented to place, oriented to time, oriented to situation, CN II-XII grossly intact. ABSENT: motor sensory deficit Psychiatric exam: PRESENT: appropriate affect, normal mood. ABSENT: homicidal ideation, suicidal ideation Results Laboratory Results: 05/26/19 09:10 05/26/19 09:10 05/26/19 05/26/19 09:10 09:10 WBC 6.2 RBC 3.89 Hgb 8.5 L Hct 25.8 L MCV 66 L MCH 21.8 L MCHC 33.0 RDW 17.9 H Plt Count 192 Seg Neutrophils % 61.0 Sodium 137.0 Potassium 3.2 L Chloride 106 Carbon Dioxide 21 L Anion Gap 10 BUN 19 Creatinine 1.67 H Est GFR ( Amer) 40 L Glucose 138 H Calcium 10.9 H Magnesium 1.2 L* Total Bilirubin 0.5 AST 46 H Alkaline Phosphatase 85 Total Protein 6.8 Albumin 2.8 L 05/22/19 16:40 Blood Blood Culture (PCR) - Final Staphylococcus Species 05/22/19 16:40 Blood Blood Culture - Final Staphylococcus Capitis Impressions: Abdomen/Pelvis CT 05/22/19 16:27 IMPRESSION: There are new innumerable tiny nodules present throughout the mesentery and upper retroperitoneum which involves the left upper quadrant as well as in the midline of the lower abdomen in the mesentery of the small bowel as well as the left pericolic gutter. Bulky percent lymphadenopathy in the infrahilar and lower paraesophageal locations. These findings are concerning for possible neoplastic process. Since the prior examination there has been development of fluid collections near the tail and distal body of the pancreas, 3 collections measure greater than 3.5 cm each. Chest X-Ray 05/23/19 06:08 IMPRESSION: NO ACUTE RADIOGRAPHIC FINDING IN THE CHEST. Assessment and Plan - Diagnosis (1) Acute kidney injury superimposed on CKD Is this a current diagnosis for this admission?: Yes Plan: Improving Secondary to dehydration and hypotension causing initial acute prerenal azotemia leading to ATN. Currently nonoliguric and producing excellent amount of urine output. Kidney function continues to improve and almost at baseline. Continue current management with maintenance IV fluids. Avoid nephrotoxic medications. Baseline creatinine in January 2019 was 2.22. Her creatinine post discharge from [facility] few weeks ago was 1.7. 05/26/2019-latest serum creatinine is 1.67 it is at baseline now. Plan is to decrease the IV fluids half-normal saline 120 cc/h to 50 cc/h. To repeat the labs tomorrow. Patient is nonoliguric. (2) Acute pancreatitis Qualifiers: Pancreatitis type: unspecified pancreatitis type Acute pancreatitis complication: uninfected necrosis Qualified Code(s): K85.91 - Acute pancreatitis with uninfected necrosis, unspecified Is this a current diagnosis for this admission?: Yes Plan: Lipase down to about 1000. Mild pain, no nausea. Anticipate normalization in 2 days. 05/26/19-on examination abdomen is soft. Able to tolerate the soft diet. No nausea no vomitings complaint today. laTest amylase is 121 lipase is 1300. Plan is to repeat the labs tomorrow. (3) Diabetic ketoacidosis Qualifiers: Diabetes mellitus type: other specified (including ALETHA) Diabetes mellitus complication detail: without coma Qualified Code(s): E13.10 - Other specified diabetes mellitus with ketoacidosis without coma Is this a current diagnosis for this admission?: Yes Plan: 05/26/2019-latest hemoglobin A1c is 11.0. On insulin sliding scale and Lantus twice a day. Blood sugars are low this morning to decrease the Lantus dose to 8 units subcu twice a day and continue with insulin sliding scale. Diet exercise weight loss lifestyle modifications discussed with the patient. (4) Hypercalcemia Is this a current diagnosis for this admission?: Yes Plan: This appears to be a chronic problem. Patient is not aware of any work-up. Patient's phosphorus is within normal limits. Her chest x-ray and abdominal CT do not show any evidence of malignancy. Her 25 vitamin D. Her PTH is 6.7 and 2 days ago it is 18.1 either low normal or normal. Pending results include serum protein electrophoresis, PTH RP and NANCY level. (5) Anemia Is this a current diagnosis for this admission?: No Plan: 05/26/2019-latest hemoglobin is 8.5. Anemia of chronic disease most likely secondary to CKD. (7) Hypomagnesemia Is this a current diagnosis for this admission?: Yes Plan: 05/26/2019-serum magnesium is 1.2 today to give 2 g of IV magnesium. (8) Hypokalemia Is this a current diagnosis for this admission?: Yes Plan: 05/26/2019-serum potassium today is 3.2 to give 40 mg of p.o. potassium today and treat to recheck labs tomorrow. - Plan Summary Summary: Patient is That he seems to be improving. We will continue IV fluids. Patient is now tolerating more oral intake. As such I will discontinue TPN at this time and upgrade patient's diet to mechanical soft diet. Hopefully patient can tolerate this. We will continue patient on ciprofloxacin as suppressive therapy for infected renal stone will plan to stop in a couple of days. Continue work-up for hypercalcemia per nephrology. Currently PTH is normal and vitamin D 25 is also normal. Obtaining serum protein electrophoresis for further evaluation. Other serological work-up for autoimmune conditions has been negative at this time. Diabetes regimen has also been adjusted giving continued hyperglycemia.
[2019-05-26] MEDS ORDERED: POTASSIUM CHLORIDE 10 MEQ TABLET.ER PO ONE (13:00)
--- NOTE | 2019-05-26 14:46 | PDOC PROGRESS REPORT ---
Subjective Progress Note for:: 05/26/19 Subjective:: Patient continues to do well. She is feeling much better. She has good urine output. She has no new complaints. Reason For Visit: ELEVATED BG, HYPOTHERMIA, ARF Physical Exam Vital Signs: Temp Pulse Resp BP Pulse Ox 97.6 F 98 24 H 108/63 100 05/26/19 11:40 05/26/19 11:40 05/26/19 11:40 05/26/19 11:40 05/26/19 11:40 Intake & Output 05/25/19 05/26/19 05/27/19 06:59 06:59 06:59 Intake Total 3726 2179 100 Output Total 2425 2400 Balance 1301 -221 100 Weight 81.6 kg 82.5 kg Exam: General appearance: PRESENT: no acute distress, cooperative, well-developed, well-nourished Head exam: PRESENT: atraumatic, normocephalic Eye exam: PRESENT: conjunctiva pale, PERRLA. ABSENT: scleral icterus Neck exam: ABSENT: JVD Respiratory exam: PRESENT: Normal breath sounds. ABSENT: crackles, rales, rhonchi, unlabored, wheezes Cardiovascular exam: PRESENT: Regular rate rhythm -+S1, +S2. ABSENT: diastolic murmur, systolic murmur GI/Abdominal exam: PRESENT: normal bowel sounds, soft. ABSENT: guarding, mass, tenderness Extremities exam: ABSENT: No edema Neurological exam: PRESENT: alert, awake, oriented to person, place and time. Skin exam: PRESENT: dry, warm, Results Laboratory Results: 05/26/19 09:10 05/26/19 09:10 05/26/19 05/26/19 09:10 09:10 WBC 6.2 RBC 3.89 Hgb 8.5 L Hct 25.8 L MCV 66 L MCH 21.8 L MCHC 33.0 RDW 17.9 H Plt Count 192 Seg Neutrophils % 61.0 Sodium 137.0 Potassium 3.2 L Chloride 106 Carbon Dioxide 21 L Anion Gap 10 BUN 19 Creatinine 1.67 H Est GFR ( Amer) 40 L Glucose 138 H Calcium 10.9 H Magnesium 1.2 L* Total Bilirubin 0.5 AST 46 H Alkaline Phosphatase 85 Total Protein 6.8 Albumin 2.8 L 05/22/19 16:40 Blood Blood Culture (PCR) - Final Staphylococcus Species 05/22/19 16:40 Blood Blood Culture - Final Staphylococcus Capitis Impressions: Abdomen/Pelvis CT 05/22/19 16:27 IMPRESSION: There are new innumerable tiny nodules present throughout the mesentery and upper retroperitoneum which involves the left upper quadrant as well as in the midline of the lower abdomen in the mesentery of the small bowel as well as the left pericolic gutter. Bulky percent lymphadenopathy in the infrahilar and lower paraesophageal locations. These findings are concerning for possible neoplastic process. Since the prior examination there has been development of fluid collections near the tail and distal body of the pancreas, 3 collections measure greater than 3.5 cm each. Chest X-Ray 05/23/19 06:08 IMPRESSION: NO ACUTE RADIOGRAPHIC FINDING IN THE CHEST. Assessment & Plan - Diagnosis (1) Acute kidney injury superimposed on CKD Is this a current diagnosis for this admission?: Yes Plan: Secondary to dehydration and hypotension causing initial acute prerenal azotemia leading to ATN. Currently nonoliguric and producing excellent amount of urine output. Kidney function continues to improve and almost at baseline. Continue current management with maintenance IV fluids. Avoid nephrotoxic medications. Baseline creatinine in January 2019 was 2.22. Her creatinine post discharge from [facility] few weeks ago was 1.7. Patient's creatinine today is 1.67 and is now on baseline kidney function. (2) Acute pancreatitis Qualifiers: Pancreatitis type: unspecified pancreatitis type Acute pancreatitis complication: uninfected necrosis Qualified Code(s): K85.91 - Acute panc reatitis with uninfected necrosis, unspecified Is this a current diagnosis for this admission?: Yes Plan: Clinically improving. Diet is being advanced. (3) Diabetic ketoacidosis Qualifiers: Diabetes mellitus type: other specified (including ALETHA) Diabetes mellitus complication detail: without coma Qualified Code(s): E13.10 - Other specified diabetes mellitus with ketoacidosis without coma Is this a current diagnosis for this admission?: Yes Plan: Likely a result of acute pancreatitis. Patient also is newly diagnosed with diabetes mellitus. Improved. (4) Dehydration Is this a current diagnosis for this admission?: Yes Plan: Resolved. (5) Hypercalcemia Is this a current diagnosis for this admission?: Yes Plan: This appears to be a chronic problem. Patient is not aware of any work-up. Patient's phosphorus is within normal limits. Her chest x-ray and abdominal CT do not show any evidence of malignancy. Her 25 vitamin D is 17.2. Her PTH is 6.7 and 2 days ago it is 18.1 either low normal or normal. NANCY level is mildly elevated at 89. Pending results include serum protein electrophoresis, and PTH RP . This issue can be further evaluated as an outpatient if the patient gets discharged home anytime soon. (6) Renal calculus, bilateral Is this a current diagnosis for this admission?: Yes Plan: Status post bilateral ureteral stent placements at [facility]. Follow-up with vitamin urologist. (7) Anemia Is this a current diagnosis for this admission?: No (8) Diabetes mellitus Is this a current diagnosis for this admission?: Yes Plan: Newly diagnosed. Hemoglobin A1c of 11.8. Hospitalist managing. - Notes Notes: No further recommendation from nephrology standpoint. We will sign off for now. - Time Time with patient: 15-25 minutes
[2019-05-27] MEDS: HEPARIN SOD (PORCINE) 5,000 UNIT/ML 1 ML VIAL SUBCUT SCH ×4 (05:31→23:24)
[2019-05-27 06:38] LABS: ABSOLUTE BASOPHILS # (AUTO) 0.1 10^3/uL (0.0-0.2); ABSOLUTE EOSINOPHILS # (AUTO) 0.2 10^3/uL (0.0-0.6); ABSOLUTE LYMPHOCYTES (AUTO) 1.2 10^3/uL (0.5-4.7); ABSOLUTE MONOCYTES (AUTO) 0.7 10^3/uL (0.1-1.4); ABSOLUTE NEUT (AUTO) 2.9 10^3/uL (1.7-8.2); BASOPHILS % (AUTO) 1.5 % (0-2); EOSINOPHILS % (AUTO) 4.5 % (0-6); HEMATOCRIT 24.7 % (36.0-47.0); HEMOGLOBIN 8.2 g/dL (12.0-15.5); LYMPHOCYTES % (AUTO) 22.9 % (13-45); MEAN CORPUSCULAR HEMOGLOBIN 22.1 pg (27.0-33.4); MEAN CORPUSCULAR HGB CONC 33.1 g/dL (32.0-36.0); MEAN CORPUSCULAR VOLUME 67 fl (80-97); MONOCYTES % (AUTO) 14.5 % (3-13); PLATELET COUNT 202 10^3/uL (150-450); RED BLOOD COUNT 3.71 10^6/uL (3.72-5.28); RED CELL DISTRIBUTION WIDTH 17.9 % (11.5-14.0); SEGMENTED NEUTROPHILS % (AUTO) 56.6 % (42-78); TOTAL CELLS COUNTED % (AUTO) 100 %; WHITE BLOOD COUNT 5.2 10^3/uL (4.0-10.5)
[2019-05-27 06:46] LABS: ALBUMIN 2.6 g/dL (3.5-5.0); ALKALINE PHOSPHATASE 91 U/L (38-126); AMYLASE 62 U/L (30-110); ANION GAP 7 (5-19); ASPARTATE AMINO TRANSFERASE 45 U/L (14-36); BILIRUBIN,TOTAL 0.4 mg/dL (0.2-1.3); BLOOD UREA NITROGEN 14 mg/dL (7-20); CALCIUM 10.5 mg/dL (8.4-10.2); CARBON DIOXIDE 21 mmol/L (22-30); CHLORIDE 109 mmol/L (98-107); GLUCOSE 152 mg/dL (75-110); POTASSIUM 3.5 mmol/L (3.6-5.0); TOTAL PROTEIN 6.2 g/dL (6.3-8.2)
[2019-05-27] MEDS: INSULIN LISPRO 100 UNIT/ML 3 ML VIAL SUBCUT SCH ×4 (08:10→23:22)
[2019-05-27] MEDS: PANTOPRAZOLE SODIUM 40 MG TABLET.DR PO SCH (08:13)
[2019-05-27] MEDS ORDERED: NORMAL SALINE 1000 ML 1,000 ML IV ONE (09:00)
[2019-05-27] MEDS: CIPROFLOXACIN HCL 500 MG TABLET PO SCH (09:22)
[2019-05-27] MEDS: TAMSULOSIN HCL 0.4 MG CAP.SR.24H PO SCH (09:22)
[2019-05-27] MEDS: POTASSIUM CHLORIDE 10 MEQ TABLET.ER PO SCH (09:22)
[2019-05-27] MEDS: ACETAMINOPHEN 325 MG TABLET PO PRN (09:23)
[2019-05-27] MEDS: PRENATAL VITAMIN W DHA CAPSULE PO SCH (11:34)
[2019-05-27] MEDS: INSULIN GLARGINE,HUM.REC.ANLOG 1,000 UNIT/10 ML VIAL SUBCUT SCH ×2 (11:37→23:24)
[2019-05-27] MEDS: METOPROLOL TARTRATE 50 MG TABLET PO SCH (11:38)
--- NOTE | 2019-05-27 14:51 | PDOC PROGRESS REPORT ---
Subjective Progress Note for:: 05/27/19 Subjective:: Today, patient complains of some epigastric pain after eating. Also very complains of some dizziness. Denies any fever or chills. Reason For Visit: ELEVATED BG, HYPOTHERMIA, ARF Physical Exam Vital Signs: Temp Pulse Resp BP Pulse Ox 98.0 F 94 20 118/72 93 05/27/19 11:31 05/27/19 11:31 05/27/19 11:31 05/27/19 11:31 05/27/19 11:31 Intake & Output 05/26/19 05/27/19 05/28/19 06:59 06:59 06:59 Intake Total 2179 458 1270 Output Total 2400 1275 1000 Balance -221 -817 270 Weight 82.5 kg 82.5 kg General appearance: PRESENT: no acute distress, cooperative Neck exam: ABSENT: JVD Respiratory exam: PRESENT: clear to auscultation rose, unlabored. ABSENT: tac hypnea, wheezes Cardiovascular exam: PRESENT: RRR, +S1, +S2. ABSENT: tachycardia GI/Abdominal exam: PRESENT: soft, tenderness - Very minimal. ABSENT: distended, firm, guarding, rebound, rigid Neurological exam: PRESENT: alert, awake, oriented to person, oriented to place, oriented to time, oriented to situation Results Laboratory Results: 05/27/19 05:00 05/27/19 05:00 05/27/19 05/27/19 05:00 05:00 WBC 5.2 RBC 3.71 L Hgb 8.2 L Hct 24.7 L MCV 67 L MCH 22.1 L MCHC 33.1 RDW 17.9 H Plt Count 202 Seg Neutrophils % 56.6 Sodium 137.2 Potassium 3.5 L Chloride 109 H Carbon Dioxide 21 L Anion Gap 7 BUN 14 Creatinine 1.61 H Est GFR ( Amer) 42 L Glucose 152 H Calcium 10.5 H Magnesium 1.7 Total Bilirubin 0.4 AST 45 H Alkaline Phosphatase 91 Total Protein 6.2 L Albumin 2.6 L Amylase 62 Lipase 1536.4 H 05/22/19 16:40 Blood Blood Culture (PCR) - Final Staphylococcus Species 05/22/19 16:40 Blood Blood Culture - Final Staphylococcus Capitis Impressions: Abdomen/Pelvis CT 05/22/19 16:27 IMPRESSION: There are new innumerable tiny nodules present throughout the mesentery and upper retroperitoneum which involves the left upper quadrant as we ll as in the midline of the lower abdomen in the mesentery of the small bowel as well as the left pericolic gutter. Bulky percent lymphadenopathy in the infrahilar and lower paraesophageal locations. These findings are concerning for possible neoplastic process. Since the prior examination there has been development of fluid collections near the tail and distal body of the pancreas, 3 collections measure greater than 3.5 cm each. Chest X-Ray 05/23/19 06:08 IMPRESSION: NO ACUTE RADIOGRAPHIC FINDING IN THE CHEST. Assessment and Plan - Diagnosis (1) Acute pancreatitis Qualifiers: Pancreatitis type: unspecified pancreatitis type Acute pancreatitis complication: uninfected necrosis Qualified Code(s): K85.91 - Acute pancrea titis with uninfected necrosis, unspecified Is this a current diagnosis for this admission?: Yes Plan: Acute pancreatitis flare seems to be resolving at this time. However etiology is still unknown. Possible causes include hypercalcemia or granulomatous infiltration. CT abdomen pelvis was done upon admission but no oral or IV contrast was used. I will check ultrasound of the right upper quadrant to rule out biliary tract/gallbladder disease. (2) Hypercalcemia Is this a current diagnosis for this admission?: Yes Plan: Corrected calcium today is 11.6. Work-up so far shows normal PTH and vitamin D 25. SPEP/UPEP pending. However it is concerning that patient's vitamin D-1-25 level is elevated as well as NANCY level. This in combination with patient's mediastinal adenopathy on chest CT suggest chronic granulomatous disease such as sarcoidosis as cause of her hypercalcemia. I will start patient on prednisone 20 mg twice a day to see if this helps with hypercalcemia. However elevated levels of vitamin D-1-25 level could also be seen in hematologic malignancies such as lymphoma given patient's abdominal and chest CT findings I will consult Oncology. Patient states that she has had [address] biopsy done in past few months which she says was normal. Will need to obtain these records (3) Diabetes mellitus Is this a current diagnosis for this admission?: Yes Plan: New diagnosis for patient. Hemoglobin A1c of 11. Lantus 18 units twice a day. (4) Acute kidney injury superimposed on CKD Is this a current diagnosis for this admission?: Yes Plan: CASSANDRA was secondary to ATN. CASSANDRA currently resolved and creatinine now at baseline. (5) Dyspepsia Is this a current diagnosis for this admission?: Yes Plan: No results of recent pancreatitis. We will also try Maalox and PPI. (6) Microcytic anemia Is this a current diagnosis for this admission?: Yes Plan: Uncertain if patient's acute drop compared to last month was from her surgical procedure at outside hospital. Will check iron studies and reticulocyte count. Currently globin stable. 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 Outpatient follow-up. - Time Time Spent with patient: 15-24 minutes
[2019-05-27] MEDS ORDERED: PREDNISONE 20 MG TABLET PO ONE (15:00)
--- NOTE | 2019-05-27 15:17 | PDOC CONSULTATION ---
Consultation Consult Date: 05/27/19 Provider Consulted: DEYSI EDWARDS Consult reason:: Hematology/Oncology was requested for patient with hypercalcemia and lymphadenopathy. History of Present Illness Admission Date/PCP: 05/22/19 18:50 EYAD SMALLS MD History of Present Illness: LAWRENCE GODWIN is a 44 year old female who follows with Dr. Bernal for primary care. She also sees Dr. Philip Caballero for rheumatology and Dr. Azra Caballero for Pulmonary. She has been followed for quite some time by dermatology for her psoriasis. However, recently a new rash formed. Dermatology was suspi cious for sarcoidosis. Skin biopsies only showed Spongiodermatitis. She underwent bronchoscopy with Lymph node needle biopsy and this was inconclusive. This was performed by Dr. Caballero in [place]. Over the past few days, prior to admission, she states that she has felt "loopy" and weak. On admission, she had acute renal failure, diabetic ketoacidosis, sepsis with Staph bacteremia, and hypercalcemia. She is now out of the ICU and states that she has been feeling much better. However, her blood sugar was a bit low earlier, so she has been drinking some juice. Past Medical History Cardiac Medical History: Reports: Hypertension Denies: Congestive Heart Failure, Coronary Artery Disease, Myocardial Infarction, Heart Murmur Pulmonary Medical History: Denies: Asthma, Chronic Obstructive Pulmonary Disease (COPD) Endocrine Medical History: Reports: Other - Steroid-induced hyperglycemia Denies: Diabetes Mellitus Type 2, Hyperthyroidism, Hypothyroidism Renal/ Medical History: Reports: Nephrolithiasis, Other - Suspected history of chronic kidney disease with unknown baseline Musculoskeltal Medical History: Reports: Arthritis - Psoriatic/rheumatoid arthritis Skin Medical History: Reports: Psoriasis Infectious Medical History: Denies: HIV Past Surgical History Past Surgical History: Reports: Other - Bilateral ureteral stent placements Social History Lives with: Alone Smoking Status: Never Smoker Electronic Cigarette use?: No Frequency of Alcohol Use: Rare Hx Recreational Drug Use: No Drugs: None Hx Prescription Drug Abuse: No - Advance Directive Resuscitation Status: Full Code Family History Parental Family History Reviewed: Yes - Mother with DM. Paternal grandmother with Breast cancer. Children Family History Reviewed: No Sibling(s) Family History Reviewed.: NA Medication/Allergy Home Medications: Allopurinol [Zyloprim 100 mg Tablet] 100 mg PO DAILY 05/22/19 Allopurinol [Zyloprim 300 mg Tablet] 300 mg PO DAILY 05/22/19 Candesartan/Hydrochlorothiazid [Candesartan-Hctz 32-25 mg Tab] 1 tab PO DAILY 05/22/19 Ciprofloxacin HCl [Cipro 500 mg Tablet] 500 mg PO BID 05/22/19 Gabapentin [Neurontin 300 mg Capsule] 300 mg PO Q8 05/22/19 Hydrocodone/Acetaminophen [[place] 5-325 mg Tablet] 1 tab PO Q6HP PRN 05/22/19 Metoprolol Tartrate [Lopressor 50 mg Tablet] 50 mg PO 12 05/22/19 Ondansetron [Zofran Odt 4 mg Tablet] 4 mg PO Q6HP PRN 05/22/19 Pantoprazole Sodium [Protonix [address] Tablet] 40 mg PO QAM 05/22/19 Pnv 119/Iron Fum/Folic Acid [Se--19 Tablet] 1 tab PO DAILY 05/22/19 Prednisone 10 mg PO .TAPER 05/22/19 Tamsulosin HCl [Flomax 0.4 mg Cap.sr] 0.4 mg PO DAILY 05/22/19 Tizanidine HCl [Zanaflex 4 mg Tablet] 4 mg PO BIDP PRN 05/22/19 Allergies/Adverse Reactions: No Known Allergies Allergy (Unverified 04/24/19 02:03) Review of Systems Constitutional: ABSENT: fever(s), headache(s) Eyes: ABSENT: visual disturbances Ears: ABSENT: hearing changes Nose, Mouth, and Throat: ABSENT: sore throat Cardiovascular: ABSENT: chest pain Respiratory: PRESENT: dyspnea Gastrointestinal: PRESENT: heartburn Genitourinary: PRESENT: dysuria Musculoskeletal: PRESENT: muscle weakness Integumentary: PRESENT: rash Neurological: PRESENT: weakness Hematologic/Lymphatic: ABSENT: easy bleeding Physical Exam Vital Signs: Temp Pulse Resp BP Pulse Ox 98.0 F 94 20 118/72 93 05/27/19 11:31 05/27/19 11:31 05/27/19 11:31 05/27/19 11:31 05/27/19 11:31 Intake & Output 05/26/19 05/27/19 05/28/19 06:59 06:59 06:59 Intake Total 2176 682 1270 Output Total 4220 1275 1000 Balance -221 -817 270 Weight 82.5 kg 82.5 kg General appearance: PRESENT: no acute distress, well-developed, well-nourished Exam: 44 year old female. Family is at bedside. Head exam: PRESENT: atraumatic, normocephalic Eye exam: PRESENT: EOMI Mouth exam: PRESENT: tongue midline Neck exam: ABSENT: lymphadenopathy, tenderness Respiratory exam: PRESENT: clear to auscultation rose, unlabored Cardiovascular exam: PRESENT: RRR GI/Abdominal exam: PRESENT: soft. ABSENT: tenderness Extremities exam: ABSENT: pedal edema Neurological exam: PRESENT: alert, awake Psychiatric exam: PRESENT: appropriate affect Skin exam: PRESENT: other - rash over legs. Results Laboratory Results: 05/27/19 05:00 05/27/19 05:00 05/27/19 05/27/19 05:00 05:00 WBC 5.2 RBC 3.71 L Hgb 8.2 L Hct 24.7 L MCV 67 L MCH 22.1 L MCHC 33.1 RDW 17.9 H Plt Count 202 Seg Neutrophils % 56.6 Sodium 137.2 Potassium 3.5 L Chloride 109 H Carbon Dioxide 21 L Anion Gap 7 BUN 14 Creatinine 1.61 H Est GFR ( Amer) 42 L Glucose 152 H Calcium 10.5 H Magnesium 1.7 Total Bilirubin 0.4 AST 45 H Alkaline Phosphatase 91 Total Protein 6.2 L Albumin 2.6 L Amylase 62 Lipase 1536.4 H Impressions: Abdomen/Pelvis CT 05/22/19 16:27 IMPRESSION: There are new innumerable tiny nodules present throughout the mesentery and upper retroperitoneum which involves the left upper quadrant as well as in the midline of the lower abdomen in the mesentery of the small bowel as well as the left pericolic gutter. Bulky percent lymphadenopathy in the infrahilar and lower paraesophageal locations. These findings are concerning for possible neoplastic process. Since the prior examination there has been development of fluid collections near the tail and distal body of the pancreas, 3 collections measure greater than 3.5 cm each. Chest X-Ray 05/23/19 06:08 IMPRESSION: NO ACUTE RADIOGRAPHIC FINDING IN THE CHEST. Status: Image reviewed by me Assessment & Plan - Diagnosis (1) Acute renal failure Qualifiers: Acute renal failure type: unspecified Qualified Code(s): N17.9 - Acute kidney failure, unspecified Is this a current diagnosis for this admission?: Yes Plan: Now resolved. (2) Anemia Is this a current diagnosis for this admission?: Yes Plan: This is most likely multifactoral, including renal failure. Her WBC and PLT are normal. (3) Diabetic ketoacidosis Qualifiers: Diabetes mellitus type: other specified (including ALETHA) Diabetes mellitus complication detail: without coma Qualified Code(s): E13.10 - Other specified diabetes mellitus with ketoacidosis without coma Is this a current diagnosis for this admission?: Yes Plan: Resolved. (4) Hypercalcemia Is this a current diagnosis for this admission?: Yes Plan: This has improved. Her PTH was normal/low, so I do not believe this is due to parathyroid problem. Once her EGFR is >40, may consider bisphosphonate. I do not see that she has received this yet. (5) Severe sepsis Is this a current diagnosis for this admission?: Yes Plan: Staph bacteremia. Now resolving. - Plan Summary Plan Summary: I agree that the lymphadenopathy and dermatology issues may be due to a lymphoma. Best way to diagnose this is with a full excisional Lymph node biopsy. Prior Biopsy was needle via Bronch which may not be adequate. Consider discussion with the surgeons as to if LN biopsy is safe at this point. Skin biopsies did not confirm a cutaneous lymphoma. LN biopsy may also help with diagnosis of sarcoidosis. She has no "B" symptoms currently, but certainly may still have lymphoma. I will check ESR and LDH to see if this helps with diag nosis. Thank you for this consultation. Patient was discussed with Dr. Atkins. I will be happy to follow her. Please call for any concerns or questions.
[2019-05-27] MEDS: NORMAL SALINE 1000 ML 1,000 ML IV PRN (17:02)
--- NOTE | 2019-05-27 22:55 | RADIOLOGY REPORT (SQ) ---
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 COMPARISON: CT scan from 05/22/2019 TECHNIQUE: Grayscale and color Doppler imaging of the right upper quadrant was performed. FINDINGS: There is increased echogenicity of the hepatic parenchyma, likely representing hepatic steatosis. The main portal vein has normal hepatopetal flow. No shadowing gallstones are seen. No pericholecystic fluid or gallbladder wall thickening. The common bile duct is normal caliber. There is a 6.1 x 6.0 x 4.2 cm complex hypoechoic mass in the pancreatic tail which likely corresponds to complex lesion seen on recent CT scan. There is an additional 2.2 cm focal lesion superior to the pancreatic head and neck . There is a right-sided nephroureteral stent partially visualized along with multiple calcifications in the lower pole measuring up to 1.1 cm. The visualized portions of the IVC and aorta are patent. IMPRESSION: 6 cm complex pancreatic tail lesion along with an additional 2 cm lesion adjacent to the pancreatic head and neck, which were also present on prior study and may represent pseudocyst or neoplasm. Correlate with prior studies and clinical history.
[2019-05-27] MEDS: PREDNISONE 20 MG TABLET PO SCH (23:24)
[2019-05-28 05:33] LABS: ABSOLUTE RETICS # 0.086 10^6/uL (0.028-0.122); RETICULOCYTE COUNT (AUTO) 2.21 % (0.66-2.85)
[2019-05-28 05:54] LABS: IRON(TIBC) 35.5 ug/dL (37-170)
[2019-05-28] MEDS: HEPARIN SOD (PORCINE) 5,000 UNIT/ML 1 ML VIAL SUBCUT SCH ×3 (05:57→21:53)
[2019-05-28] MEDS: NORMAL SALINE 1000 ML 1,000 ML IV PRN ×2 (06:39→16:40)
[2019-05-28] MEDS: INSULIN LISPRO 100 UNIT/ML 3 ML VIAL SUBCUT SCH ×4 (07:37→21:45)
[2019-05-28] MEDS: PANTOPRAZOLE SODIUM 40 MG TABLET.DR PO SCH (07:37)
[2019-05-28] MEDS: MAG HYDROX/AL HYDROX/SIMETH SUSP 30 ML UDCUP PO PRN (07:41)
[2019-05-28 09:17] LABS: ALBUMIN 2.7 g/dL (3.5-5.0); ALKALINE PHOSPHATASE 106 U/L (38-126); ANION GAP 8 (5-19); ASPARTATE AMINO TRANSFERASE 37 U/L (14-36); BILIRUBIN,DIRECT 0.1 mg/dL (0.0-0.4); BILIRUBIN,TOTAL 0.4 mg/dL (0.2-1.3); BLOOD UREA NITROGEN 11 mg/dL (7-20); CALCIUM 10.8 mg/dL (8.4-10.2); CARBON DIOXIDE 19 mmol/L (22-30); CHLORIDE 111 mmol/L (98-107); GLUCOSE 183 mg/dL (75-110); POTASSIUM 4.5 mmol/L (3.6-5.0); TOTAL PROTEIN 6.5 g/dL (6.3-8.2)
[2019-05-28] MEDS: CIPROFLOXACIN HCL 500 MG TABLET PO SCH (10:31)
[2019-05-28] MEDS: PREDNISONE 20 MG TABLET PO SCH ×2 (10:31→21:47)
[2019-05-28] MEDS: TAMSULOSIN HCL 0.4 MG CAP.SR.24H PO SCH (10:31)
[2019-05-28] MEDS: POTASSIUM CHLORIDE 10 MEQ TABLET.ER PO SCH (10:31)
[2019-05-28] MEDS: INSULIN GLARGINE,HUM.REC.ANLOG 1,000 UNIT/10 ML VIAL SUBCUT SCH (10:32)
--- NOTE | 2019-05-28 11:20 | PDOC PROGRESS REPORT ---
Subjective Progress Note for:: 05/28/19 Subjective:: Today patient states that she was able to tolerate her breakfast without any epigastric pain this time. Explained to her the plan of care right now and she is agreeable to it. Reason For Visit: ELEVATED BG, HYPOTHERMIA, ARF Physical Exam Vital Signs: Temp Pulse Resp BP Pulse Ox 97.9 F 98 18 131/76 H 100 05/28/19 07:58 05/28/19 07:58 05/28/19 07:58 05/28/19 07:58 05/28/19 07:58 Intake & Output 05/27/19 05/28/19 05/29/19 06:59 06:59 06:59 Intake Total 458 2270 Output Total 1275 2200 Balance -817 70 Weight 82.5 kg 82.5 kg General appearance: PRESENT: no acute distress, cooperative Neck exam: ABSENT: JVD Respiratory exam: PRESENT: clear to auscultation rose, unlabored. ABSENT: tachypnea, wheezes Cardiovascular exam: PRESENT: RRR, +S1, +S2. ABSENT: tachycardia GI/Abdominal exam: PRESENT: normal bowel sounds, soft. ABSENT: rebound, rigid, tenderness Neurological exam: PRESENT: alert, awake, oriented to person, oriented to place, oriented to time Psychiatric exam: ABSENT: agitated, anxious Results Laboratory Results: 05/27/19 05:00 05/28/19 05:13 05/28/19 05/28/19 05/28/19 05:13 05:13 05:13 Retic Count (auto) 2.21 Sodium 138.2 Potassium 4.5 Chloride 111 H Carbon Dioxide 19 L Anion Gap 8 BUN 11 Creatinine 1.42 H Est GFR ( Amer) 49 L Glucose 183 H Calcium 10.8 H Magnesium 1.7 Iron 35.5 L TIBC 204 L % Saturation 17 Ferritin 432.00 H Total Bilirubin 0.4 AST 37 H Alkaline Phosphatase 106 Total Protein 6.5 Albumin 2.7 L Vitamin B12 908.0 Folate 10.70 05/22/19 18:51 Blood Blood Culture - Final NO GROWTH IN 5 DAYS Impressions: Abdomen/Pelvis CT 05/22/19 16:27 IMPRESSION: There are new innumerable tiny nodules present throughout the mesentery and upper retroperitoneum which involves the left upper quadrant as well as in the midline of the lower abdomen in the mesentery of the small bowel as well as the left pericolic gutter. Bulky percent lymphadenopathy in the infrahilar and lower paraesophageal locations. These findings are concerning for possible neoplastic process. Since the prior examination there has been development of fluid collections near the tail and distal body of the pancreas, 3 collections measure greater than 3.5 cm each. Chest X-Ray 05/23/19 06:08 IMPRESSION: NO ACUTE RADIOGRAPHIC FINDING IN THE CHEST. Abdomen Ultrasound 05/27/19 21:00 IMPRESSION: 6 cm complex pancreatic tail lesion along with an additional 2 cm lesion adjacent to the pancreatic head and neck, which were also present on prior study and may represent pseudocyst or neoplasm. Correlate with prior studies and clinical history. Assessment and Plan - Diagnosis (1) Acute pancreatitis Qualifiers: Pancreatitis type: unspecified pancreatitis type Acute pancreatitis complication: uninfected necrosis Qualified Code(s): K85.91 - Acute pancreatitis with uninfected necrosis, unspecified Is this a current diagnosis for this admission?: Yes Plan: Acute pancreatitis flare seems to be resolving at this time. However etiology i s still unknown. Possible causes include hypercalcemia or granulomatous infiltration. Abdominal ultrasound showing no evidence of cholelithiasis and normal common bile duct but shows 6 cm lesion on pancreas possibly pancreatic pseudocyst or mass. (2) Hypercalcemia Is this a current diagnosis for this admission?: Yes Plan: Corrected calcium today is 11.8. Work-up so far shows: normal PTH normal vitamin D 25 SPEP/UPEP pending. Elevated vitamin D-1-25 and NANCY level. This in combination with patient's mediastinal adenopathy on chest CT suggest granulomatous disease such as sarcoidosis as cause of her hypercalcemia. prednisone 20 mg twice a day to see if this helps with hypercalcemia. However elevated levels of vitamin D-1-25 level could also be seen in hematologic malignancies such as lymphoma especially given patient's abdominal and chest CT findings. Patient states that she has had Hilar LN biopsy done in past few months which she says was inconclusive. Ultimately will need to biopsy on of the nodules or LN hilar/RP to aid diagnosis. Oncology recommending excisional biopsy. I will try to coordinate with Surgery and oncology to determine what would be best to sample. (3) Diabetes mellitus Is this a current diagnosis for this admission?: Yes Plan: New diagnosis for patient. Hemoglobin A1c of 11. Lantus 18 units twice a day. Diabetes education. (4) Acute kidney injury superimposed on CKD Is this a current diagnosis for this admission?: Yes Plan: CASSANDRA was secondary to ATN. CASSANDRA currently resolved and creatinine now at baseline. (5) Dyspepsia Is this a current diagnosis for this admission?: Yes Plan: Improved with Maalox and PPI. (6) Microcytic anemia Is this a current diagnosis for this admission?: Yes Plan: Labs reviewed and depicting anemia of chronic disease (7) Renal calculus Is this a current diagnosis for this admission?: Yes Plan: Was on ciprofloxacin for a week for treatment of infected renal stone diagnosed at outside hospital which I will d/c today. (8) Psoriasis Is this a current diagnosis for this admission?: Yes Plan: Patient reports that she was diagnosed with psoriasis with psoriatic arthritis by her compound worker. Outpatient follow-up w/ her rheum. - Time Time Spent with patient: 15-24 minutes
[2019-05-28] MEDS: METOPROLOL TARTRATE 50 MG TABLET PO SCH (12:20)
[2019-05-28] MEDS: PRENATAL VITAMIN W DHA CAPSULE PO SCH (12:20)
[2019-05-28] MEDS ORDERED: INSULIN GLARGINE,HUM.REC.ANLOG 1,000 UNIT/10 ML VIAL SUBCUT SCH (22:00)
[2019-05-29] MEDS: NORMAL SALINE 1000 ML 1,000 ML IV PRN (01:26)
[2019-05-29] MEDS: HEPARIN SOD (PORCINE) 5,000 UNIT/ML 1 ML VIAL SUBCUT SCH ×3 (05:32→22:35)
[2019-05-29 06:25] LABS: ALBUMIN 2.9 g/dL (3.5-5.0); ALKALINE PHOSPHATASE 98 U/L (38-126); ANION GAP 8 (5-19); ASPARTATE AMINO TRANSFERASE 28 U/L (14-36); BILIRUBIN,DIRECT 0.3 mg/dL (0.0-0.4); BILIRUBIN,TOTAL 0.4 mg/dL (0.2-1.3); BLOOD UREA NITROGEN 13 mg/dL (7-20); CALCIUM 11.1 mg/dL (8.4-10.2); CARBON DIOXIDE 20 mmol/L (22-30); CHLORIDE 113 mmol/L (98-107); GLUCOSE 192 mg/dL (75-110); POTASSIUM 4.5 mmol/L (3.6-5.0); TOTAL PROTEIN 6.8 g/dL (6.3-8.2)
[2019-05-29] MEDS: INSULIN LISPRO 100 UNIT/ML 3 ML VIAL SUBCUT SCH ×4 (07:37→22:34)
[2019-05-29] MEDS: PANTOPRAZOLE SODIUM 40 MG TABLET.DR PO SCH (07:37)
[2019-05-29] MEDS: MAG HYDROX/AL HYDROX/SIMETH SUSP 30 ML UDCUP PO PRN (07:42)
[2019-05-29] MEDS ORDERED: ZOLEDRONIC ACID 4 MG/100 ML RTU IV ONE ×2 (09:45→11:00)
--- NOTE | 2019-05-29 09:48 | PDOC PROGRESS REPORT ---
Subjective Progress Note for:: 05/29/19 Subjective:: 44-year-old female with history of UTIs and renal stones and recent history of infected bilateral kidney stones with ureteral stenting advised and who presented with abdominal pain. Patient was noted to be having significant pancreatitis with renal failure creatinine of 8 and initially admitted to ICU. CASSANDRA resolved with IV fluids. Patient has been seen by nephrology and thought to have had prerenal azotemia leading to ATN. Briefly placed for TPN however patient but discontinued on the GMF as she started tolerating oral intake. Was diagnosed with new onset diabetes mellitus with hemoglobin A1c of 11 and started on insulin. Orders reviewed. Medications reviewed. Patient notably on ciprofloxacin for tx of infected kidney stone which she has had for over 1 wk now. Being worked for hypercalcemia. 05/29/2019 Today patient endorses resolution of abdominal pain. She has been able to tolerate a diet without any issues. However calcium continues to rise this morning. Reason For Visit: ELEVATED BG, HYPOTHERMIA, ARF Physical Exam Vital Signs: Temp Pulse Resp BP Pulse Ox 98.3 F 91 18 151/99 H 100 05/29/19 07:50 05/29/19 07:50 05/29/19 07:50 05/29/19 07:50 05/29/19 07:50 Intake & Output 05/28/19 05/29/19 05/30/19 06:59 06:59 06:59 Intake Total 2270 3072 Output Total 2200 1100 Balance 70 1972 Weight 82.5 kg 82.5 kg General appearance: PRESENT: no acute distress, cooperative Neck exam: ABSENT: JVD Respiratory exam: PRESENT: clear to auscultation rose, unlabored. ABSENT: tachypnea, wheezes Cardiovascular exam: PRESENT: RRR, +S1, +S2. ABSENT: tachycardia GI/Abdominal exam: PRESENT: soft. ABSENT: rebound, rigid, tenderness Neurological exam: PRESENT: alert, awake, oriented to person, oriented to place, oriented to time Results Laboratory Results: 05/27/19 05:00 05/29/19 05:35 05/29/19 05:35 Sodium 140.8 Potassium 4.5 Chloride 113 H Carbon Dioxide 20 L Anion Gap 8 BUN 13 Creatinine 1.49 H Est GFR ( Amer) 46 L Glucose 192 H Calcium 11.1 H Total Bilirubin 0.4 AST 28 Alkaline Phosphatase 98 Total Protein 6.8 Albumin 2.9 L Impressions: Abdomen/Pelvis CT 05/22/19 16:27 IMPRESSION: There are new innumerable tiny nodules present throughout the mesentery and upper retroperitoneum which involves the left upper quadrant as well as in the midline of the lower abdomen in the mesentery of the small bowel as well as the left pericolic gutter. Bulky percent lymphadenopathy in the infrahilar and lower paraesophageal locations. These findings are concerning for possible neoplastic process. Since the prior examination there has been development of fluid collections near the tail and distal body of the pancreas, 3 collections measure greater than 3.5 cm each. Chest X-Ray 05/23/19 06:08 IMPRESSION: NO ACUTE RADIOGRAPHIC FINDING IN THE CHEST. Abdomen Ultrasound 05/27/19 21:00 IMPRESSION: 6 cm complex pancreatic tail lesion along with an additional 2 cm lesion adjacent to the pancreatic head and neck, which were also present on prior study and may represent pseudocyst or neoplasm. Correlate with prior studies and clinical history. Assessment and Plan - Diagnosis (1) Hypercalcemia Is this a current diagnosis for this admission?: Yes Plan: Work-up so far shows: normal PTH normal vitamin D 25 SPEP/UPEP pending....(outpt f/u) Elevated vitamin D-1-25 and NANCY level. This in combination with patient's mediastinal adenopathy on chest CT suggest chronic granulomatous disease such as sarcoidosis amongst others as cause of her hypercalcemia. However elevated levels of vitamin D-1-25 level could also be seen in hematologic malignancies such as lymphoma especially given patient's abdominal and chest CT findings. Patient states that she has had Hilar LN biopsy done in past few months by her Pulm Dr Azra Caballero which she says was inconclusive. Ultimately will need to biopsy of an excisional biopsy of either Hilar or Retroperitoneal lymph nodes as recommended by Oncology to aid diagnosis. Plan is to coordinate this outpatient and patient is to follow up with Dr. Pascal, Her coating and embossing unit operator and the Surgical clinic to determine how to best approach this. Currently patient is stable but her calcium level keeps on rising and thus is holding up discharge. This is despite starting on a short course prednisone 2 d ays ago preemptively in case of granulomatous/sarcoid etiology as well as IV hydration. Corrected calcium today is 12.0. As such, I will give patient a dose of zolendronic acid which should be good for at least 7 days duration now that her GFR is over 35. Hopefully we should see improvement by the morning. (2) Acute pancreatitis Qualifiers: Pancreatitis type: unspecified pancreatitis type Acute pancreatitis complication: uninfected necrosis Qualified Code(s): K85.91 - Acute pancreatitis with uninfected necrosis, unspecified Is this a current diagnosis for this admission?: Yes Plan: Acute pancreatitis flare clinically seems to have resolved. No need to trend lipase. Possible causes include hypercalcemia or granulomatous infiltration. Abdominal ultrasound showing no evidence of cholelithiasis and normal common bile duct but shows 6 cm lesion on pancreas possibly pancreatic pseudocyst or mass. Will need repeat imaging as outpatient. (3) Diabetes mellitus Is this a current diagnosis for this admission?: Yes Plan: New diagnosis for patient. Hemoglobin A1c of 11. Adjusted Lantus from 10 q12 to 15 qam and 12units qhs. Diabetes education. (4) Acute kidney injury superimposed on CKD Is this a current diagnosis for this admission?: Yes Plan: CASSANDRA was secondary to ATN. CASSANDRA currently resolved and creatinine now at baseline. (5) Dyspepsia Is this a current diagnosis for this admission?: Yes Plan: Resolved. Maalox and PPI (6) Microcytic anemia Is this a current diagnosis for this admission?: Yes Plan: Labs reviewed and depicting anemia of chronic disease. stable. (7) Renal calculus Is this a current diagnosis for this admission?: Yes Plan: Was continued on ciprofloxacin for a week for treatment of infected renal stone diagnosed at outside hospital. (8) Psoriasis Is this a current diagnosis for this admission?: Yes Plan: Patient reports that she was diagnosed with psoriasis with psoriatic arthritis b y her family court justice. Outpatient follow-up w/ her rheum. - Time Time Spent with patient: 15-24 minutes
[2019-05-29] MEDS: POTASSIUM CHLORIDE 10 MEQ TABLET.ER PO SCH (11:00)
[2019-05-29] MEDS: PREDNISONE 20 MG TABLET PO SCH ×2 (11:00→22:33)
[2019-05-29] MEDS: TAMSULOSIN HCL 0.4 MG CAP.SR.24H PO SCH (11:00)
[2019-05-29] MEDS: PRENATAL VITAMIN W DHA CAPSULE PO SCH (12:25)
[2019-05-29] MEDS: METOPROLOL TARTRATE 50 MG TABLET PO SCH (12:25)
[2019-05-29] MEDS ORDERED: INSULIN GLARGINE,HUM.REC.ANLOG 1,000 UNIT/10 ML VIAL (PYX) SUBCUT ONE (13:00)
[2019-05-29 17:36] LABS: A/G RATIO 0.7 (0.7-1.7); ALBUMIN 2 2.7 g/dL (2.9-4.4); BETA GLOBULINS 0.9 g/dL (0.7-1.3); GAMMA GLOBULIN 1.8 g/dL (0.4-1.8); GLOBULIN TOTAL 3.8 g/dL (2.2-3.9); MONOCLONAL SPIKE Not Observed g/dL (Not Observ); PROTEIN TOTAL SERUM 6.5 g/dL (6.0-8.5)
[2019-05-29] MEDS: INSULIN GLARGINE,HUM.REC.ANLOG 1,000 UNIT/10 ML VIAL SUBCUT SCH (22:33)
[2019-05-30] MEDS: HEPARIN SOD (PORCINE) 5,000 UNIT/ML 1 ML VIAL SUBCUT SCH ×3 (06:06→22:14)
[2019-05-30] MEDS: MAG HYDROX/AL HYDROX/SIMETH SUSP 30 ML UDCUP PO PRN ×2 (06:08→11:35)
[2019-05-30 07:09] LABS: ALBUMIN 3.1 g/dL (3.5-5.0); ALKALINE PHOSPHATASE 99 U/L (38-126); ANION GAP 9 (5-19); ASPARTATE AMINO TRANSFERASE 32 U/L (14-36); BILIRUBIN,DIRECT 0.4 mg/dL (0.0-0.4); BILIRUBIN,TOTAL 0.4 mg/dL (0.2-1.3); BLOOD UREA NITROGEN 16 mg/dL (7-20); CALCIUM 11.1 mg/dL (8.4-10.2); CARBON DIOXIDE 19 mmol/L (22-30); CHLORIDE 111 mmol/L (98-107); GLUCOSE 193 mg/dL (75-110); POTASSIUM 4.1 mmol/L (3.6-5.0); TOTAL PROTEIN 7.1 g/dL (6.3-8.2)
[2019-05-30] MEDS: INSULIN LISPRO 100 UNIT/ML 3 ML VIAL SUBCUT SCH ×4 (08:07→22:15)
[2019-05-30] MEDS: PANTOPRAZOLE SODIUM 40 MG TABLET.DR PO SCH (08:09)
[2019-05-30] MEDS: INSULIN GLARGINE,HUM.REC.ANLOG 1,000 UNIT/10 ML VIAL SUBCUT SCH ×2 (10:56→22:15)
[2019-05-30] MEDS: POTASSIUM CHLORIDE 10 MEQ TABLET.ER PO SCH (11:00)
[2019-05-30] MEDS: PREDNISONE 20 MG TABLET PO SCH ×2 (11:00→22:14)
[2019-05-30] MEDS: TAMSULOSIN HCL 0.4 MG CAP.SR.24H PO SCH (11:00)
[2019-05-30] MEDS: ACETAMINOPHEN 325 MG TABLET PO PRN (11:29)
[2019-05-30] MEDS: METOPROLOL TARTRATE 50 MG TABLET PO SCH (11:34)
[2019-05-30] MEDS: PRENATAL VITAMIN W DHA CAPSULE PO SCH (11:34)
[2019-05-31] MEDS: HEPARIN SOD (PORCINE) 5,000 UNIT/ML 1 ML VIAL SUBCUT SCH ×3 (05:43→21:07)
[2019-05-31] MEDS: PANTOPRAZOLE SODIUM 40 MG TABLET.DR PO SCH (07:01)
[2019-05-31] MEDS: INSULIN LISPRO 100 UNIT/ML 3 ML VIAL SUBCUT SCH ×4 (08:04→21:08)
[2019-05-31] MEDS: TAMSULOSIN HCL 0.4 MG CAP.SR.24H PO SCH (09:56)
[2019-05-31] MEDS: PREDNISONE 20 MG TABLET PO SCH ×2 (09:56→21:07)
[2019-05-31] MEDS: POTASSIUM CHLORIDE 10 MEQ TABLET.ER PO SCH (09:58)
[2019-05-31] MEDS: INSULIN GLARGINE,HUM.REC.ANLOG 1,000 UNIT/10 ML VIAL SUBCUT SCH ×2 (09:59→21:07)
[2019-05-31] MEDS: PRENATAL VITAMIN W DHA CAPSULE PO SCH (14:01)
[2019-05-31] MEDS: METOPROLOL TARTRATE 50 MG TABLET PO SCH (14:01)
--- NOTE | 2019-05-31 15:21 | PDOC PROGRESS REPORT ---
Subjective Progress Note for:: 05/30/19 Subjective:: Patient offers no new complaints Reason For Visit: ELEVATED BG, HYPOTHERMIA, ARF Physical Exam Vital Signs: Temp Pulse Resp BP Pulse Ox 97.3 F 75 19 145/91 H 100 05/30/19 12:00 05/30/19 12:00 05/30/19 12:00 05/30/19 12:00 05/30/19 12:00 Intake & Output 05/29/19 05/30/19 05/31/19 06:59 06:59 06:59 Intake Total 3072 2855 Output Total 1100 Balance 1972 2855 Weight 82.5 kg 82.5 kg General appearance: PRESENT: no acute distress, well-developed Head exam: PRESENT: normocephalic Eye exam: PRESENT: conjunctiva pink, PERRLA. ABSENT: scleral icterus Ear exam: PRESENT: normal external ear exam Mouth exam: PRESENT: tongue midline Neck exam: ABSENT: carotid bruit, JVD, lymphadenopathy, thyromegaly Respiratory exam: PRESENT: clear to auscultation rose. ABSENT: rales, rhonchi, wheezes Cardiovascular exam: PRESENT: RRR. ABSENT: diastolic murmur, rubs, systolic murmur Pulses: PRESENT: normal dorsalis pedis pul Vascular exam: PRESENT: normal capillary refill GI/Abdominal exam: PRESENT: normal bowel sounds, soft. ABSENT: distended, guarding, mass, organolmegaly, rebound, tenderness Rectal exam: PRESENT: deferred Extremities exam: PRESENT: full ROM. ABSENT: calf tenderness, clubbing, pedal edema Neurological exam: PRESENT: alert, awake, oriented to person, oriented to place, oriented to time, oriented to situation, CN II-XII grossly intact. ABSENT: motor sensory deficit Psychiatric exam: PRESENT: appropriate affect, normal mood. ABSENT: homicidal ideation, suicidal ideation Skin exam: PRESENT: dry, rash, warm. ABSENT: cyanosis Results Laboratory Results: 05/27/19 05:00 05/30/19 06:15 05/25/19 05/30/19 05:43 06:15 Sodium 139.0 Potassium 4.1 Chloride 111 H Carbon Dioxide 19 L Anion Gap 9 BUN 16 Creatinine 1.36 H Est GFR ( Amer) 51 L Glucose 193 H Calcium 11.1 H Total Bilirubin 0.4 AST 32 Alkaline Phosphatase 99 Total Protein 6.5 7.1 Albumin 2.7 L 3.1 L Impressions: Abdomen/Pelvis CT 05/22/19 16:27 IMPRESSION: There are new innumerable tiny nodules present throughout the mesentery and upper retroperitoneum which involves the left upper quadrant as well as in the midline of the lower abdomen in the mesentery of the small bowel as well as the left pericolic gutter. Bulky percent lymphadenopathy in the infrahilar and lower paraesophageal locations. These findings are concerning for possible neoplastic process. Since the prior examination there has been development of fluid collections near the tail and distal body of the pancreas, 3 collections measure greater than 3.5 cm each. Chest X-Ray 05/23/19 06:08 IMPRESSION: NO ACUTE RADIOGRAPHIC FINDING IN THE CHEST. Abdomen Ultrasound 05/27/19 21:00 IMPRESSION: 6 cm complex pancreatic tail lesion along with an additional 2 cm lesion adjacent to the pancreatic head and neck, which were also present on prior study and may represent pseudocyst or neoplasm. Correlate with prior studies and clinical history. Assessment and Plan - Diagnosis (1) Acute pancreatitis Qualifiers: Pancreatitis type: unspecified pancreatitis type Acute pancreatitis complication: uninfected necrosis Qualified Code(s): K85.91 - Acute pancreatitis with uninfected necrosis, unspecified Is this a current diagnosis for this admission?: Yes Plan: Acute pancreatitis flare clinically seems to have resolved. No need to trend lipase. Possible causes include hypercalcemia or granulomatous infiltration. Abdominal ultrasound showing no evidence of cholelithiasis and normal common bile duct but shows 6 cm lesion on pancreas possibly pancreatic pseudocyst or mass. Follow up imaging as outpatient. (2) Acute renal failure Qualifiers: Acute renal failure type: unspecified Qualified Code(s): N17.9 - Acute kidney failure, unspecified Is this a current diagnosis for this admission?: Yes Plan: Resolved (3) Anemia Is this a current diagnosis for this admission?: Yes (4) Diabetes mellitus Is this a current diagnosis for this admission?: Yes (5) Hypercalcemia Is this a current diagnosis for this admission?: Yes Plan: Work-up so far shows: normal PTH normal vitamin D 25 SPEP/UPEP pending....(outpt f/u) Elevated vitamin D-1-25 and NANCY level. This in combination with patient's mediastinal adenopathy on chest CT suggest chronic granulomatous disease such as sarcoidosis amongst others as cause of her hypercalcemia. However elevated levels of vitamin D-1-25 level could also be seen in hematologic malignancies such as lymphoma especially given patient's abdominal and chest CT findings. Patient states that she has had Hilar LN biopsy done in past few months by her Pulm Dr Azra Caballero which she says was inconclusive. Ultimately will need to biopsy of an excisional biopsy of either Hilar or Retroperitoneal lymph nodes as recommended by Oncology to aid diagnosis. Plan is to coordinate this outpatient and patient is to follow up with Dr. Pascal, Her lathe puller and the Surgical clinic to determine how to best approach this. Currently patient is stable but her calcium level keeps on rising and thus is holding up discharge. This is despite starting on a short course prednisone 2 days ago preemptively in case of granulomatous/sarcoid etiology as well as IV hydration. Corrected calcium today is 12.0. As such, I will give patient a dose of zolendronic acid which should be good for at least 7 days duration now that her GFR is over 35. Hopefully we should see improvement by the morning. patient will need out patient follow up (6) Psoriasis Is this a current diagnosis for this admission?: Yes Plan: Patient reports that she was diagnosed with psoriasis with psoriatic arthritis by her returned goods sorter. Outpatient follow-up w/ her rheum. (7) Renal calculus Is this a current diagnosis for this admission?: Yes (8) Urinary tract infection Qualifiers: Urinary tract infection type: site unspecified Hematuria presence: with hematuria Qualified Code(s): N39.0 - Urinary tract infection, site not specified; R31.9 - Hematuria, unspecified Is this a current diagnosis for this admission?: Yes - Plan Summary Summary: Patient has a history of UTIs and nephrolithiasis and recent history of infected bilateral kidney stones with ureteral stenting who presents to the emergency room with abdominal pain. She was found to have pancreatitis and acute renal failure with creatinine of 8. Initially managed in the intensive care unit. CASSANDRA has resolved. She was diagnosed with diabetes mellitus with hemoglobin A1c of 11. She is currently being worked up for hypercalcemia. She did have a mediastinal adenopathy on chest CT suggesting chronic granulomatous disease such as sarcoidosis which may explain her hyperglycemia. She apparently had prior hilar lymph node biopsy done which was inconclusive. The plan is to do an excisional biopsy to aid in diagnosis. This can be done outpatient, with coordination with oncologist, lathe puller and surgery. His calcium continues to rise apparently holding upon discharge. She was started on a short course of prednisone as well as IV hydration. She received a dose of zoledronic acid which should be good for 1 week. Calcium today is at 11.1 basically unchanged from yesterday's value. Patient also remains acidotic
--- NOTE | 2019-05-31 15:22 | PDOC PROGRESS REPORT ---
Subjective Progress Note for:: 05/31/19 Subjective:: Patient offers no new complaints Reason For Visit: ELEVATED BG, HYPOTHERMIA, ARF Physical Exam Vital Signs: Temp Pulse Resp BP Pulse Ox 97.6 F 70 18 150/86 H 100 05/31/19 11:48 05/31/19 11:48 05/31/19 11:48 05/31/19 11:48 05/31/19 11:48 Intake & Output 05/30/19 05/31/19 06/01/19 06:59 06:59 06:59 Intake Total 2855 1687 Balance 2855 1687 Weight 82.5 kg 83.8 kg General appearance: PRESENT: no acute distress, well-developed, well-nourished Head exam: PRESENT: atraumatic, normocephalic Eye exam: PRESENT: conjunctiva pink, EOMI, PERRLA. ABSENT: scleral icterus Ear exam: PRESENT: normal external ear exam Mouth exam: PRESENT: moist, tongue midline Neck exam: ABSENT: carotid bruit, JVD, lymphadenopathy, thyromegaly Respiratory exam: PRESENT: clear to auscultation rose. ABSENT: rales, rhonchi, wheezes Cardiovascular exam: PRESENT: RRR. ABSENT: diastolic murmur, rubs, systolic murmur Pulses: PRESENT: normal dorsalis pedis pul Vascular exam: PRESENT: normal capillary refill GI/Abdominal exam: PRESENT: normal bowel sounds, soft. ABSENT: distended, guarding, mass, organolmegaly, rebound, tenderness Rectal exam: PRESENT: deferred Extremities exam: PRESENT: full ROM. ABSENT: calf tenderness, clubbing, pedal edema Neurological exam: PRESENT: alert, awake, oriented to person, oriented to place, oriented to time, oriented to situation, CN II-XII grossly intact. ABSENT: m otor sensory deficit Psychiatric exam: PRESENT: appropriate affect, normal mood. ABSENT: homicidal ideation, suicidal ideation Skin exam: PRESENT: intact, rash. ABSENT: cyanosis Results Laboratory Results: 05/27/19 05:00 05/30/19 06:15 Impressions: Abdomen/Pelvis CT 05/22/19 16:27 IMPRESSION: There are new innumerable tiny nodules present throughout the mesentery and upper retroperitoneum which involves the left upper quadrant as well as in the midline of the lower abdomen in the mesentery of the small bowel as well as the left pericolic gutter. Bulky percent lymphadenopathy in the infrahilar and lower paraesophageal locations. These findings are concerning for possible neoplastic process. Since the prior examination there has been development of fluid collections near the tail and distal body of the pancreas, 3 collections measure greater than 3.5 cm each. Chest X-Ray 05/23/19 06:08 IMPRESSION: NO ACUTE RADIOGRAPHIC FINDING IN THE CHEST. Abdomen Ultrasound 05/27/19 21:00 IMPRESSION: 6 cm complex pancreatic tail lesion along with an additional 2 cm lesion adjacent to the pancreatic head and neck, which were also present on prior study and may represent pseudocyst or neoplasm. Correlate with prior studies and clinical history. Assessment and Plan - Diagnosis (1) Acute pancreatitis Qualifiers: Pancreatitis type: unspecified pancreatitis type Acute pancreatitis complication: uninfected necrosis Qualified Code(s): K85.91 - Acute pancreatitis with uninfected necrosis, unspecified Is this a current diagnosis for this admission?: Yes (2) Acute renal failure Qualifiers: Acute renal failure type: unspecified Qualified Code(s): N17.9 - Acute kidney failure, unspecified Is this a current diagnosis for this admission?: Yes (3) Anemia Is this a current diagnosis for this admission?: Yes (4) Diabetes mellitus Is this a current diagnosis for this admission?: Yes (5) Hypercalcemia Is this a current diagnosis for this admission?: Yes (6) Psoriasis Is this a current diagnosis for this admission?: Yes (7) Renal calculus Is this a current diagnosis for this admission?: Yes (8) Urinary tract infection Qualifiers: Urinary tract infection type: site unspecified Hematuria presence: with hematuria Qualified Code(s): N39.0 - Urinary tract infection, site not specified; R31.9 - Hematuria, unspecified Is this a current diagnosis for this admission?: Yes - Plan Summary Summary: Patient has a history of UTIs and nephrolithiasis and recent history of infected bilateral kidney stones with ureteral stenting who presents to the emergency room with abdominal pain. She was found to have pancreatitis and acute renal failure with creatinine of 8. Initially managed in the intensive care unit. CASSANDRA has resolved. She was diagnosed with diabetes mellitus with hemoglobin A1c of 11. She is currently being worked up for hypercalcemia. She did have a mediastinal adenopathy on chest CT suggesting chronic granulomatous disease such as sarcoidosis which may explain her hyperglycemia. She apparently had prior hilar lymph node biopsy done which was inconclusive. The plan is to do an excisional biopsy to aid in diagnosis. This can be done outpatient, with coordination with oncologist, hand edge bander and surgery. His calcium continues to rise apparently holding upon discharge. She was started on a short course of prednisone as well as IV hydration. She received a dose of zoledronic acid which should be good for 1 week. Calcium today is at 11.1 basically unchanged Will follow up with labs in am - Time Time Spent with patient: 15-24 minutes
[2019-05-31 16:12] LABS: ANION GAP 6 (5-19); BLOOD UREA NITROGEN 18 mg/dL (7-20); CALCIUM 10.3 mg/dL (8.4-10.2); CARBON DIOXIDE 21 mmol/L (22-30); CHLORIDE 109 mmol/L (98-107); GLUCOSE 193 mg/dL (75-110); POTASSIUM 4.7 mmol/L (3.6-5.0)
[2019-06-01] MEDS: HEPARIN SOD (PORCINE) 5,000 UNIT/ML 1 ML VIAL SUBCUT SCH (05:17)
[2019-06-01 06:12] LABS: ABSOLUTE LYMPHOCYTES (AUTO) 1.3 10^3/uL (0.5-4.7); ABSOLUTE MONOCYTES (AUTO) 0.8 10^3/uL (0.1-1.4); ABSOLUTE NEUT (AUTO) 5.2 10^3/uL (1.7-8.2); BASOPHILS % (AUTO) 0.1 % (0-2); HEMATOCRIT 24.6 % (36.0-47.0); LYMPHOCYTES % (AUTO) 18.1 % (13-45); MEAN CORPUSCULAR HEMOGLOBIN 21.7 pg (27.0-33.4); MEAN CORPUSCULAR HGB CONC 32.4 g/dL (32.0-36.0); MEAN CORPUSCULAR VOLUME 67 fl (80-97); MONOCYTES % (AUTO) 11.3 % (3-13); PLATELET COUNT 335 10^3/uL (150-450); RED BLOOD COUNT 3.68 10^6/uL (3.72-5.28); RED CELL DISTRIBUTION WIDTH 18.1 % (11.5-14.0); SEGMENTED NEUTROPHILS % (AUTO) 70.5 % (42-78); TOTAL CELLS COUNTED % (AUTO) 100 %
[2019-06-01 06:38] LABS: WHITE BLOOD COUNT 7.3 10^3/uL (4.0-10.5)
[2019-06-01] MEDS: INSULIN LISPRO 100 UNIT/ML 3 ML VIAL SUBCUT SCH ×2 (07:58→12:08)
[2019-06-01] MEDS: PANTOPRAZOLE SODIUM 40 MG TABLET.DR PO SCH (07:59)
[2019-06-01 08:20] VITALS: BP 147/76
[2019-06-01] MEDS: TAMSULOSIN HCL 0.4 MG CAP.SR.24H PO SCH (10:04)
[2019-06-01] MEDS: PREDNISONE 20 MG TABLET PO SCH (10:04)
[2019-06-01] MEDS: POTASSIUM CHLORIDE 10 MEQ TABLET.ER PO SCH (10:04)
[2019-06-01] MEDS: INSULIN GLARGINE,HUM.REC.ANLOG 1,000 UNIT/10 ML VIAL SUBCUT SCH (10:05)
[2019-06-01] MEDS: METOPROLOL TARTRATE 50 MG TABLET PO SCH (12:12)
[2019-06-01] MEDS: PRENATAL VITAMIN W DHA CAPSULE PO SCH (12:12)
--- NOTE | 2019-06-01 13:44 | PDOC PROGRESS REPORT ---
Subjective Progress Note for:: 06/01/19 Subjective:: Patient denies any new complaints today. She states that she feels well enough to go home. Hospitalists were awaiting decrease in her Ca levels. She is currently asymptomatic from her hypercalcemia. Reason For Visit: ELEVATED BG, HYPOTHERMIA, ARF Physical Exam Vital Signs: Temp Pulse Resp BP Pulse Ox 97.7 F 75 17 147/76 H 96 06/01/19 11:07 06/01/19 11:07 06/01/19 11:07 06/01/19 11:07 06/01/19 11:07 Intake & Output 05/31/19 06/01/19 06/02/19 06:59 06:59 06:59 Intake Total 1687 462 Balance 1687 462 Weight 83.8 kg 83.6 kg General appearance: PRESENT: obese Head exam: PRESENT: normocephalic Eye exam: PRESENT: EOMI Respiratory exam: PRESENT: unlabored Extremities exam: ABSENT: pedal edema Neurological exam: PRESENT: alert, awake Psychiatric exam: PRESENT: appropriate affect Skin exam: PRESENT: normal color Results Laboratory Results: 06/01/19 05:26 05/31/19 15:45 05/31/19 06/01/19 15:45 05:26 WBC 7.3 RBC 3.68 L Hgb 8.0 L Hct 24.6 L MCV 67 L MCH 21.7 L MCHC 32.4 RDW 18.1 H Plt Count 335 Seg Neutrophils % 70.5 Sodium 135.7 L Potassium 4.7 Chloride 109 H Carbon Dioxide 21 L Anion Gap 6 BUN 18 Creatinine 1.35 H Est GFR ( Amer) 52 L Glucose 193 H Calcium 10.3 H Impressions: Abdomen/Pelvis CT 05/22/19 16:27 IMPRESSION: There are new innumerable tiny nodules present throughout the mesentery and upper retroperitoneum which involves the left upper quadrant as well as in the midline of the lower abdomen in the mesentery of the small bowel as well as the left pericolic gutter. Bulky percent lymphadenopathy in the infrahilar and lower paraesophageal locations. These findings are concerning for possible neoplastic process. Since the prior examination there has been development of fluid collections near the tail and distal body of the pancreas, 3 collections measure greater than 3.5 cm each. Chest X-Ray 05/23/19 06:08 IMPRESSION: NO ACUTE RADIOGRAPHIC FINDING IN THE CHEST. Abdomen Ultrasound 05/27/19 21:00 IMPRESSION: 6 cm complex pancreatic tail lesion along with an additional 2 cm lesion adjacent to the pancreatic head and neck, which were also present on prior study and may represent pseudocyst or neoplasm. Correlate with prior studies and clinical history. Assessment & Plan - Diagnosis (1) Acute renal failure Qualifiers: Acute renal failure type: unspecified Qualified Code(s): N17.9 - Acute kidney failure, unspecified Is this a current diagnosis for this admission?: Yes (2) Anemia Is this a current diagnosis for this admission?: Yes (3) Diabetic ketoacidosis Qualifiers: Diabetes mellitus type: other specified (including ALETHA) Diabetes mellitus complication detail: without coma Qualified Code(s): E13.10 - Other specified diabetes mellitus with ketoacidosis without coma Is this a current diagnosis for this admission?: Yes (4) Hypercalcemia Is this a current diagnosis for this admission?: Yes (5) Severe sepsis Is this a current diagnosis for this admission?: Yes - Time Time Spent with patient: Less than 15 minutes - Plan Summary Plan Summary: I agree with plans for discharge today. She will need to follow-up as outpatient for further plans to biopsy LN or pancreas. She should also follow with her pulmonary and rheumatologic providers.
--- NOTE | 2019-06-01 15:14 | PDOC DISCHARGE SUMMARY ---
Impression - Admit/DC Date/PCP Admission Date/Primary Care Provider: 05/22/19 18:50 EYAD SMALLS MD Discharge Date: 06/01/19 - Discharge Diagnosis (1) Acute pancreatitis Is this a current diagnosis for this admission?: Yes (2) Acute renal failure Is this a current diagnosis for this admission?: Yes (3) Anemia Is this a current diagnosis for this admission?: Yes (4) Diabetes mellitus Is this a current diagnosis for this admission?: Yes (5) Hypercalcemia Is this a current diagnosis for this admission?: Yes (6) Psoriasis Is this a current diagnosis for this admission?: Yes (7) Renal calculus Is this a current diagnosis for this admission?: Yes (8) Urinary tract infection Is this a current diagnosis for this admission?: Yes (9) Severe sepsis Is this a current diagnosis for this admission?: Yes - Assessment Summary: Patient has a history of UTIs and nephrolithiasis and recent history of infected bilateral kidney stones with ureteral stenting who presents to the emergency room with abdominal pain. She was found to have pancreatitis and acute renal failure with creatinine of 8. Initially managed in the intensive care unit. CASSANDRA has resolved. She was diagnosed with diabetes mellitus with hemoglobin A1c of 11. She is currently being worked up for hypercalcemia. She did have a mediastinal adenopathy on chest CT suggesting chronic granulomatous disease such as sarcoidosis which may explain her hyperglycemia. She apparently had prior hilar lymph node biopsy done which was inconclusive. The plan is to do an excisional biopsy to aid in diagnosis. This can be done outpatient, with coordination with oncologist, architectural technologist and surgery. She was started on a short course of prednisone as well as IV hydration. She received a dose of zoledronic acid which should be good for 1 week. C - Additional Information Resuscitation Status: Full Code Discharge Diet: Diabetic Discharge Activity: Activity As Tolerated Referrals: DEYSI EDWARDS MD [ACTIVE STAFF] - 06/19/19 3:30 pm (in 1-2 weeks. Please call office to schedule) EYAD SMALLS MD [Primary Care Provider] - 06/09/19 9:45 am (Patient needs referral and coordination for biopsy of pancreatic lesions and other studies as indicated) Prescriptions: Blood-Glucose Meter [Accu-Chek Guide Me Glucose Mtr] 1 each MC ASDIR PRN #1 each PRN Reason: Syring-Needl,Disp,Insul,0.3 ml [C[place] Insulin Syringe] 1 each ASDIR PRN #1 each PRN Reason: Prednisone [Deltasone 20 mg Tablet] 20 mg PO Q12 #20 tablet Pen Needle, Diabetic [Insulin Pen Needle] 1 each ASDIR PRN #1 each PRN Reason: Insulin Glargine,Hum.rec.anlog [Lantus Insulin 100 Unit/mL Insulin Pen] 14 unit SUBCUT Q12 #10 ml Home Medications: Allopurinol [Zyloprim 100 mg Tablet] 100 mg PO DAILY 05/22/19 Gabapentin [Neurontin 300 mg Capsule] 300 mg PO Q8 05/22/19 Hydrocodone/Acetaminophen [[place] 5-325 mg Tablet] 1 tab PO Q6HP PRN 05/22/19 Metoprolol Tartrate [Lopressor 50 mg Tablet] 50 mg PO 12 05/22/19 Ondansetron [Zofran Odt 4 mg Tablet] 4 mg PO Q6HP PRN 05/22/19 Pantoprazole Sodium [Protonix [address] Tablet] 40 mg PO QAM 05/22/19 Pnv 119/Iron Fum/Folic Acid [Se-Cinthya-19 Tablet] 1 tab PO DAILY 05/22/19 Tamsulosin HCl [Flomax 0.4 mg Cap.sr] 0.4 mg PO DAILY 05/22/19 Tizanidine HCl [Zanaflex 4 mg Tablet] 4 mg PO BIDP PRN 05/22/19 Blood-Glucose Meter [Accu-Chek Guide Me Glucose Mtr] 1 each ASDIR PRN #1 each 06/01/19 Insulin Glargine,Hum.rec.anlog [Lantus Insulin 100 Unit/mL Insulin Pen] 14 unit SUBCUT Q12 #10 ml 06/01/19 Pen Needle, Diabetic [Insulin Pen Needle] 1 each ASDIR PRN #1 each 06/01/19 Prednisone [Deltasone 20 mg Tablet] 20 mg PO Q12 #20 tablet 06/01/19 Syring-Needl,Disp,Insul,0.3 ml [Caretouch Insulin Syringe] 1 each ASDIR PRN #1 each 06/01/19 History of Present Illiness History of Present Illness: LAWRENCE GODWIN is a 44 year old female Hospital Course Hospital Course: Patient was admitted to ICU initially after presenting with abdominal pain. Patient was found to be septic. She was found to be in diabetic ketoacidosis, with significant pancreatitis and acute kidney injury with a creatinine as high as 8. She was started on aggressive hydration as well as insulin. She was thought to have prerenal azotemia with ATN secondary to dehydration. Hemoglobin A1c was 11. This was a newly discovered diabetes. Patient was also found to be hypercalcemic. Etiology of her hypercalcemia is not clear but CT scan showed possible granulomatosis findings and so a tentative diagnosis of sarcoidosis is been entertained. Patient was seen by nephrology, hematology as well as in tensivist during this admission. SPEP/UPEP currently pending for outpatient follow-up. She did have a mediastinal adenopathy on chest CT. This appears to be a chronic problem because patient had apparently had lymph node biopsy done as outpatient prior to admission. She will need further imaging studies and excisional biopsy done as outpatient and I have discussed with Dr. Marquez who will have to coordinate this with her outpatient physicians. Patient's kidney function continues to improve with hydration. Her calcium is also improved along the way and it is currently 10.3. She received aggressive IV fluids and she did receive a dose of Zomig on May 29. Patient was also found to have acute bronchitis. Abdominal ultrasound revealed no evidence of cholelithiasis with a normal CBD but she did have a 6 cm lesion on pancreas possibly secondary to pseudocyst or mass. This will need outpatient follow-up or biopsy as appropriate. She was started on insulin and she will need further adjustment of insulin as outpatient. She received diabetic teaching. Given all her comorbidities especially including the hypercalcemia patient may benefit from a referral to plasma processing technician. Patient also has a history of nephrolithiasis although there is did not present an acute problem while in hospital. With her lymphadenopathy and skin rashes, another consideration is lymphoma. It is felt that excisional biopsy may be productive. ESR was found to be elevated at 76 Patient has otherwise remained hemodynamically stable. She still has a bunch of work-up and these will be done as outpatient once discharged Physical Exam Vital Signs: Temp Pulse Resp BP Pulse Ox 97.7 F 75 17 147/76 H 96 06/01/19 11:07 06/01/19 11:07 06/01/19 11:07 06/01/19 11:07 06/01/19 11:07 Intake & Output 05/31/19 06/01/19 06/02/19 06:59 06:59 06:59 Intake Total 1687 462 Balance 1687 462 Weight 83.8 kg 83.6 kg General appearance: PRESENT: no acute distress, obese, well-developed Head exam: PRESENT: atraumatic Respiratory exam: PRESENT: clear to auscultation rose, unlabored. ABSENT: wheezes Cardiovascular exam: PRESENT: RRR, +S1, +S2 GI/Abdominal exam: PRESENT: normal bowel sounds, soft. ABSENT: tenderness Rectal exam: PRESENT: deferred Extremities exam: PRESENT: +1 edema. ABSENT: calf tenderness Neurological exam: PRESENT: alert, awake, oriented to person, oriented to time, oriented to situation, reflexes normal Psychiatric exam: PRESENT: appropriate affect Skin exam: PRESENT: rash - especially lower extreemities Results Laboratory Results: WBC 7.3 10^3/uL (4.0-10.5) 06/01/19 05:26 RBC 3.68 10^6/uL (3.72-5.28) L 06/01/19 05:26 Hgb 8.0 g/dL (12.0-15.5) L 06/01/19 05:26 Hct 24.6 % (36.0-47.0) L 06/01/19 05:26 MCV 67 fl (80-97) L 06/01/19 05:26 MCH 21.7 pg (27.0-33.4) L 06/01/19 05:26 MCHC 32.4 g/dL (32.0-36.0) 06/01/19 05:26 RDW 18.1 % (11.5-14.0) H 06/01/19 05:26 Plt Count 335 10^3/uL (150-450) 06/01/19 05:26 Lymph % (Auto) 18.1 % (13-45) 06/01/19 05:26 [place] % (Auto) 11.3 % (3-13) 06/01/19 05:26 Eos % (Auto) 0.0 % (0-6) 06/01/19 05:26 Baso % (Auto) 0.1 % (0-2) 06/01/19 05:26 Reticulocyte # 0.086 10^6/uL (0.028-0.122) 05/28/19 05:13 Absolute Neuts (auto) 5.2 10^3/uL (1.7-8.2) 06/01/19 05:26 Absolute Lymphs (auto) 1.3 10^3/uL (0.5-4.7) 06/01/19 05:26 Absolute Monos (auto) 0.8 10^3/uL (0.1-1.4) 06/01/19 05:26 Absolute Eos (auto) 0.0 10^3/uL (0.0-0.6) 06/01/19 05:26 Absolute Basos (auto) 0.0 10^3/uL (0.0-0.2) 06/01/19 05:26 Seg Neutrophils % 70.5 % (42-78) 06/01/19 05:26 Platelet Estimate Cancelled 05/23/19 01:08 ESR 76 mm/hr (0-20) H 05/27/19 16:00 Retic Count (auto) 2.21 % (0.66-2.85) 05/28/19 05:13 PT 14.4 SEC (11.4-15.4) 05/22/19 16:40 INR 1.11 05/22/19 16:40 VBG pH 7.26 (7.30-7.42) L 05/22/19 16:40 VBG pCO2 40.2 mmHg (35-63) 05/22/19 16:40 VBG HCO3 17.7 mmol/L (20-32) L 05/22/19 16:40 VBG Base Excess -8.8 mmol/L 05/22/19 16:40 Sodium 135.7 mmol/L (137-145) L 05/31/19 15:45 Potassium 4.7 mmol/L (3.6-5.0) 05/31/19 15:45 Chloride 109 mmol/L (98-107) H 05/31/19 15:45 Carbon Dioxide 21 mmol/L (22-30) L 05/31/19 15:45 Anion Gap 6 (5-19) 05/31/19 15:45 BUN 18 mg/dL (7-20) 05/31/19 15:45 Creatinine 1.35 mg/dL (0.52-1.25) H 05/31/19 15:45 Est GFR ( Amer) 52 (>60) L 05/31/19 15:45 Est GFR (MDRD) Non-Af 43 (>60) L 05/31/19 15:45 Glucose 193 mg/dL (75-110) H 05/31/19 15:45 POC Glucose 173 mg/dL (70-110) H 06/01/19 06:36 Hemoglobin A1c % 11.8 % (4.7-6.0) H 05/23/19 09:02 Lactic Acid 3.0 mmol/L (0.7-2.1) H 05/22/19 21:43 Calcium 10.3 mg/dL (8.4-10.2) H 05/31/19 15:45 Phosphorus 2.5 mg/dL (2.5-4.5) 05/25/19 05:43 Magnesium 1.7 mg/dL (1.6-2.3) 05/28/19 05:13 Iron 35.5 ug/dL (37-170) L 05/28/19 05:13 TIBC 204 ug/dL (250-450) L 05/28/19 05:13 % Saturation 17 % 05/28/19 05:13 Ferritin 432.00 ng/mL (6.2-137.0) H 05/28/19 05:13 Total Bilirubin 0.4 mg/dL (0.2-1.3) 05/30/19 06:15 Direct Bilirubin 0.4 mg/dL (0.0-0.4) 05/30/19 06:15 Neonat Total Bilirubin Not Reportable 05/30/19 06:15 Neonat Direct Bilirubin Not Reportable 05/30/19 06:15 Neonat Indirect Bili Not Reportable 05/30/19 06:15 AST 32 U/L (14-36) 05/30/19 06:15 ALT 22 U/L (<35) 05/30/19 06:15 Alkaline Phosphatase 99 U/L (38-126) 05/30/19 06:15 Ammonia < 8.7 umol/L (9-33) L 05/23/19 01:08 Lactate Dehydrogenase 266 U/L (120-246) H 05/27/19 16:00 Total Protein 7.1 g/dL (6.3-8.2) 05/30/19 06:15 Albumin 3.1 g/dL (3.5-5.0) L 05/30/19 06:15 Globulin 3.8 g/dL (2.2-3.9) 05/25/19 05:43 Albumin/Globulin Ratio 0.7 (0.7-1.7) 05/25/19 05:43 Prealbumin 13.8 mg/dL (17.6-36.0) L 05/25/19 05:43 Dakjh-7-Yxhxcickb 0.3 g/dL (0.0-0.4) 05/25/19 05:43 Beta Globulins 0.9 g/dL (0.7-1.3) 05/25/19 05:43 Gamma Globulins 1.8 g/dL (0.4-1.8) 05/25/19 05:43 M-Dirk Not Observed g/dL (Not Observ) 05/25/19 05:43 PEP Note Comment (.) 05/25/19 05:43 PEP Interpretation Comment (.) 05/25/19 05:43 Amylase 62 U/L (30-110) 05/27/19 05:00 Lipase 1536.4 U/L (23-300) H 05/27/19 05:00 Angiotensin Convert Enz 89 U/L (14-82) H 05/25/19 08:10 Vitamin B12 908.0 pg/mL (239-931) 05/28/19 05:13 Vitamin D 25-Hydroxy 17.2 ng/mL (14.7-68.3) 05/25/19 05:43 Vit D 1,25-Dihydroxy 87.8 pg/mL (19.9-79.3) H 05/25/19 05:43 Folate 10.70 ng/mL (>2.76) 05/28/19 05:13 TSH 1.22 uIU/mL (0.47-4.68) 05/23/19 00:47 PTH Intact 6.7 pg/mL (10.0-65.0) L 05/25/19 08:10 PTH Related Peptide Cancelled 05/25/19 05:43 Urine Color YELLOW 05/22/19 18:00 Urine Appearance CLOUDY 05/22/19 18:00 Urine pH 5.0 (5.0-9.0) 05/22/19 18:00 Ur Specific [place] 1.014 05/22/19 18:00 Urine Protein 30 mg/dL (NEGATIVE) H 05/22/19 18:00 Urine Glucose (UA) >=500 mg/dL (NEGATIVE) H 05/22/19 18:00 Urine Ketones 20 mg/dL (NEGATIVE) H 05/22/19 18:00 Urine Blood LARGE (NEGATIVE) H 05/22/19 18:00 Urine Nitrite (Reflex) NEGATIVE (NEGATIVE) 05/22/19 18:00 Urine Bilirubin NEGATIVE (NEGATIVE) 05/22/19 18:00 Urine Urobilinogen NEGATIVE mg/dL (<2.0) 05/22/19 18:00 Leukocyte Esterase Rfl LARGE (NEGATIVE) H 05/22/19 18:00 Urine RBC (Auto) >182 /HPF 05/22/19 18:00 Urine Bacteria (Auto) TRACE /HPF 05/22/19 18:00 Urine WBC (Reflex) 89 /HPF 05/22/19 18:00 Urine WBC Clumps MOD /HPF 05/22/19 18:00 Squamous Epi Cells Auto 3 /HPF 05/22/19 18:00 Urine Mucus (Auto) RARE /LPF 05/22/19 18:00 Urine Ascorbic Acid NEGATIVE (NEGATIVE) 05/22/19 18:00 Dexfx-0-Omuydjtda OMID 1.0 g/dL (0.4-1.0) 05/25/19 05:43 Slides for Path Review Cancelled 05/23/19 01:08 Impressions: Chest X-Ray 05/22/19 16:24 IMPRESSION: NO ACUTE RADIOGRAPHIC FINDING IN THE CHEST. Abdomen/Pelvis CT 05/22/19 16:27 IMPRESSION: There are new innumerable tiny nodules present throughout the mesentery and upper retroperitoneum which involves the left upper quadrant as well as in the midline of the lower abdomen in the mesentery of the small bowel as well as the left pericolic gutter. Bulky percent lymphadenopathy in the infrahilar and lower paraesophageal locations. These findings are concerning for possible neoplastic process. Since the prior examination there has been development of fluid collections near the tail and distal body of the pancreas, 3 collections measure greater than 3.5 cm each. Chest X-Ray 05/22/19 23:27 IMPRESSION: Satisfactory placement of central venous catheter copyright 2011 [employer]- All Rights Reserved Chest X-Ray 05/23/19 06:08 IMPRESSION: NO ACUTE RADIOGRAPHIC FINDING IN THE CHEST. Abdomen Ultrasound 05/27/19 21:00 IMPRESSION: 6 cm complex pancreatic tail lesion along with an additional 2 cm lesion adjacent to the pancreatic head and neck, which were also present on prior study and may represent pseudocyst or neoplasm. Correlate with prior studies and clinical history. Plan Health Concerns: Outpatient follow-up as advised, medication management, further biopsy as indicated, and follow-up with her subspecialist and primary care physician Stroke Is this a Stroke Patient?: No Acute Heart Failure - Is this a Heart Failure Patient?: No
== END 2019-06-01 14:43 | disposition home or self-care (01) | DRG 438 ==
LOC: ER 15:26 → EH 18:50 → ICU 22:05 → 4S 05-24 19:08
PROVIDERS: ADMIT Anesthesiology; ATTEND Anesthesiology
PROC: 02HV33Z Insertion of Infusion Device into Superior Vena Cava, Percutaneous Approach (ICD-10-PCS; principal; 2019-05-22)
DX: K85.91 Acute pancreatitis with uninfected necrosis, unspecified (principal); E11.10 Type 2 diabetes mellitus with ketoacidosis without coma; N17.0 Acute kidney failure with tubular necrosis; N39.0 Urinary tract infection, site not specified; L40.9 Psoriasis, unspecified; N20.0 Calculus of kidney; E86.0 Dehydration; J20.9 Acute bronchitis, unspecified; E11.65 Type 2 diabetes mellitus with hyperglycemia; T38.0X5A Adverse effect of glucocorticoids and synthetic analogues, initial encounter; I12.9 Hypertensive chronic kidney disease with stage 1 through stage 4 chronic kidney disease, or unspecified chronic kidney disease; N18.9 Chronic kidney disease, unspecified; K59.00 Constipation, unspecified; I95.89 Other hypotension; Z60.2 Problems related to living alone; E86.1 Hypovolemia; T68.XXXA Hypothermia, initial encounter; D63.1 Anemia in chronic kidney disease; E87.5 Hyperkalemia; L40.50 Arthropathic psoriasis, unspecified; Z79.4 Long term (current) use of insulin; Z79.899 Other long term (current) drug therapy
CPT/HCPCS: 36415; 71045; 74176; 76705; 80048; 80053; 81001; 82140; 82150; 82164; 82306; 82607; 82652; 82728; 82746; 82803; 82962; 83036; 83540; 83550; 83605; 83615; 83690; 83735; 83970; 84100; 84134; 84165; 84443; 85025; 85045; 85610; 85652; 87040; 87070; 87077; 87086; 87150; 87186; 93005; 93010; 96361; 96365; 99232; 99291; 99292; J0692; J1642; J1644; J1815; J3370; J3475; J3489; J3490; J7030; J7042; J7060; J7512

== ENCOUNTER 2019-09-18 14:58 | Emergency (ER) | payer OTHER ==
[2019-09-18 15:06] VITALS: BP 144/90
--- NOTE | 2019-09-18 15:40 | ER Document Report ---
ED Medical Screen (RME) - General Chief Complaint: Urinary Problem Stated Complaint: NEEDS UROSTOMY BAG FLUSHED Time Seen by Provider: 09/18/19 15:33 Primary Care Provider: EYAD SMALLS MD [Primary Care Provider] - Follow up as needed Mode of Arrival: Wheelchair Notes: HPI; 44-year-old female presents to the emergency room stating that her right nephrostomy tube stopped draining earlier today. Patient states that home health was unable to come see her today to try to drain the tube. States she had a nephrostomy put in due to kidney stones. She denies any fevers. No nausea, no vomiting. PE: Alert and oriented x3. Mild distress noted. Lungs: Clear to auscultation without rales rhonchi wheezes. Heart: Regular rate rhythm without murmurs rubs or gallops. Unable to assess nephrostomy tube in triage. I have greeted and performed a rapid initial assessment of this patient. A comprehensive ED assessment and evaluation of the patient, analysis of test results and completion of the medical decision making process will be conducted by additional ED providers. I have specifically instructed the patient or family members with the patient to immediately return to any nursing staff should anything change in the patient's condition or with their chief complaint. TRAVEL OUTSIDE OF THE [place] IN LAST 30 DAYS: No - Related Data Allergies/Adverse Reactions: No Known Allergies Allergy (Unverified 04/24/19 02:03) Past Medical History - Past Medical History Cardiac Medical History: Reports: Hx Hypertension Denies: Hx Congestive Heart Failure, Hx Coronary Artery Disease, Hx Heart Attack, Hx Heart Murmur Pulmonary Medical History: Denies: Hx Asthma, Hx COPD Endocrine Medical History: Denies: Hx Diabetes Mellitus Type 2, Hx Hyperthyroidism, Hx Hypothyroidism Musculoskeltal Medical History: Reports Hx Arthritis - Psoriatic/rheumatoid arthritis Skin Medical History: Reports Hx Psoriasis Infectious Medical History: Denies: Hx HIV Past Surgical History: Reports: Other - Bilateral ureteral stent placements Physical Exam - Vital signs Vitals: Temp Pulse Resp BP Pulse Ox 98.8 F 92 20 144/90 H 97 09/18/19 15:03 09/18/19 15:03 09/18/19 15:03 09/18/19 15:03 09/18/19 15:03 Course - Vital Signs Vital signs: Temp Pulse Resp BP Pulse Ox 98.8 F 92 20 144/90 H 97 09/18/19 15:03 09/18/19 15:03 09/18/19 15:03 09/18/19 15:03 09/18/19 15:03 Doctor's Discharge - Discharge Clinical Impression: Obstructed nephrostomy tube Condition: Stable Disposition: HOME, SELF-CARE Additional Instructions: If you wake up in the morning and your nephrostomy tube is still not draining urine then you need to call the urology office to arrange for them to replace the nephrostomy tube. Forms: Return to Work Referrals: EYAD SMALLS MD [Primary Care Provider] - Follow up as needed
[2019-09-18] MEDS ORDERED: CEFTRIAXONE INJ 1000 MG VIAL IM ONE (20:20)
--- NOTE | 2019-09-18 20:25 | ER Document Report ---
ED General - General Chief Complaint: Urinary Problem Stated Complaint: NEEDS NEPHROSTOMY BAG FLUSHED Time Seen by Provider: 09/18/19 15:33 Primary Care Provider: EYAD SMALLS MD [Primary Care Provider] - Follow up as needed Mode of Arrival: Wheelchair Information source: Patient TRAVEL OUTSIDE OF THE [place] IN LAST 30 DAYS: No - HPI Notes: Patient presents stating that her nephrostomy tube is not draining. She states she has no pain or other symptoms. She states she just noticed that the nephrostomy tube is not draining. She states this is happened before and she has had to have it flushed. She denies any other symptoms. Her symptoms of been constant. They obviously do not radiate. They are minor to moderate. Nothing makes them better or worse at this time. - Related Data Allergies/Adverse Reactions: No Known Allergies Allergy (Unverified 04/24/19 02:03) Past Medical History - General Information source: Patient - Social History Smoking Status: Never Smoker Frequency of alcohol use: None Drug Abuse: None Family History: Reviewed & Not Pertinent Patient has homicidal ideation: No - Past Medical History Cardiac Medical History: Reports: Hx Hypertension Denies: Hx Congestive Heart Failure, Hx Coronary Artery Disease, Hx Heart Attack, Hx Heart Murmur Pulmonary Medical History: Denies: Hx Asthma, Hx COPD Endocrine Medical History: Denies: Hx Diabetes Mellitus Type 2, Hx Hyperthyroidism, Hx Hypothyroidism Musculoskeletal Medical History: Reports Hx Arthritis - Psoriatic/rheumatoid arthritis Skin Medical History: Reports Hx Psoriasis Infectious Medical History: Denies: Hx HIV Past Surgical History: Reports: Other - Bilateral ureteral stent placements Review of Systems - Review of Systems Constitutional: denies: Chills, Fever Cardiovascular: denies: Chest pain, Palpitations Respiratory: denies: Cough, Short of breath -: Yes All other systems reviewed and negative Physical Exam - Vital signs Vitals: Temp Pulse Resp BP Pulse Ox 98.8 F 92 20 144/90 H 97 09/18/19 15:03 09/18/19 15:03 09/18/19 15:03 09/18/19 15:03 09/18/19 15:03 Interpretation: Normal - General General appearance: Appears well, Alert - HEENT Head: Normocephalic, Atraumatic Eyes: Normal Pupils: PERRL - Respiratory Respiratory status: No respiratory distress Chest status: Nontender Breath sounds: Normal Chest palpation: Normal - Cardiovascular Rhythm: Regular Heart sounds: Normal auscultation Murmur: No - Abdominal Inspection: Normal Distension: No distension Bowel sounds: Normal Tenderness: Nontender Organomegaly: No organomegaly - Back Back: Normal, Nontender, Other - Patient has a right nephrostomy tube in place. There is no leakage of fluid around it. There does appear to be sediment in the tube with some clear urine as well in the tube. There is approximately 20 to 30 cc of urine in the bag on her leg. - Extremities General upper extremity: Normal inspection, Nontender, Normal color, Normal ROM, Normal temperature General lower extremity: Normal inspection, Nontender, Normal color, Normal ROM, Normal temperature, Normal weight bearing. No: Leigh's sign - Neurological Neuro grossly intact: Yes Cognition: Normal Orientation: AAOx4 Shanna Coma Scale Eye Opening: Spontaneous Shanna Coma Scale Verbal: Oriented [place] Coma Scale Motor: Obeys Commands [place] Coma Scale Total: 15 Speech: Normal Motor strength normal: LUE, RUE, LLE, RLE Sensory: Normal - Psychological Associated symptoms: Normal affect, Normal mood - Skin Skin Temperature: Warm Skin Moisture: Dry Skin Color: Normal Course - Re-evaluation Re-evalutation: 09/18/19 20:23 I called and spoke with the patient's urologist at [facility]. He instructed me to flush the nephrostomy tube with 10 cc of saline after getting 1 dose of antibiotics. He states I could then discharge the patient home whether or not the flush was successful. He states it is successful that she can continue on with her normal daily activities. He states if the flush is not successful then when she wakes up in the morning she is to call their office and they will arrange for interventional radiology to replace nephrostomy tube. - Vital Signs Vital signs: Temp Pulse Resp BP Pulse Ox 98.8 F 92 20 144/90 H 97 09/18/19 15:03 09/18/19 15:03 09/18/19 15:03 09/18/19 15:03 09/18/19 15:03 Discharge - Discharge Clinical Impression: Obstructed nephrostomy tube Condition: Stable Disposition: HOME, SELF-CARE Additional Instructions: If you wake up in the morning and your nephrostomy tube is still not draining urine then you need to call the urology office to arrange for them to replace the nephrostomy tube. Forms: Return to Work Referrals: EYAD SMALLS MD [Primary Care Provider] - Follow up as needed
[2019-09-18] MEDS: LIDOCAINE 1% INJ-PF (10 MG/ML) 30 ML SDV NEB ONE ×2 (20:29→20:43)
[2019-09-18] MEDS ORDERED: LIDOCAINE 1% INJ (10 MG/ML) 10 ML MDV INJ ONE (20:42)
[2019-09-18] MEDS ORDERED: LIDOCAINE 1% INJ-PF (10 MG/ML) 30 ML SDV INJ ONE (20:46)
== END 2019-09-18 20:49 | disposition home or self-care (01) ==
LOC: ER 14:58
DX: T83.092A Other mechanical complication of nephrostomy catheter, initial encounter (principal); Y73.8 Miscellaneous gastroenterology and urology devices associated with adverse incidents, not elsewhere classified; I10 Essential (primary) hypertension
CPT/HCPCS: 99283; 96372; J3490; J0696

== ENCOUNTER → 2019-12-15 | Outpatient (CLI) | payer OTHER ==
--- NOTE | 2019-12-15 12:43 | RADIOLOGY REPORT (SQ) ---
EXAM DESCRIPTION: U/S RETROPERITON (RENAL/AORTA) IMAGES COMPLETED DATE/TIME: 12/15/2019 12:05 pm REASON FOR STUDY: N18.3 CHRONIC KIDNEY DISEASE, STAGE 3 (MODERATE) N18.3 CHRONIC KIDNEY DISEASE, ST AGE 3 (MODERATE) COMPARISON: None. TECHNIQUE: Dynamic and static grayscale images acquired of the kidneys and bladder and recorded on P ACS. Additional selected color Doppler and spectral images recorded. LIMITATIONS: None. FINDINGS: RIGHT KIDNEY: Normal size, 10.7 cm. Mild cortical thinning. There appear to be a couple lower calyceal calculi. LEFT KIDNEY: Normal size, 9.3 cm. Mild cortical thinning. BLADDER: No masses. Ureteral jets are seen. OTHER FINDINGS: No other significant finding. IMPRESSION: Mild atrophic changes bilaterally. Nonobstructing lower calyceal calculi in the right k idney. Normal bladder. TECHNICAL DOCUMENTATION: JOB ID: [id number] 2010 [employer]- All Rights Reserved Reading location - IP/workstation name: [email or web address]
== END ==
LOC: RAD 11:14
PROVIDERS: ATTEND Internal Medicine Nephrology
DX: N18.3 Chronic kidney disease, stage 3 (moderate) (principal); N20.0 Calculus of kidney
CPT/HCPCS: 76770